=== PATIENT | female | born 1965 | race Hispanic/Latino ===

== ENCOUNTER 2016-03-16 16:55 | Emergency (ER) | payer OTHER ==
[~2016-03-16 16:55] MED LIST: ADV500INH INH; ASPI81TA60 PO; CETI10TA PO; FLUT22IN INH; GABA600T PO; IBUP80TA PO; METF500T PO; NEXI20CA PO; PROA1AER INH; PULM1SUS INH; SING10TA32 PO; SPIR1CAP INH; TYLE500T78 PO; VALS1TAB47 PO; VENL37TA PO; ZITH500T PO
== END 2016-03-16 18:36 | disposition left against medical advice (07) ==
LOC: M ED 16:55
DX: R11.2 Nausea with vomiting, unspecified (principal); Z53.20 Procedure and treatment not carried out because of patient's decision for unspecified reasons

== ENCOUNTER 2016-08-20 00:22 | Emergency (ER) | payer OTHER ==
[~2016-08-20] VITALS: Ht 162.6 cm; Wt 88.9 kg
[2016-08-20 00:37] VITALS: BP 103/80
[2016-08-20] MEDS ORDERED: SERO400T PO (00:51)
[2016-08-20] MEDS ORDERED: CAPS0.1C EX (00:51)
[2016-08-20] MEDS ORDERED: PROZ20CA11 PO (00:51)
[2016-08-20] MEDS ORDERED: ASPI325T28 PO (00:51)
[2016-08-20] MEDS ORDERED: LUNE1TAB9 PO (00:51)
[2016-08-20] MEDS ORDERED: GEMF600T PO (00:51)
[2016-08-20] MEDS ORDERED: PROV100T4 PO (00:51)
[2016-08-20] MEDS ORDERED: LYRI75CA PO (00:51)
[2016-08-20] MEDS ORDERED: DONETAB5 PO (00:51)
[2016-08-20] MEDS ORDERED: XOLA150S SC (00:51)
[2016-08-20] MEDS ORDERED: plaquenil PO (00:51)
[2016-08-20] MEDS ORDERED: LIDOCAINE W/EPINEPHRINE 1% 20ML VIAL As Ordered ONE (02:41)
[2016-08-20] MEDS ORDERED: BUPIVACAINE HCL 0.5% 10 ML VIAL As Ordered ONE (02:41)
[2016-08-20] MEDS ORDERED: BUPIVACAINE HCL 0.5% 30 ML VIAL SC ONE (02:45)
[2016-08-20] MEDS ORDERED: LIDOCAINE W/EPINEPHRINE 1% 20ML VIAL SC ONE (02:45)
[2016-08-20] MEDS ORDERED: CETACAINE SPRAY 20GM (FLOOR STOCK) TOP ONE (02:45)
[2016-08-20] MEDS ORDERED: CETACAINE SPRAY 20GM (FLOOR STOCK) As Ordered ONE (02:46)
[2016-08-20] MEDS ORDERED: CLINDAMYCIN 150 MG CAP PO ONE (03:15)
[2016-08-20] MEDS ORDERED: CLIN1CAP5 PO (03:16)
== END 2016-08-20 03:40 | disposition home or self-care (01) ==
LOC: M ED 02:52
DX: K02.9 Dental caries, unspecified (principal); K08.89 Other specified disorders of teeth and supporting structures; I10 Essential (primary) hypertension; M79.7 Fibromyalgia; K21.9 Gastro-esophageal reflux disease without esophagitis; F32.9 Major depressive disorder, single episode, unspecified; Z79.82 Long term (current) use of aspirin; Z79.899 Other long term (current) drug therapy; Z79.84 Long term (current) use of oral hypoglycemic drugs; Z88.5 Allergy status to narcotic agent

== ENCOUNTER 2016-09-29 15:39 | Emergency (ER) | payer OTHER ==
[~2016-09-29] VITALS: Ht 162.6 cm; Wt 88.0 kg
[2016-09-29 15:39] VITALS: BP 118/63
[~2016-09-29 15:39] MED LIST changes: +ASPI325T28 PO; +CAPS0.1C EX; +CLIN150C14 PO; +DONETAB5 PO; +GEMF600T PO; +LUNE2TAB23 PO; +LYRI75CA PO; -METF500T PO; +METF500T13 PO; -PROA1AER INH; +PROAAER10 INH; +PROV100T25 PO; +PROZ20CA11 PO; +SERO400T PO; +XOLA150S SC; +plaquenil PO
[2016-09-29] MEDS ORDERED: NAPR500T3 PO (16:11)
[2016-09-29] MEDS ORDERED: CYCLOBENZAPRINE 10 MG TAB PO ONE (16:30)
[2016-09-29] MEDS ORDERED: KETOROLAC 60 MG/2 ML VIAL (J1885) IM ONE (16:30)
--- NOTE | 2016-09-29 17:24 | REP ---
CT LUMBAR SPINE WITHOUT CONTRAST: HISTORY: Back pain. There is no disc bulge or herniation at the L1-2 through L3-4 and L5-S1 levels. There is hypertrophy of the posterior articulating facets at the L5-S1 level. The nerves exit the neural foramina without compression. A diffuse disc bulge is present at the L4-5 level. There is minimal compression of the thecal sac. There is hypertrophy of the posterior articulating facets. There are 3 mm of grade 1 spondylolisthesis of L 4 on 5. The L4 nerves exit the neural foramina without compression. The intervertebral discs are normal in height. There is no fracture. IMPRESSION:Diffuse disc bulge at the L4-5 level with minimal thecal sac compression. There is grade 1 spondylolisthesis of L4 on 5. Signed by Pan Aquino MD 09/29/2016 05:30 P
== END 2016-09-29 17:32 | disposition home or self-care (01) ==
LOC: M ED 15:39
DX: G89.29 Other chronic pain (principal); M54.5 Low back pain; E78.00 Pure hypercholesterolemia, unspecified; I10 Essential (primary) hypertension; J45.909 Unspecified asthma, uncomplicated; E11.9 Type 2 diabetes mellitus without complications; K92.9 Disease of digestive system, unspecified; N73.9 Female pelvic inflammatory disease, unspecified; K76.0 Fatty (change of) liver, not elsewhere classified; M41.9 Scoliosis, unspecified; F41.9 Anxiety disorder, unspecified; F32.9 Major depressive disorder, single episode, unspecified; F43.10 Post-traumatic stress disorder, unspecified; F90.9 Attention-deficit hyperactivity disorder, unspecified type; M32.9 Systemic lupus erythematosus, unspecified; Z79.82 Long term (current) use of aspirin; Z79.899 Other long term (current) drug therapy; Z79.84 Long term (current) use of oral hypoglycemic drugs; Z88.5 Allergy status to narcotic agent
CPT/HCPCS: 72131; 96372; 99282; J1885

== ENCOUNTER 2016-10-26 14:14 | Inpatient (IN) | payer OTHER ==
[~2016-10-26] VITALS: Ht 162.6 cm; Wt 88.2 kg
[2016-10-26] MEDS: FLUTICASONE HFA 220 MCG 12 GM INHALER (FLOVENT) INH SCH (01:25)
[~2016-10-26 14:14] MED LIST changes: +NAPR500T3 PO
[2016-10-26] MEDS ORDERED: TRAZ-136 PO (14:40)
--- NOTE | 2016-10-26 15:07 | REP ---
Head CT without contrast: History: Facial droop. Comparison study: No comparison brain imaging. CT findings: Bone window settings demonstrate an intact bony calvarium. There is no evidence of skull fracture or incidental bony calvarial lesion. The visualized paranasal sinuses appear clear. No intraorbital abnormality is seen. On soft tissue window setting images; the lateral, third, and fourth ventricles are normal in size and position. Ricardo-white differentiation pattern is normal above and below the tentorium. There are is no evidence of intracranial hemorrhage. No mass, edema, infarction, or midline shift is seen. No extra-axial fluid collection is appreciated. Impression: Negative noncontrast head CT. Signed by Rob Mendoza MD 10/26/2016 02:58 P
[2016-10-26 15:14] LABS: BASO % 0.3 % (0.0-1.0); EOS # 0.3 K/mm3 (0.0-0.50); EOS % 4.3 % (0.0-3.0); LARGE UNSTAINED CELL # 0.1 K/mm3 (0.0-0.4); LARGE UNSTAINED CELL % 2.1 % (0.0-4.0); LYMPH # 2.1 K/mm3 (1.5-4.5); LYMPH % 33.4 % (24.0-44.0); MEAN CORPUSCULAR HEMOGLOBIN 28.4 pg (27.0-33.0); MEAN CORPUSCULAR HGB CONC 33.9 g/dl (32.0-36.5); MEAN CORPUSCULAR VOLUME 83.9 fl (80.0-96.0); MONO # 0.3 K/mm3 (0.0-0.8); MONO % 4.9 % (0.0-5.0); NEUTROPHILS # 3.5 K/mm3 (1.8-7.7); PLATELET COUNT, AUTOMATED 203 k/mm3 (150-450); RED CELL DISTRIBUTION WIDTH 13.7 % (11.5-14.5); WHITE BLOOD COUNT 6.3 K/mm3 (4.0-10.0)
[2016-10-26 15:20] LABS: INR 1.01
[2016-10-26 15:30] LABS: ANION GAP 4 MEQ/L (8-16); BLOOD UREA NITROGEN 16 MG/DL (7-18); CALCIUM LEVEL 9.6 MG/DL (8.5-10.1); CARBON DIOXIDE LEVEL 30 MEQ/L (21-32); CHLORIDE LEVEL 107 MEQ/L (98-107); CREATININE FOR GFR 0.91 MG/DL (0.55-1.02); GLOMERULAR FILTRATION RATE > 60.0 (>51); GLUCOSE, FASTING 98 MG/DL (70-105); POTASSIUM SERUM 3.8 MEQ/L (3.5-5.1); SODIUM LEVEL 141 MEQ/L (136-145)
--- NOTE | 2016-10-26 15:42 | REP ---
Portable chest x-ray: Sitting AP view. History: CVA. Comparison chest x-ray April 28, 2015. Findings: EKG monitoring electrodes overlie the chest. The heart is not enlarged. There is a zone of linear fibrosis versus plate-like atelectasis in the left base. Lung bingham are otherwise clear. Pulmonary vasculature is not increased. No significant bony abnormality. Impression: Linear plate-like atelectasis versus fibrosis left base. Otherwise no active disease. Signed by Rob Mendoza MD 10/26/2016 03:59 P
[2016-10-26] MEDS ORDERED: BUDESONIDE 0.5 MG/2 ML INHALATION SUSPENSION INH SCH (20:00)
[2016-10-26] MEDS ORDERED: SERO200T PO (20:57)
[2016-10-26] MEDS ORDERED: BUDE0.5S6 INH (20:57)
[2016-10-26] MEDS ORDERED: DONE5TAB17 PO (20:57)
[2016-10-26] MEDS ORDERED: CINN500C9 PO (20:57)
[2016-10-26] MEDS ORDERED: RITA20CA PO (20:57)
[2016-10-26] MEDS ORDERED: ALBU83IN INH (20:57)
[2016-10-26] MEDS ORDERED: ASPI325T24 PO (20:57)
[2016-10-26] MEDS ORDERED: EPIP0.3I2 INJ (20:57)
[2016-10-26] MEDS ORDERED: OMEP20CA3 PO (20:57)
[2016-10-26] MEDS: ATORVASTATIN 20 MG TAB PO SCH (21:00)
[2016-10-26] MEDS ORDERED: ASPIRIN 300 MG SUPP PR ONE (22:00)
[2016-10-26] MEDS ORDERED: ALBUTEROL SULFATE 2.5 MG/0.5 ML INH NEB SOLN INH PRN (23:15)
[2016-10-26] MEDS: MORPHINE 2 MG/ML 1ML SYRINGE IV PRN (23:46)
[2016-10-26 23:55] VITALS: BP 136/73
[2016-10-27] MEDS: ADVAIR HFA 230/21MCG INHALER INH SCH ×3 (01:25→20:38)
[2016-10-27 03:10] VITALS: BP 118/65
[2016-10-27 04:05] VITALS: BP 128/64
[2016-10-27 05:14] LABS: BASO % 0.8 % (0.0-1.0); EOS # 0.4 K/mm3 (0.0-0.50); EOS % 7.8 % (0.0-3.0); LARGE UNSTAINED CELL # 0.1 K/mm3 (0.0-0.4); LARGE UNSTAINED CELL % 2.1 % (0.0-4.0); LYMPH # 2.4 K/mm3 (1.5-4.5); LYMPH % 42.9 % (24.0-44.0); MEAN CORPUSCULAR HEMOGLOBIN 27.5 pg (27.0-33.0); MEAN CORPUSCULAR HGB CONC 32.8 g/dl (32.0-36.5); MEAN CORPUSCULAR VOLUME 83.9 fl (80.0-96.0); MONO # 0.3 K/mm3 (0.0-0.8); MONO % 6.4 % (0.0-5.0); NEUTROPHILS # 2.1 K/mm3 (1.8-7.7); PLATELET COUNT, AUTOMATED 191 k/mm3 (150-450); WHITE BLOOD COUNT 5.3 K/mm3 (4.0-10.0)
[2016-10-27 05:43] LABS: INR 1.06
[2016-10-27 05:49] LABS: ALBUMIN 3.4 GM/DL (3.2-5.2); ALBUMIN/GLOBULIN RATIO 0.83 (1.00-1.93); ALKALINE PHOSPHATASE 91 U/L (45-117); ALT/SGPT 19 U/L (12-78); ANION GAP 9 MEQ/L (8-16); AST/SGOT 15 U/L (15-37); BILIRUBIN,TOTAL 0.3 MG/DL (0.2-1.0); BLOOD UREA NITROGEN 15 MG/DL (7-18); CALCIUM LEVEL 8.5 MG/DL (8.5-10.1); CARBON DIOXIDE LEVEL 28 MEQ/L (21-32); CHLORIDE LEVEL 108 MEQ/L (98-107); CREATININE FOR GFR 0.84 MG/DL (0.55-1.02); GLOMERULAR FILTRATION RATE > 60.0 (>51); GLUCOSE, FASTING 104 MG/DL (70-105); POTASSIUM SERUM 3.7 MEQ/L (3.5-5.1); SODIUM LEVEL 145 MEQ/L (136-145); TOTAL PROTEIN 7.5 GM/DL (6.4-8.2)
[2016-10-27 08:00] VITALS: BP 100/57
[2016-10-27] MEDS: TIOTROPIUM INHALER/CAPSULE (SPIRIVA) INH SCH (08:22)
[2016-10-27] MEDS: ASPIRIN 325 MG TAB PO SCH (08:56)
[2016-10-27] MEDS ORDERED: SLF 3 ML SYR IV PRN (09:30)
[2016-10-27] MEDS: FLUTICASONE HFA 220 MCG 12 GM INHALER (FLOVENT) INH SCH ×2 (11:21→20:38)
[2016-10-27 12:00] VITALS: BP 117/64
[2016-10-27] MEDS: SLF 3 ML SYR IV SCH ×2 (12:46→20:32)
--- NOTE | 2016-10-27 13:16 | REP ---
MRI BRAIN WITHOUT CONTRAST: 10/26/2016. Clinical history: Facial droop, left-sided. Left-sided weakness. Paresthesias. Comparison: CT brain without contrast today. Technique: Sagittal T1 with axial T1, T2, FLAIR, gradient echo, diffusion-weighted images and ADC mapping sequences. Findings: Lateral ventricles generally symmetric without displacement from the midline or abnormal dilatation. There is no cerebral atrophy. Third and fourth ventricles are grossly unremarkable. Basal ganglia are symmetric and without hyperintense T2 or FLAIR signal abnormalities. Cortical stripe is preserved. The jones-white junction differentiation is well maintained. There is a punctate focus of T2 and FLAIR hyperintense signal along the subcortical posterior frontal white matter on the right and subcortical posterior parietal white matter bilaterally. I see no definite vascular territory infarct, intracranial hemorrhage, mass, mass effect or edema. Brainstem was unremarkable. Cerebellum shows no atrophy, hemorrhage or mass. Basal cisterns are intact. Seventh/eighth cranial nerve complexes and mastoids are normal. Slight deviation of nasal septum to the right and minor mucosal thickening in some of the ethmoid air cells. The other visualized sinuses were clear, although the right maxillary sinus is diminutive, on a developmental basis. The diffusion weighted images and the ADC mapping sequence shows no evidence of acute infarct or restricted water diffusion. The corpus callosum, optic chiasm and pituitary were intact. I do not see cerebellar tonsillar ectopia. Impression: 1. No evidence of an acute infarct, hemorrhage, mass, significant white matter changes or other acute findings. There are a few punctate subcortical frontal and parietal white matter hyperintense T2 and FLAIR foci, which are nonspecific. 2. No restricted water diffusion or evidence of acute ischemia on the diffusion weighted images and ADC mapping sequences. 3. Brainstem, cerebellum, cortical stripe and the remainder of the visualized brain grossly intact. Signed by Ivan Rich MD 10/27/2016 08:59 A
--- NOTE | 2016-10-27 13:16 | REP ---
MRA BRAIN WITHOUT CONTRAST: 10/26/2016. Clinical history: Facial droop left eye, lower extremity weakness on the left. Comparison: MRI brain and CT brain 10/26/2016 Technique: 3D [id number] gradient echo images with MIP reformatting and rotational display of the volume reconstructions about the longitudinal and horizontal axis of the brain. All source images are reviewed. Findings: The vertebral arteries show generally symmetric supply to the basilar artery formation. No basilar stenosis or basilar tip aneurysm identified. There are posterior communicating arteries from the basilar tip, larger caliber right than left and bilateral origins of the posterior cerebral arteries are present from the posterior margin of the internal carotids. This is an anatomic variant and provides generally symmetric flow to the posterior fossa. The right internal carotid from the skull base to the carotid siphon shows no significant stenosis. In the carotid siphon there is mild plaque without aneurysm or significant stenosis. Supraclinoid carotid, A1, M1 segment and the trifurcation vessels were unremarkable. The A2 segment shows no significant stenosis at its origin. The left internal carotid likewise shows no stenosis or aneurysm from the skull base to the carotid siphon. In the carotid siphon there is only minimal atherosclerotic narrowing of the supraclinoid, A1 and M1 segments as well as the A2 and trifurcation vessels on that left side, all unremarkable. Impression: 1. There is no evidence of cerebral vascular stenosis, aneurysm, vessel cutoff or other acute finding. origins of the posterior cerebral artery are noted on both sides as an anatomic variation. Signed by Ivan Rich MD 10/27/2016 08:59 A
--- NOTE | 2016-10-27 15:13 | HPE ---
DATE OF ADMISSION: 10/26/2016 Most of the history is obtained from the patient who is a good historian. CHIEF COMPLAINT: Severe weakness on the left side, as well as facial droop. HISTORY OF PRESENT ILLNESS: This is a 51-year-old female with a past medical history of lupus, hypertension, and some psychiatric issues who comes in complaining that since 5 p.m. today she has had a sudden droop about the left side of her mouth and has had difficulty with speech. This is new. The patient states as well though that approximately one week ago she had the sudden onset of weakness in the left arm while she was driving and this has not resolved though she did not seek any further medical treatment for it. The weakness is still present in the left arm. She also states that approximately two days ago she began to have sensation changes in the left lower extremity coming all the way up to the chest. This was numbness throughout the entire left side of the body which she also still has. She also complains of minor weakness in the left side which is also new. These symptoms have never occurred to the patient before, she denies any fever or chills. The patient has not had previous palpitations, she has never been diagnosed with any type of arrhythmia in the past. The patient denies any recent tick bite. She is a smoker and has a history of high cholesterol in the past. The patient was diagnosed previously with lupus but is not able to tell me whether she has had any type of hematological abnormalities associated with this diagnosis or how the diagnosis was reached. The patient denies any previous rashes or joint pains of any kind. The patient has never had previous transient ischemic attacks (TIAs) in the past and has never had any previous heart disease. PAST MEDICAL HISTORY: 1. Hypertension. 2. Lupus. 3. Fibromyalgia. 4. Hyperlipidemia. 5. Depression. 6. Insomnia. 7. Attention deficit hyperactivity disorder (ADHD). 8. Chronic pulmonary obstructive disease (COPD) or asthma. CURRENT MEDICATIONS: - albuterol four times daily as needed - aspirin 325 mg daily - budesonide 0.5 mg inhalation twice daily - cetirizine 10 mg daily - donepezil 5 mg daily - fluoxetine 20 mg daily - fluticasone 125 puffs inhalation twice daily - gemfibrozil 600mg twice daily - Provigil 100 mg daily - Singulair 10 mg nightly - omalizumab 150 mg every month - omeprazole 20 mg daily - Lyrica 75 mg twice daily - Seroquel 200 mg daily - Advair 500/50 mcg inhaled, one puff twice daily - Spiriva 18 mcg inhalation once daily - trazodone 100 mg daily - Valsartan 160 mg daily ALLERGIES: The patient has an allergy to CODEINE which causes severe itching and a rash. SOCIAL HISTORY: The patient is a smoker for 34 years. No history of alcoholism or drug use, currently disabled. PAST SURGICAL HISTORY: 1. Tubal ligation. 2. Gallbladder resection. 3. Heart surgery for a hole in the heart associated with rheumatic fever. FAMILY HISTORY: Significant for breast cancer in the aunt and pancreatic cancer in her dad. REVIEW OF SYSTEMS: Other than the above mentioned, denies any constitutional symptoms or any cardiac, pulmonary, digestive, endocrine, hematological, psychiatric, neurologic, musculoskeletal or dermatological disease. PHYSICAL EXAMINATION: VITAL SIGNS: On arrival to the emergency room pulse is 68 with a blood pressure of 131/81, breathing at 16 and afebrile. GENERAL APPEARANCE: The patient is a 51-year-old female laying in bed. She certainly has a left sided facial droop and is lethargic. EYES: Pupils equal, round, and reactive to light without icterus. OROPHARYNGEAL EXAM: Dentition in very poor condition. NECK EXAM: No thyromegaly. Trachea midline. Neck supple. LYMPHATIC EXAM: No cervical or axial lymphadenopathy. CARDIAC EXAM: Regular rate and rhythm. No rubs, murmurs or gallops. No jugular venous distention (JVD). No edema. RESPIRATORY EXAM: Clear to auscultation bilaterally with good effort. ABDOMINAL EXAM: Nontender, slightly distended, no masses palpated. PERIPHERAL EXAM: No clubbing, cyanosis or edema noted. NEUROLOGICAL EXAM: The patient has weakness on the left eye exam compared to the right. She is able to furrow her forehead bilaterally. She has a left sided droop of her mouth compared to the right. There is more weakness in the left upper extremity compared to the right. There is more weakness in the left lower extremity compared to the right as well, more distal weakness, the proximal muscles are intact. The patient has numbness across the entire left side of the body beginning specifically around the midclavicular line on the left side. LAB DATA: The patient's white cell count is 6,000 with a hematocrit of 35, platelet count 203 with a MCV of 84, RDW 14. ESR 48. Chemistries show a sodium 141, potassium 3.8, bicarbonate 30, BUN and creatinine of 16 and 0.91 with a calcium of 9.6. Troponin is negative. CRP 0.37. Coagulation profile shows a PT of 13, INR 1 and PTT 32. Lyme disease is currently pending. CT of the brain was done and shows no acute infarct. Chest x-ray shows linear plate-like atelectasis versus fibrosis at the left base, no active disease. EKG is personally reviewed as well. It shows normal sinus, normal axis at 74 with flat T waves in V2. ASSESSMENT: This is a 51-year-old female now presenting with signs consistent with probably acute cerebral vascular accident (CVA). The patient may have had multiple events over the last one week and possibly has a embolic phenomenon although the CT scan at this time appears to be negative. The patient needs to be admitted to the inpatient medrano for further monitoring and evaluation. Of note, the patient may have a hypercoagulable disorder secondary to previous lupus although the patient's coagulation profile at this time goes against this diagnosis. PROBLEM LIST: 1. Acute CVA: Will admit the patient to the inpatient unit on progressive care unit (PCU) at this time, in the a.m. will check a lipid panel and a hemoglobin A1c, as well as Lyme serology. Will get a swallowing evaluation in the morning, at this time will hold the patient's by mouth medications. Carotid ultrasound will be checked, as well as echocardiogram for further evaluation. Will hold the patient's blood pressure medications to allow for permissive hypertension at this time for the next 48 hours, physical and occupational therapy will be requested and hypercoagulable work up will also be sent. Aspirin and Lipitor will be started at this time and aspirin will be given as a suppository. 2. Hypertension: Hold the patient's blood pressure medications at this time to allow for permissive hypertension. 3. Hyperlipidemia: Will start Lipitor at this time and check a lipid panel in the morning. 4. Depression: Continue the patient's usual medications and monitor psychiatric status. Deep venous thrombosis (DVT) prophylaxis: The patient will be on Lovenox once daily. DIET: Diet will be a diet as set by swallow evaluation. For now she will remain nothing by mouth until swallowing evaluation.
[2016-10-27] MEDS: HEPARIN SOD (PORCINE) 5000 UNITS/ML VIAL SQ SCH ×2 (15:47→20:32)
[2016-10-27 16:00] VITALS: BP 128/69
--- NOTE | 2016-10-27 16:17 | IPN ---
DATE: 10/27/2016 SUBJECTIVE: The patient is seen and examined in the room today. The patient had physical therapy in the morning. When I saw the patient, the patient still complained about the left-sided weakness. The patient also noticed continuous blinking of the left eye causing lightheadedness and dizziness. The patient also noticed sensation of the left side is also decreased compared to the right side. OBJECTIVE: VITAL SIGNS: Temperature is 96.5, pulse is 69, respiratory rate 18, blood pressure is 100/57, pulse oximetry is 94% in room air. GENERAL: No sign of acute distress, alert and oriented times three. HEENT: Normocephalic, atraumatic. Extraocular motor grossly intact. CARDIOVASCULAR: Positive S1, S2, regular rate. LUNGS: Clear to auscultation bilaterally. ABDOMEN: Soft, nontender, nondistended. Bowel sounds present. EXTREMITIES: No edema. No cyanosis. NEUROLOGICAL: Sensation to fine touch is decreased of the left upper extremity compared to the right side. There is also noted to have decreased muscle strength of the left-sided extremities. LABORATORY DATA: WBC 5.3, hemoglobin 11.3, hematocrit 34.3, platelet count is 191. Sodium is 145, potassium 3.7, chloride is 108, carbon dioxide 28, BUN 15, creatinine 0.84, GFR greater than 60, fasting glucose 104, calcium is 8.5, total bilirubin is 0.3, AST is 15, ALT is 19, alkaline phosphatase 91, total protein is 7.5, albumin is 3.4. ASSESSMENT AND PLAN: 1. Left-sided extremity weakness and numbness. Initial symptoms occurred approximately a week ago while the patient was driving. Now, there is recurrence of the symptoms and it came back in a more severe fashion. The patient has persistent symptoms since admission. Noncontrast CT is negative. MRI was performed which showed no evidence of acute infarct, hemorrhage or mass. We have consulted neurology to give us further insight. The patient is on aspirin. The patient is monitored on telemetry. The patient does have a history of a stroke and lupus. 2. Chronic obstructive pulmonary disease (COPD), currently does not have any exacerbation. 3. History of lupus. 4. Fibromyalgia. 5. Restless leg syndrome. 6. Anxiety. 7. Deep vein thrombosis (DVT) prophylaxis, on heparin.
[2016-10-27] MEDS: ACETAMINOPHEN TAB 650MG DOSE (2X325MG) PO PRN ×2 (17:13→23:14)
--- NOTE | 2016-10-27 19:40 | ECHO ---
DATE OF PROCEDURE: 10/27/2016 REFERRING PHYSICIAN: Dr. Santoyo INDICATIONS: Stroke. HEIGHT: 163 cm WEIGHT: 86 kg DIMENSIONS: IVS: 1.1 LV: 4.1 LVPW: 1.0 LA: 3.5 Aorta: 3.1 FINDINGS: The study is of acceptable technical quality. Left ventricle is of normal size and systolic function. Estimated left ventricle ejection fraction (LVEF) 60-65%. Right ventricle is also normal size and systolic function. Both atria appear normal. Aortic mitral and tricuspid valves appear normal. Pulmonic valve was not well seen. No pericardial effusion is noted. Inferior vena cava is normal size. Aortic root, aortic arch and visualized segment of abdominal aorta appear normal. Doppler interrogation reveals no aortic stenosis or insufficiency. There is trace mitral and trace tricuspid insufficiency. Calculated pulmonary artery pressure is within normal limits. Mitral inflow pattern and tissue Doppler imaging of mitral annulus reveal normal diastolic functional left ventricle (E prime septal and lateral velocities are 9.2 and 11.6 cm/sec respectively). CONCLUSIONS: 1. Study is of acceptable technical quality. 2. Normal left ventricle (LV) size, systolic and diastolic function. 3. No significant valvular disease. 4. Normal central venous pressure and probably normal pulmonary artery pressure. COMMENT: Subacute bacterial endocarditis (SBE) prophylaxis is not recommended. Essentially normal echocardiogram.
[2016-10-27 20:00] VITALS: BP 124/65
--- NOTE | 2016-10-27 20:11 | REP ---
Bilateral carotid artery duplex ultrasound: Peak flow velocity analysis: RIGHT LEFT ICA. Peak flow velocity cm/sec 63 40 ICA Diastolic flow velocity cm/sec 21 16 ICA/CCA Ratio 0.91 0.59 There is shallow atheromatous plaque in the common carotid artery extending into the bulbs bilaterally. This extends into the proximal internal carotid artery on the right. It does not extend into the external carotid on the right. There is not extending into the internal carotid artery or external carotid artery on the left. Peak flow velocities are normal bilaterally. There is no stenosis on the right on the left. The vertebral arteries could not be visualized. Signed by Gary Johansen MD 10/27/2016 08:03 P
[2016-10-27] MEDS: predniSONE 20 MG TAB PO SCH (20:31)
[2016-10-27] MEDS: ATORVASTATIN 20 MG TAB PO SCH (20:31)
[2016-10-27] MEDS: POLYVINYL ALCOHOL OPHTH SOLN 15 ML(LIQUITEARS) OD SCH ×3 (20:32→23:00)
[2016-10-27] MEDS ORDERED: LACRILUBE (AKWA TEARS) OPHTH OINT 3.5 GM OD SCH (21:00)
[2016-10-28] VITALS: BP 119/56
[2016-10-28] MEDS: MORPHINE 2 MG/ML 1ML SYRINGE IV PRN ×2 (00:07→05:06)
[2016-10-28] MEDS: POLYVINYL ALCOHOL OPHTH SOLN 15 ML(LIQUITEARS) OD SCH ×15 (01:00→14:00)
[2016-10-28 04:00] VITALS: BP 130/80
[2016-10-28] MEDS: HEPARIN SOD (PORCINE) 5000 UNITS/ML VIAL SQ SCH ×2 (05:09→14:00)
[2016-10-28] MEDS: SLF 3 ML SYR IV SCH ×2 (05:17→14:00)
--- NOTE | 2016-10-28 06:00 | REPUSA ---
CLINICAL HISTORY: Suspected sarcoidosis. TECHNIQUE: Multiple axial CT images were obtained through chest with IV contrast material. MPR scott l and sagittal sequences were obtained. COMMENTS: Atelectatic changes in the lingula. Atelectatic changes in the lower lobes. There is no evidence of pleural or parenchymal mass. There are no pleural effusions. There is no evid ence of hilar or mediastinal lymphadenopathy. The heart and great vessels are within normal limits. The visualized portions of the liver are of uniform attenuation without mass or defect. There is no i ntra or extrahepatic biliary ductal dilatation. The spleen is unremarkable. The visualized pancreas i s of normal contour and attenuation characteristics. There is no evidence of adrenal mass. The visual ized portions of the kidneys present no abnormalities. The bony structures are free of lytic or blastic lesions. IMPRESSION: Atelectatic changes in the lingula. Atelectatic changes in the lower lobes. Thank you for your kind referral of this patient.
[2016-10-28 08:00] VITALS: BP 123/71
[2016-10-28] MEDS: ADVAIR HFA 230/21MCG INHALER INH SCH (08:14)
[2016-10-28] MEDS: TIOTROPIUM INHALER/CAPSULE (SPIRIVA) INH SCH (08:14)
[2016-10-28] MEDS: FLUTICASONE HFA 220 MCG 12 GM INHALER (FLOVENT) INH SCH (08:14)
--- NOTE | 2016-10-28 08:38 | ECGEPIP ---
Stationary ECG Study [facility] - ED Test Date: 2016-10-26 Pat Name: ZAHIDA RICHMOND Department: Room: - Gender: F Cafeteria Operator: PAULIE : 1965 Requested By: Gerri Ruggiero Order Number: [id number] Reading MD: Gerri Ruggiero Measurements Intervals [place] Rate: 79 P: 47 W[place]: 159 QRS: 70 QRSD: 99 T: 66 QT: 403 QTc: 462 Interpretive Statements SINUS RHYTHM DECREASED RATE 04/28/15 Electronically Signed On 10-28-2016 8:38:01 EDT by Gerri Ruggiero
--- NOTE | 2016-10-28 08:40 | ECGEPIP ---
Stationary ECG Study [facility] - ED Test Date: 2016-10-26 Pat Name: ZAHIDA RICHMOND Department: Room: - Gender: F Hand Collator: : 1965 Requested By: Gerri Ruggiero Order Number: [id number] Reading MD: Gerri Ruggiero Measurements Intervals [place] Rate: 74 P: 54 W[place]: 144 QRS: 80 QRSD: 98 T: 77 QT: 404 QTc: 450 Interpretive Statements SINUS RHYTHM DECREASED RATE 10/26/16 14:50 Electronically Signed On 10-28-2016 8:40:31 EDT by Gerri Ruggiero
[2016-10-28] MEDS: ASPIRIN 325 MG TAB PO SCH (09:23)
[2016-10-28] MEDS: predniSONE 20 MG TAB PO SCH (09:24)
--- NOTE | 2016-10-28 11:05 | CR ---
DATE: 10/28/2016 REQUESTING PROVIDER: Dr. Cervantes REASON FOR CONSULTATION: Concern for possible sarcoidosis. SUBJECTIVE: Yasmeen is a 51-year-old female known to me for asthma, severe and persistent in nature. She also has a history of lupus. She has had some neurologic symptoms and based on the distribution of these symptoms there was concern for possible sarcoid. Currently, her neurologic evaluation is not yet complete; however, chest CT was performed in order to ensure there was no evidence of sarcoid of the lung. She has had no new skin nodules. No symptoms of uvitis. She denies any chest pain. No lower extremity edema. She has had left arm and leg weakness and a facial droop. She is currently wearing an eye patch over her right eye. She states she has no shortness of breath. No cough, fever, chills. No recent exacerbation of her asthma. She feels that her breathing is "good." PHYSICAL EXAMINATION Temperature is 96.4, pulse is 75, respiratory rate is 18, blood pressure is 123/71 with an oxygen saturation of 92% on room air. GENERAL: The patient is sitting in bed with some facial asymmetry, right eye patch without any respiratory distress. HEENT: The left eye pupil is equal, react to light. Mucous membranes are moist without lesions. Tongue is midline. Oropharynx without erythema or exudate. NECK: Supple. No tracheal deviation or mass. No elevated jugular venous pressure. No thyromegaly. LYMPHATICS: No cervical, supraclavicular, axillary adenopathy. CARDIAC: Regular S1, S2 without audible murmur, rub or gallop. PMI is nondisplaced. There is no peripheral edema. PULMONARY: Clear to auscultation without rales, rhonchi or wheezes. No accessory muscle use. No dullness to percussion. ABDOMEN: Soft, nontender, nondistended. No hepatosplenomegaly. No masses. EXTREMITIES: No cyanosis, clubbing or edema. Skin is tanned, cool and dry. No rash, jaundice or bruising. NEUROLOGIC: We will defer to the neurology exam as performed by the admitting physician and neurologist. LABORATORY EVALUATION: Shows no evidence of hypercalcemia. White blood cell count is 5.3, hemoglobin is 11.2. ESR is elevated at 48. Sodium is 145, potassium 3.7, chloride 108, bicarbonate 28, anion gap is 9, BUN is 15, creatinine 0.84, calcium is 8.5, AST and ALT are normal at 15 and 19, respectively. Albumin is 3.4. Angiotensin converting enzyme is pending. INR is 1.06, TUSHAR anticardiolipin are pending. Chest CT was reviewed from 10/28/2016. I agree with formal radiologic interpretation that there is no significant findings other than mild atelectasis. I do not see any interstitial lung disease consistent with sarcoid. There are no pulmonary nodules consistent with sarcoid. I do not find any significant adenopathy either hilar or mediastinal. There are no other significant lesions. No pleural effusions or pericardial effusions. IMPRESSION: 1. Abnormal chest CT, most consistent with atelectasis. No evidence of sarcoid by history or by chest CT. It is quite possible that someone could have sarcoid without any pulmonary manifestations despite pulmonary manifestations being the predominant presenting symptom. She does not appear to have skin manifestations of sarcoid or uvulitis. 2. Asthma. Currently under good control. Continue inhaled therapy. 3. Weathers's palsy. Workup and management per primary team and neurology. 4. Elevated ESR likely from her underlying lupus. If there are questions regarding her rheumatologic status, would speak with her client evaluator, Dr. Hernandez, in [place].
[2016-10-28] MEDS ORDERED: VALA1TAB2 PO (11:54)
[2016-10-28] MEDS ORDERED: AKWASOL OD (11:54)
[2016-10-28] MEDS ORDERED: PRED10TA2 PO (11:54)
[2016-10-28] MEDS ORDERED: Artificial Tears Op Oint OD (11:56)
[2016-10-28 12:00] VITALS: BP 136/81
--- NOTE | 2016-10-28 23:02 | DSES ---
DATE OF ADMISSION: 10/26/2016 DATE OF DISCHARGE: 10/28/2016 PRIMARY CARE PROVIDER: [facility] CONSULTANTS: Neurologist, Dr. Cervantes RELIGIOUS ASSISTANT: Dr. Jairon Olvera PROCEDURES: None. COMPLICATIONS: None. DISCHARGE DIAGNOSES: 1. Weathers's palsy. 2. Chronic obstructive pulmonary disease. 3. Lupus. 4. Fibromyalgia. 5. Restless leg syndrome. 6. Anxiety. HOSPITALIZATION COURSE: Patient is a 51-year-old female who presented to [facility] on 10/26/2016 with right-sided facial droop and also left-sided extremity weakness. Patient was admitted to telemetry and neurologist consulted. Speech therapist also consulted for swallow evaluation. Patient was started on aspirin and statin therapy. MRA/MRI of the brain was also obtained and neurologist consulted. Later, MRI/MRA results both came back negative for acute infarction or stroke. After evaluation patient was most likely to have Weathers's palsy, and patient started on steroids. Due to concern for possible sarcoidosis, crowning hammer operator, Dr. Jairon Olvera also consulted. Later on 10/28/2016, patient was determined medically stable for discharge with recommendation to finish a course of tapering steroid for her Weathers's palsy, and patient recommended to followup with primary care provider and neurology at the scheduled time. OBJECTIVE: VITAL SIGNS: Temperature 97.9, pulse is 75, respirations 20, blood pressure is 136/81, pulse oximetry 95% on room air. LABORATORY DATA: WBC 5.3, hemoglobin 11.2, hematocrit 34.3, platelet count is 191. Sodium is 145, potassium 3.7, chloride is 108, carbon dioxide 28, BUN 15, creatinine 0.84, GFR greater than 60, fasting glucose 104, calcium 8.5. Direct bilirubin 0.3, AST 15, ALT 19, alkaline phosphatase 91, total protein 7.5, albumin 3.4. Angiotensin-converting enzyme (HIEN) level is pending. INR is 1.01. Anticoagulation workup is pending. Lyme disease screening is pending. IMAGING STUDIES: CT of the head without contrast on 10/26/[address] Chest x-ray on 10/26/2016 showed linear plate-like atelectasis versus fibrosis of left base. Otherwise no active disease. MRA of the brain without contrast on 10/26/2016 showed no evidence of cerebrovascular stenosis, aneurysm, vessel cutoff, or other acute findings. MRI of the brain without contrast on 10/26/2016 showed no evidence of acute infarction, hemorrhage, mass, or significant white matter changes or other acute findings. There are a few punctate subcortical frontal and parietal white matter, hyperintense foci, which are nonspecific. Carotid Doppler 10/27/2016 showed no stenosis on the right or the left. CT of the chest without contrast on 10/28/2016 showed atelectatic changes in the lingula. Atelectatic changes in the lower lobes. DISCHARGE MEDICATIONS: - artificial tears two drops right eye every 1 hours as needed - prednisone 60 mg by mouth daily for 1 week, then 40 mg by mouth daily for 3 days, then 30 mg by mouth daily for 3 days, then 20 mg by mouth daily for 3 days - valacyclovir 1 gram by mouth three times a day for 7 days - ProAir two 16 mcg inhalation every 4 hours as needed - aspirin 325 mg by mouth daily - budesonide 0.5 mg inhalation twice a day - cetirizine 10 mg by mouth daily - donepezil 5 mg by mouth daily - Prozac 20 mg by mouth daily - Flovent two puff inhalation twice a day - gemfibrozil 600 mg by mouth twice a day - Ritalin 20 mg by mouth daily - modafinil 100 mg by mouth daily - Singulair 10 mg by mouth at bedtime - Xolair 500 mg subcutaneous monthly - omeprazole 20 mg by mouth daily - Lyrica 75 mg by mouth twice a day - Seroquel 200 mg by mouth at bedtime - Advair Diskus one puff inhalation twice a day - Spiriva inhalation daily - trazodone 200 mg by mouth at bedtime - valsartan 160 mg by mouth daily DISCHARGE INSTRUCTIONS: Discontinue line. Discharge home. Activity as tolerated. Diet: Low-salt diet as tolerated. Patient is recommended to avoid driving or machinery until re-evaluated by the medical provider and wait until patient has resolution of her neurologic symptoms. Patient is recommended to finish a course of tapering steroids and valacyclovir treatment. Patient should followup in her primary care provider in 1-2 weeks. Patient recommended to followup with the neurologist in 2-3 weeks. DISCHARGE CONDITION: Stable. DISCHARGE TIME: Greater than 30 minutes.
--- NOTE | 2016-10-30 12:27 | CR ---
DATE OF CONSULTATION: 10/27/2016 REASON FOR CONSULTATION: Weakness of the left side of her face with upper extremity paresthesias and weakness. HISTORY OF PRESENT ILLNESS: The patient is a 51-year-old female with past medical history significant for extremely severe asthma as well as systemic lupus who presents to [facility] with the subjective complaint that the left side of her face feels that it was drooping. The patient was also experiencing a week's worth of paresthesias and weakness in her left hand and arm. The patient has been diagnosed with carpal tunnel syndrome involving the left arm. Upon examination, the patient actually has complete paralysis of the right side of the face, though she subjectively felt it was affecting her left. The patient has difficulty closing her right eyelid. She cannot raise her eyebrows and she cannot move the side of her mouth. Her speech is minimally dysarthric due to the facial weakness. The patient denies any new paresthesias of her hands and states actually this has been ongoing for several months to years. The patient denies any weakness on her legs at the present time. The patient already had an MRI of the brain which was negative for any acute ischemic event as well as an MR angiogram of the head which was negative as well as a head CT which was negative. Her erythrocyte sedimentation rate (ESR) and C-reactive protein (CRP) were elevated. The patient is on aspirin 325 mg as well as Lipitor 40 mg. The patient does complain of paresthesias of the right face when compared to the left due to cranial nerve VII and possibly V involvement, I would recommend checking a Lyme antibody as well as ruling out sarcoidosis. The patient has not had any noted hilar lymphadenopathy. While in the hospital, the patient was evaluated by speech and swallow therapy who did notice the weakness of the right eye and recommended to wear an eye patch. She has not formally been diagnosed with Weathers's palsy up till now. PAST MEDICAL HISTORY: 1. Hypertension. 2. Lupus. 3. Fibromyalgia. 4. Hyperlipidemia. 5. Depression. 6. Insomnia. 7. Severe asthma. 8. Attention deficit hyperactivity disorder. 9. Chronic obstructive pulmonary disease (COPD). CURRENT MEDICATIONS: - albuterol four times a day - aspirin 325 mg by mouth daily - budesonide 0.5 mg inhaled twice a day - cetirizine 10 mg by mouth daily - donepezil 5 mg by mouth daily - fluoxetine 20 mg by mouth daily - fluticasone 125 mcg puff inhalation twice a day - gemfibrozil 600 mg by mouth twice a day - Provigil 100 mg by mouth daily - Singulair 10 mg by mouth at bedtime - omalizumab 150 mg every month - omeprazole 20 mg by mouth daily - Lyrica 75 mg by mouth daily - Seroquel 200 mg by mouth daily - Advair 500/50 mcg inhaled one puff twice a day - Spiriva 18 mcg inhalation once daily - trazodone 100 mg by mouth daily - valsartan 160 mg by mouth daily - Dulera ALLERGIES: CODEINE, severe itching and rash. SOCIAL HISTORY: The patient continues to use tobacco. Denies use of alcohol or illicit drugs. FAMILY HISTORY: Noncontributory. PAST SURGICAL HISTORY: 1. Tubal ligation. 2. Cholecystectomy. 3. Heart surgery for hole in the heart associated with rheumatic fever. REVIEW OF SYSTEMS: 14-point review of systems was obtained and is negative except as per history of present illness (HPI). PHYSICAL EXAMINATION: Blood pressure 128/69, pulse rate 67, respiratory rate is 18, temperature is 97.6 degrees Fahrenheit, and oxygenation is 93% on room air. The patient is alert and oriented to person, place and time. Speech, language and comprehension are intact. Very minimal dysarthria is noted at times due to the patient's facial weakness. The patient has normal extraocular movements without nystagmus. Palate elevates symmetrically. Tongue is midline. However, the patient does have significant lower motor neuron weakness of the right face. She can minimally close or eyelid. She cannot raise her eyebrow. She can minimally move the corner of her right mouth. Hearing is subjectively equal to finger rub. The patient denies any change in taste or hearing. She denies hyperacusis. There is no pronator drift. Strength is 5/5 including deltoids, biceps, triceps, handgrip, iliopsoas, quadriceps, anterior tibialis. The patient has positive Tinel's sign at both wrists, left worse than right. Deep tendon reflexes are 2 throughout. Babinski signs are absent. Sensory is intact to light touch in all four extremities with subjectively decreased light touch crossing the midline on the right V1-V2 distribution. Gait deferred. ASSESSMENT: 1. Weathers's palsy of the right face. It is quite common for patients who have Weathers's palsy to subjectively feel that the contralateral face is affected, though in actuality the other side of the face is the weaker side. This was why the patient initially stated that she had left facial weakness when in actuality she has near-complete right facial weakness. 2. Paresthesias of the upper extremities with history of bilateral carpal tunnel syndrome, likely worsening symptoms. PLAN: 1. Start prednisone 60 mg daily for seven days followed by taper of prednisone 40 mg for three days, 20 mg for three days, 10 mg for three days, and then stop. 2. Can consider valacyclovir treatment. 3. Start wearing the eye patch without any tape or gauze in between the eye patch and eye in the affected right eye every night until eyelid closure is normal. 4. Start using Lacri-Lube in the right eye nocturnally. 5. Use saline eye drops generously throughout the day, several drops every hour as needed for dry eye. 6. Recommend complete outpatient ophthalmologic evaluation for routine eye health maintenance due to Weathers's palsy and inability to close the right eye. 7. Recommend outpatient EMG nerve conduction study for ongoing paresthesias and worsening carpal tunnel symptoms. 8. The patient can follow in the [facility] upon discharge.
[2016-11-01 14:14] LABS: PROTEIN C ANTIGEN 76 % (60-150); PROTEIN S ANTIGEN FREE 87 % (57-157); PROTEIN S ANTIGEN TOTAL 145 % (60-150); SJOGREN'S ANTI SS-A <0.2 AI (0.0-0.9); SJOGREN'S ANTI SS-B <0.2 AI (0.0-0.9)
[2016-11-03 00:06] LABS: Lyme Disease IgG/IgM Antibodie <0.91 ISR (0.00-0.90); Lyme Disease IgM Ab Quantitati <0.80 index (0.00-0.79)
== END 2016-10-28 15:27 | disposition home or self-care (01) | DRG 74 ==
LOC: M ED 14:14 → M ED INP 20:46 → M ICU 10-27 03:18
PROVIDERS: ADMIT Internal Medicine; ATTEND Internal Medicine
DX: G51.0 Bell's palsy (principal); J44.9 Chronic obstructive pulmonary disease, unspecified; M79.7 Fibromyalgia; F41.9 Anxiety disorder, unspecified; G25.81 Restless legs syndrome; Z79.899 Other long term (current) drug therapy; Z79.82 Long term (current) use of aspirin; I10 Essential (primary) hypertension; E78.5 Hyperlipidemia, unspecified; F32.9 Major depressive disorder, single episode, unspecified; G47.00 Insomnia, unspecified; F90.9 Attention-deficit hyperactivity disorder, unspecified type; M32.10 Systemic lupus erythematosus, organ or system involvement unspecified; F17.200 Nicotine dependence, unspecified, uncomplicated; Z88.5 Allergy status to narcotic agent

== ENCOUNTER → 2017-03-01 | Outpatient (REF) | payer OTHER ==
[~2017-03-01] MED LIST changes: +AKWASOL OD; +ALBU83IN INH; +ASPI325T24 PO; +Artificial Tears Op Oint OD; +BUDE0.5S6 INH; +CINN500C9 PO; +DONE5TAB17 PO; +EPIP0.3I2 INJ; +OMEP20CA3 PO; +PRED10TA2 PO; +RITA20CA PO; +SERO200T PO; +TRAZ-136 PO; +VALA1TAB2 PO
== END ==
LOC: M LAB REF 13:32
PROVIDERS: ATTEND Internal Medicine Pulmonary Disease
DX: J45.50 Severe persistent asthma, uncomplicated (principal)

== ENCOUNTER 2017-05-04 13:06 | Emergency (ER) | payer OTHER, MEDICAID ==
[2017-05-04 15:24] LABS: KETONE, URINE AUTO RFX NEGATIVE (NEGATIVE); MUCUS, URINE RFX SMALL (NEGATIVE); NITRITE, URINE AUTO RFX NEGATIVE (NEGATIVE); RBC, URINE AUTO RFX 1 /HPF (0-3); SPECIFIC GRAVITY UR AUTO RFX 1.027 (1.002-1.035); SQUAM EPITHELIAL CELL UR AURFX 5 /HPF (0-6)
[2017-05-04 15:25] LABS: LEUKOCYTE ESTERASE UR AUTO RFX 2+ (NEGATIVE); WBC, URINE AUTO RFX 11 /HPF (0-3)
== END 2017-05-04 16:10 | disposition home or self-care (01) ==
LOC: M ED 13:06
DX: N95.2 Postmenopausal atrophic vaginitis (principal); L28.0 Lichen simplex chronicus; E11.9 Type 2 diabetes mellitus without complications; I10 Essential (primary) hypertension; R51 Headache; K21.9 Gastro-esophageal reflux disease without esophagitis; F43.10 Post-traumatic stress disorder, unspecified; F90.9 Attention-deficit hyperactivity disorder, unspecified type; Z79.82 Long term (current) use of aspirin; Z79.899 Other long term (current) drug therapy; Z88.5 Allergy status to narcotic agent
CPT/HCPCS: 81001

== ENCOUNTER → 2017-05-31 | Outpatient (REF) | payer OTHER, MEDICAID | LOC: M LAB REF 13:13 | DX: R30.0 Dysuria (principal) ==

== ENCOUNTER 2017-06-21 19:03 | Emergency (ER) | payer OTHER, MEDICAID ==
[2017-06-21 23:24] LABS: BASO % 0.4 % (0.0-1.0); EOS # 0.6 10^3/uL (0.0-0.50); EOS % 7.4 % (0.0-3.0); HEMATOCRIT 33.6 % (36.0-47.0); HEMOGLOBIN 12.1 g/dl (12.0-15.5); IMMATURE GRANULOCYTE % 0.2 % (0-3.0); LYMPH # 3.3 10^3/uL (1.5-4.5); LYMPH % 39.5 % (24.0-44.0); MEAN CORPUSCULAR HEMOGLOBIN 29.7 pg (27.0-33.0); MEAN CORPUSCULAR VOLUME 82.4 fl (80.0-96.0); MONO # 0.6 10^3/uL (0.0-0.8); MONO % 6.7 % (0.0-5.0); NEUTROPHILS # 3.8 10^3/uL (1.8-7.7); NEUTROPHILS % 45.8 % (36.0-66.0); PLATELET COUNT, AUTOMATED 197 10^3/uL (150-450); RED BLOOD COUNT 4.08 10^6/uL (4.00-5.40); RED CELL DISTRIBUTION WIDTH 12.8 % (11.5-14.5); WHITE BLOOD COUNT 8.3 10^3/uL (4.0-10.0)
[2017-06-21 23:50] LABS: ANION GAP 5 MEQ/L (8-16); BLOOD UREA NITROGEN 12 MG/DL (7-18); CALCIUM LEVEL 7.8 MG/DL (8.5-10.1); CARBON DIOXIDE LEVEL 30 MEQ/L (21-32); CHLORIDE LEVEL 106 MEQ/L (98-107); CREATININE FOR GFR 0.85 MG/DL (0.55-1.30); GLOMERULAR FILTRATION RATE > 60.0 (>51); GLUCOSE, FASTING 138 MG/DL (70-100); POTASSIUM SERUM 3.6 MEQ/L (3.5-5.1); SODIUM LEVEL 141 MEQ/L (136-145)
== END 2017-06-22 00:34 | disposition home or self-care (01) ==
LOC: M ED 06-22 00:34
DX: M79.604 Pain in right leg (principal); E11.9 Type 2 diabetes mellitus without complications; I10 Essential (primary) hypertension; E78.00 Pure hypercholesterolemia, unspecified; J44.9 Chronic obstructive pulmonary disease, unspecified; K21.9 Gastro-esophageal reflux disease without esophagitis; M41.9 Scoliosis, unspecified; F03.90 Unspecified dementia, unspecified severity, without behavioral disturbance, psychotic disturbance, mood disturbance, and anxiety; F41.9 Anxiety disorder, unspecified; F33.9 Major depressive disorder, recurrent, unspecified; F43.10 Post-traumatic stress disorder, unspecified
CPT/HCPCS: 93971

== ENCOUNTER → 2017-08-02 | Outpatient (CLI) | payer OTHER, MEDICAID ==
[2017-08-02 14:28] LABS: BASO % 0.3 % (0.0-1.0); EOS # 0.2 10^3/uL (0.0-0.50); EOS % 1.7 % (0.0-3.0); HEMATOCRIT 37.6 % (36.0-47.0); HEMOGLOBIN 12.4 g/dl (12.0-15.5); IMMATURE GRANULOCYTE % 0.4 % (0-3.0); LYMPH # 3.7 10^3/uL (1.5-4.5); MEAN CORPUSCULAR HEMOGLOBIN 28.6 pg (27.0-33.0); MEAN CORPUSCULAR VOLUME 86.6 fl (80.0-96.0); MONO # 0.7 10^3/uL (0.0-0.8); MONO % 6.9 % (0.0-5.0); NEUTROPHILS # 5.3 10^3/uL (1.8-7.7); NEUTROPHILS % 53.7 % (36.0-66.0); PLATELET COUNT, AUTOMATED 201 10^3/uL (150-450); RED BLOOD COUNT 4.34 10^6/uL (4.00-5.40); RED CELL DISTRIBUTION WIDTH 12.8 % (11.5-14.5); WHITE BLOOD COUNT 9.9 10^3/uL (4.0-10.0)
[2017-08-02 14:44] LABS: ALBUMIN 3.8 GM/DL (3.2-5.2); ALKALINE PHOSPHATASE 133 U/L (45-117); ALT/SGPT 19 U/L (12-78); ANION GAP 5 MEQ/L (8-16); AST/SGOT 12 U/L (7-37); BILIRUBIN,TOTAL 0.1 MG/DL (0.2-1.0); BLOOD UREA NITROGEN 13 MG/DL (7-18); CALCIUM LEVEL 8.6 MG/DL (8.5-10.1); CARBON DIOXIDE LEVEL 30 MEQ/L (21-32); CHLORIDE LEVEL 106 MEQ/L (98-107); CHOLESTEROL LEVEL 181 MG/DL (<200); CHOLESTEROL RISK RATIO 4.113 (<5); CREATININE FOR GFR 0.82 MG/DL (0.55-1.30); FREE T4 0.73 NG/DL (0.76-1.46); GLOMERULAR FILTRATION RATE > 60.0 (>51); GLUCOSE, FASTING 90 MG/DL (70-100); HDL CHOLESTEROL 44 MG/DL (>40); LDL CHOLESTEROL 89.8 MG/DL (<100); NON-HDL-C 137 MG/DL; POTASSIUM SERUM 3.8 MEQ/L (3.5-5.1); SODIUM LEVEL 141 MEQ/L (136-145); THYROID STIMULATING HORMONE 0.813 uIU/ML (0.358-3.740); TRIGLYCERIDES LEVEL 236 MG/DL (<150)
== END ==
LOC: M SMT 10:24
DX: E78.5 Hyperlipidemia, unspecified (principal); J44.9 Chronic obstructive pulmonary disease, unspecified

== ENCOUNTER → 2017-10-11 | Outpatient (CLI) | payer MEDICAID | LOC: M SMT 13:32 | DX: J45.51 Severe persistent asthma with (acute) exacerbation (principal) | CPT/HCPCS: 71046 ==

== ENCOUNTER 2017-10-17 08:40 | Outpatient (CLI) | payer MEDICAID ==
[2017-10-17] MEDS: OMALIZUMAB 150 MG (XOLAIR) VIAL (J2357) SC (10:37)
== END 2017-10-17 11:00 | disposition home or self-care (01) ==
LOC: M INFU 08:40
DX: J45.50 Severe persistent asthma, uncomplicated (principal); Z88.5 Allergy status to narcotic agent; Z79.82 Long term (current) use of aspirin; Z79.899 Other long term (current) drug therapy
CPT/HCPCS: J2357

== ENCOUNTER 2017-11-14 13:17 | Outpatient (CLI) | payer MEDICAID ==
[2017-11-14] MEDS: OMALIZUMAB 150 MG (XOLAIR) VIAL (J2357) SC (14:30)
== END 2017-11-14 15:10 | disposition home or self-care (01) ==
LOC: M INFU 13:17
DX: J45.50 Severe persistent asthma, uncomplicated (principal); Z88.5 Allergy status to narcotic agent; Z79.899 Other long term (current) drug therapy
CPT/HCPCS: J2357

== ENCOUNTER 2017-12-25 14:26 | Outpatient (CLI) | payer MEDICAID ==
[2017-12-25] MEDS: OMALIZUMAB 150 MG (XOLAIR) VIAL (J2357) SC (15:00)
== END 2017-12-25 15:45 | disposition home or self-care (01) ==
LOC: M INFU 14:26
DX: J45.50 Severe persistent asthma, uncomplicated (principal); Z88.5 Allergy status to narcotic agent; Z79.82 Long term (current) use of aspirin; Z79.899 Other long term (current) drug therapy
CPT/HCPCS: J2357

== ENCOUNTER → 2018-01-09 | Outpatient (CLI) | payer MEDICAID ==
[2018-01-09 18:22] LABS: ESTIMATED AVERAGE GLUCOSE 134 MG/DL (60-110); HEMOGLOBIN A1c 6.3 %
[2018-01-09 18:27] LABS: ALBUMIN 3.6 GM/DL (3.2-5.2); ALKALINE PHOSPHATASE 127 U/L (45-117); ALT/SGPT 28 U/L (12-78); ANION GAP 7 MEQ/L (8-16); AST/SGOT 18 U/L (7-37); BILIRUBIN,TOTAL 0.3 MG/DL (0.2-1.0); BLOOD UREA NITROGEN 16 MG/DL (7-18); CALCIUM LEVEL 8.8 MG/DL (8.5-10.1); CARBON DIOXIDE LEVEL 30 MEQ/L (21-32); CHLORIDE LEVEL 104 MEQ/L (98-107); CHOLESTEROL LEVEL 243 MG/DL (<200); CREATININE FOR GFR 0.82 MG/DL (0.55-1.30); GLOMERULAR FILTRATION RATE > 60.0 (>51); GLUCOSE, FASTING 133 MG/DL (70-100); HDL CHOLESTEROL 27 MG/DL (>40); MAGNESIUM LEVEL 2.1 MG/DL (1.8-2.4); NON-HDL-C 216 MG/DL; POTASSIUM SERUM 4.2 MEQ/L (3.5-5.1); PTH INTACT 46.6 PG/ML (18.5-88.0); SODIUM LEVEL 141 MEQ/L (136-145); TOTAL 25(OH) VITAMIN D 13.7 NG/ML (30.0-100.0); TOTAL PROTEIN 7.6 GM/DL (6.4-8.2); TRIGLYCERIDES LEVEL 1198 MG/DL (<150)
[2018-01-09 18:52] LABS: BASO % 0.5 % (0.0-1.0); EOS # 0.4 10^3/uL (0.0-0.50); EOS % 4.7 % (0.0-3.0); HEMATOCRIT 38.2 % (36.0-47.0); HEMOGLOBIN 12.3 g/dl (12.0-15.5); IMMATURE GRANULOCYTE % 0.3 % (0-3.0); LYMPH # 2.9 10^3/uL (1.5-4.5); LYMPH % 38.2 % (24.0-44.0); MEAN CORPUSCULAR HEMOGLOBIN 28.3 pg (27.0-33.0); MEAN CORPUSCULAR HGB CONC 32.2 g/dl (32.0-36.5); MEAN CORPUSCULAR VOLUME 87.8 fl (80.0-96.0); MONO # 0.6 10^3/uL (0.0-0.8); MONO % 7.4 % (0.0-5.0); NEUTROPHILS # 3.8 10^3/uL (1.8-7.7); NEUTROPHILS % 48.9 % (36.0-66.0); PLATELET COUNT, AUTOMATED 186 10^3/uL (150-450); RED BLOOD COUNT 4.35 10^6/uL (4.00-5.40); RED CELL DISTRIBUTION WIDTH 12.6 % (11.5-14.5); WHITE BLOOD COUNT 7.7 10^3/uL (4.0-10.0)
== END ==
LOC: M SMT 10:19
DX: I10 Essential (primary) hypertension (principal); E11.9 Type 2 diabetes mellitus without complications; E78.5 Hyperlipidemia, unspecified; E55.9 Vitamin D deficiency, unspecified
CPT/HCPCS: 83735

== ENCOUNTER → 2018-01-29 | Outpatient (CLI) | payer MEDICAID | LOC: M SMT 13:00 | DX: J45.51 Severe persistent asthma with (acute) exacerbation (principal) | CPT/HCPCS: 71046 ==

== ENCOUNTER → 2018-02-14 | Outpatient (CLI) | payer MEDICAID ==
[2018-02-14 18:19] LABS: ALBUMIN 3.9 GM/DL (3.2-5.2); ALBUMIN/GLOBULIN RATIO 0.98 (1.00-1.93); ALKALINE PHOSPHATASE 102 U/L (45-117); ALT/SGPT 28 U/L (12-78); ANION GAP 5 MEQ/L (8-16); AST/SGOT 21 U/L (7-37); BASO % 0.5 % (0.0-1.0); BILIRUBIN,TOTAL 0.3 MG/DL (0.2-1.0); BLOOD UREA NITROGEN 16 MG/DL (7-18); C REACTIVE PROTEIN QUANTITATIV < 0.30 MG/DL (0.00-0.30); CALCIUM LEVEL 8.7 MG/DL (8.5-10.1); CARBON DIOXIDE LEVEL 29 MEQ/L (21-32); CHLORIDE LEVEL 105 MEQ/L (98-107); CREATININE FOR GFR 0.89 MG/DL (0.55-1.30); EOS # 0.3 10^3/uL (0.0-0.50); EOS % 5.5 % (0.0-3.0); GLOMERULAR FILTRATION RATE > 60.0 (>51); GLUCOSE, FASTING 147 MG/DL (70-100); HEMATOCRIT 37.5 % (36.0-47.0); HEMOGLOBIN 12.3 g/dl (12.0-15.5); IMMATURE GRANULOCYTE % 0.2 % (0-3.0); LYMPH # 2.7 10^3/uL (1.5-4.5); LYMPH % 45.4 % (24.0-44.0); MEAN CORPUSCULAR HEMOGLOBIN 28.3 pg (27.0-33.0); MEAN CORPUSCULAR HGB CONC 32.8 g/dl (32.0-36.5); MEAN CORPUSCULAR VOLUME 86.4 fl (80.0-96.0); MONO # 0.4 10^3/uL (0.0-0.8); MONO % 6.6 % (0.0-5.0); NEUTROPHILS # 2.5 10^3/uL (1.8-7.7); NEUTROPHILS % 41.8 % (36.0-66.0); PLATELET COUNT, AUTOMATED 194 10^3/uL (150-450); RED BLOOD COUNT 4.34 10^6/uL (4.00-5.40); RED CELL DISTRIBUTION WIDTH 12.7 % (11.5-14.5); SODIUM LEVEL 139 MEQ/L (136-145); TOTAL PROTEIN 7.9 GM/DL (6.4-8.2)
[2018-02-14 19:52] LABS: ERYTHROCYTE SEDIMENTATION RATE 41 mm/hr (0-30)
[2018-02-17 00:11] LABS: ANTI DOUBLE STRAND-DNA AB 4 IU/mL (0-9); ANTINUCLEAR ANTIBODIES DIRECT Positive (Negative); RNP ANTIBODIES 4.5 AI (0.0-0.9); SJOGREN'S ANTI SS-A <0.2 AI (0.0-0.9); SJOGREN'S ANTI SS-B <0.2 AI (0.0-0.9)
== END ==
LOC: M SMT 13:25
DX: M32.9 Systemic lupus erythematosus, unspecified (principal)
CPT/HCPCS: 80053

== ENCOUNTER 2018-02-19 14:56 | Outpatient (CLI) | payer MEDICAID ==
[2018-02-19] MEDS: OMALIZUMAB 150 MG (XOLAIR) VIAL (J2357) SC (16:41)
== END 2018-02-19 17:15 | disposition home or self-care (01) ==
LOC: M INFU 14:56
DX: J45.909 Unspecified asthma, uncomplicated (principal); Z79.899 Other long term (current) drug therapy; Z79.82 Long term (current) use of aspirin; Z88.5 Allergy status to narcotic agent
CPT/HCPCS: J2357

== ENCOUNTER 2018-03-05 03:20 | Emergency (ER) | payer MEDICAID ==
[~2018-03-05] VITALS: Ht 162.6 cm; Wt 90.9 kg
[~2018-03-05 03:20] MED LIST changes: +AMBI10TA PO; +ASPI-222 PO; -ASPI325T24 PO; +ASPI325T25 PO; -ASPI325T28 PO; -DONE5TAB17 PO; +DONE5TAB64 PO; +FLUC100T; -GEMF600T PO; +GEMF600T5 PO; +NAPR-885 PO; -NAPR500T3 PO; -TRAZ-136 PO; +TRAZ-163 PO
[2018-03-05] MEDS ORDERED: NAPROXEN 250 MG TAB PO ONE (04:45)
[2018-03-05] MEDS ORDERED: PERCOCET 5MG/325MG TAB PO ONE (04:45)
[2018-03-05] MEDS ORDERED: METHOCARBAMOL 750 MG TAB PO ONE (04:45)
[2018-03-05] MEDS ORDERED: ROBA500T PO (05:51)
[2018-03-05] MEDS ORDERED: PERC5TAB12 PO (05:51)
[2018-03-05] MEDS ORDERED: NAPR-885 PO (05:51)
[2018-03-05] MEDS ORDERED: OXYCODONE/APAP 5MG/325MG(BULK FOR ED) 1 TABLET PO ONE (06:00)
[2018-03-05 06:02] VITALS: BP 140/75
--- NOTE | 2018-03-05 08:41 | REP ---
Clinical: Trauma with lower back pain. Technique: Axial noncontrast images from T12 through mid sacrum with coronal and sagittal re-formations. Comparison: 09/29/2016. Findings: The vertebral bodies including posterior elements and spinous processes are intact and there is no evidence for acute fracture / compression injury or subluxation. Very minimal anterolisthesis at the L4-5 level of approximately 2 mm is again identified with associated facet arthropathy consistent with chronic changes and similar to 2017. Facet arthropathy and minimal disc space narrowing along with partially calcified posterior ligamentum also noted at the L5-S1 level. No further significant degenerative changes noted. The bilateral neural foramen appear patent. The spinal canal is patent and normal. Evidence for chronic S1 spina bifida. Impression: 1. Mild degenerative changes involving the L4-5 and L5-S1 levels similar to prior examination. 2. No evidence for acute fracture / compression injury or acute subluxation. Electronically Signed by Bossman Beltran MD 03/05/2018 08:33 A
== END 2018-03-05 06:02 | disposition home or self-care (01) ==
LOC: M ED 03:20
DX: M54.5 Low back pain (principal)

== ENCOUNTER 2018-03-19 12:31 | Outpatient (CLI) | payer OTHER ==
[~2018-03-19] VITALS: Ht 164.5 cm; Wt 90.9 kg
[~2018-03-19 12:31] MED LIST changes: -GABA600T PO; +GABA600T4 PO; +PERC5TAB12 PO; +ROBA500T PO
[2018-03-19 12:55] VITALS: BP 140/81
[2018-03-19] MEDS ORDERED: OMALIZUMAB 150 MG (XOLAIR) VIAL (J2357) SC ONE (15:00)
[2018-03-19 15:15] VITALS: BP 139/88
== END 2018-03-19 15:15 | disposition home or self-care (01) ==
LOC: M INFU 12:31
PROVIDERS: ATTEND Internal Medicine Pulmonary Disease
DX: J45.909 Unspecified asthma, uncomplicated (principal); Z79.899 Other long term (current) drug therapy; Z88.5 Allergy status to narcotic agent
CPT/HCPCS: 96372; J2357

== ENCOUNTER 2018-04-16 15:02 | Outpatient (CLI) | payer OTHER ==
[~2018-04-16] VITALS: Ht 164.5 cm; Wt 90.9 kg
[2018-04-16 15:05] VITALS: BP 125/63
[2018-04-16] MEDS ORDERED: OMALIZUMAB 150 MG (XOLAIR) VIAL (J2357) SC ONE (15:15)
[2018-04-16 16:30] VITALS: BP 133/75
== END 2018-04-16 16:30 | disposition home or self-care (01) ==
LOC: M INFU 15:02
PROVIDERS: ATTEND Internal Medicine Pulmonary Disease
DX: J45.909 Unspecified asthma, uncomplicated (principal); J30.9 Allergic rhinitis, unspecified; Z88.5 Allergy status to narcotic agent; Z79.899 Other long term (current) drug therapy
CPT/HCPCS: 96372; J2357

== ENCOUNTER → 2018-05-02 | Outpatient (CLI) | payer OTHER ==
[2018-05-02 14:08] LABS: BASO % 0.6 % (0.0-1.0); EOS # 0.3 10^3/uL (0.0-0.50); EOS % 5.8 % (0.0-3.0); HEMATOCRIT 35.7 % (36.0-47.0); HEMOGLOBIN 12.1 g/dl (12.0-15.5); LYMPH # 2.1 10^3/uL (1.5-4.5); LYMPH % 41.5 % (24.0-44.0); MEAN CORPUSCULAR HEMOGLOBIN 28.1 pg (27.0-33.0); MEAN CORPUSCULAR HGB CONC 33.9 g/dl (32.0-36.5); MONO # 0.3 10^3/uL (0.0-0.8); MONO % 6.8 % (0.0-5.0); NEUTROPHILS # 2.3 10^3/uL (1.8-7.7); NEUTROPHILS % 45.1 % (36.0-66.0); PLATELET COUNT, AUTOMATED 181 10^3/uL (150-450)
[2018-05-02 14:19] LABS: ALBUMIN 3.6 GM/DL (3.2-5.2); ALT/SGPT 28 U/L (12-78); BILIRUBIN,TOTAL 0.3 MG/DL (0.2-1.0); BLOOD UREA NITROGEN 12 MG/DL (7-18); CALCIUM LEVEL 8.7 MG/DL (8.5-10.1); CARBON DIOXIDE LEVEL 30 MEQ/L (21-32); CHLORIDE LEVEL 105 MEQ/L (98-107); CHOLESTEROL LEVEL 131 MG/DL (<200); CK-MB VALUE MASS < 1.0 NG/ML (<3.6); CPK CREATINE PHOSPHOKINASE 122 U/L (26-192); CREATININE FOR GFR 0.76 MG/DL (0.55-1.30); GLOMERULAR FILTRATION RATE > 60.0 (>51); GLUCOSE, FASTING 119 MG/DL (70-100); HDL CHOLESTEROL 37 MG/DL (>40); LDL CHOLESTEROL 43 MG/DL (<100); MB/CK RELATIVE INDEX 0.82 (< OR =4); NON-HDL-C 94 MG/DL; POTASSIUM SERUM 4.1 MEQ/L (3.5-5.1); SODIUM LEVEL 141 MEQ/L (136-145); THYROID STIMULATING HORMONE 0.361 uIU/ML (0.358-3.740); TOTAL PROTEIN 7.8 GM/DL (6.4-8.2); TRIGLYCERIDES LEVEL 257 MG/DL (<150)
[2018-05-02 14:21] LABS: TOTAL 25(OH) VITAMIN D 61.4 NG/ML (30.0-100.0)
[2018-05-02 14:33] LABS: CREATININE, URINE 99.6 MG/DL; MAU/CREAT RATIO 105.4 MCG/MG (0.0-30.0)
[2018-05-02 14:41] LABS: HEMOGLOBIN A1c 6.3 %
== END ==
LOC: M SMT 10:13
PROVIDERS: ATTEND Nurse Practitioner Family
DX: E11.9 Type 2 diabetes mellitus without complications (principal); E78.5 Hyperlipidemia, unspecified; I10 Essential (primary) hypertension; E55.9 Vitamin D deficiency, unspecified

== ENCOUNTER 2018-05-14 15:08 | Outpatient (CLI) | payer OTHER ==
[~2018-05-14] VITALS: Ht 162.6 cm; Wt 90.9 kg
[~2018-05-14 15:08] MED LIST changes: +OMALIZUMAB 150 MG (XOLAIR) VIAL (J2357) SC ONE
[2018-05-14 15:15] VITALS: BP 127/77
[2018-05-14 16:00] VITALS: BP 138/74
== END 2018-05-14 16:00 | disposition home or self-care (01) ==
LOC: M INFU 15:08
PROVIDERS: ATTEND Internal Medicine Pulmonary Disease
DX: J45.50 Severe persistent asthma, uncomplicated (principal); Z88.5 Allergy status to narcotic agent; Z79.899 Other long term (current) drug therapy
CPT/HCPCS: 96372; J2357

== ENCOUNTER → 2018-06-05 | Outpatient (CLI) | payer OTHER ==
[~2018-06-05] MED LIST changes: -OMALIZUMAB 150 MG (XOLAIR) VIAL (J2357) SC ONE
[2018-06-05 14:33] LABS: CK-MB VALUE MASS < 1.0 NG/ML (<3.6); CPK CREATINE PHOSPHOKINASE 73 U/L (26-192); MB/CK RELATIVE INDEX 1.37 (< OR =4); TROPONIN I < 0.02 NG/ML (< 0.10)
== END ==
LOC: M SMT 13:21
PROVIDERS: ATTEND Nurse Practitioner Family
DX: R07.89 Other chest pain (principal)

== ENCOUNTER → 2018-06-06 | Outpatient (CLI) | payer OTHER ==
--- NOTE | 2018-06-06 12:06 | REP ---
CERVICAL SPINE, EIGHT VIEWS: HISTORY: Cervicalgia. The cervical spine is visualized from the C1-2 to C6-7 level in the lateral radiographs. There is no acute fracture or subluxation. The C4-5 and C5-6 intervertebral discs are decreased in height consistent with disc degeneration. Osteophytes are present on C5 and C6. The neural foramina are patient. Impression: Degenerative change as described above. Electronically Signed by Pan Aquino MD 06/06/2018 12:12 P
== END ==
LOC: M RAD 09:14
PROVIDERS: ATTEND Nurse Practitioner Family
DX: M50.322 Other cervical disc degeneration at C5-C6 level (principal); M50.321 Other cervical disc degeneration at C4-C5 level

== ENCOUNTER 2018-07-13 11:48 | Outpatient (CLI) | payer OTHER ==
[~2018-07-13] VITALS: Ht 162.6 cm; Wt 90.9 kg
[~2018-07-13 11:48] MED LIST changes: +ASPI-255 PO; -ASPI325T25 PO; -VALS1TAB47 PO; +VALS1TAB67 PO
[2018-07-13 12:00] VITALS: BP 111/63
[2018-07-13] MEDS ORDERED: OMALIZUMAB 150 MG (XOLAIR) VIAL (J2357) SC ONE (13:00)
[2018-07-13 13:40] VITALS: BP 160/78
== END 2018-07-13 13:40 | disposition home or self-care (01) ==
LOC: M INFU 11:48
PROVIDERS: ATTEND Internal Medicine Pulmonary Disease
DX: J45.909 Unspecified asthma, uncomplicated (principal); Z88.5 Allergy status to narcotic agent; Z79.899 Other long term (current) drug therapy
CPT/HCPCS: 96372; J2357

== ENCOUNTER → 2018-08-17 | Outpatient (CLI) | payer OTHER ==
[2018-08-17 17:26] LABS: ALBUMIN 3.7 GM/DL (3.2-5.2); ALT/SGPT 30 U/L (12-78); BILIRUBIN,TOTAL 0.3 MG/DL (0.2-1.0); BLOOD UREA NITROGEN 14 MG/DL (7-18); CALCIUM LEVEL 8.8 MG/DL (8.5-10.1); CARBON DIOXIDE LEVEL 31 MEQ/L (21-32); CHLORIDE LEVEL 106 MEQ/L (98-107); CHOLESTEROL LEVEL 125 MG/DL (<200); CHOLESTEROL RISK RATIO 3.676 (<5); CK-MB VALUE MASS < 1.0 NG/ML (<3.6); CPK CREATINE PHOSPHOKINASE 159 U/L (26-192); GLOMERULAR FILTRATION RATE > 60.0 (>51); GLUCOSE, FASTING 108 MG/DL (70-100); HDL CHOLESTEROL 34 MG/DL (>40); LDL CHOLESTEROL 20 MG/DL (<100); MB/CK RELATIVE INDEX 0.63 (< OR =4); NON-HDL-C 91 MG/DL; POTASSIUM SERUM 4.7 MEQ/L (3.5-5.1); SODIUM LEVEL 141 MEQ/L (136-145); TOTAL PROTEIN 7.9 GM/DL (6.4-8.2); TRIGLYCERIDES LEVEL 355 MG/DL (<150)
[2018-08-17 17:28] LABS: BASO # 0.1 10^3/uL (0.0-0.2); BASO % 1.1 % (0.0-1.0); EOS # 0.4 10^3/uL (0.0-0.50); EOS % 6.7 % (0.0-3.0); HEMATOCRIT 36.2 % (36.0-47.0); HEMOGLOBIN 11.9 g/dl (12.0-15.5); LYMPH # 2.3 10^3/uL (1.5-4.5); LYMPH % 41.2 % (24.0-44.0); MEAN CORPUSCULAR HEMOGLOBIN 28.6 pg (27.0-33.0); MEAN CORPUSCULAR HGB CONC 32.9 g/dl (32.0-36.5); MONO # 0.4 10^3/uL (0.0-0.8); MONO % 7.6 % (0.0-5.0); NEUTROPHILS # 2.4 10^3/uL (1.8-7.7); NEUTROPHILS % 43.2 % (36.0-66.0); PLATELET COUNT, AUTOMATED 180 10^3/uL (150-450); RED BLOOD COUNT 4.16 10^6/uL (4.00-5.40); WHITE BLOOD COUNT 5.5 10^3/uL (4.0-10.0)
[2018-08-17 17:56] LABS: HEMOGLOBIN A1c 5.6 %
[2018-08-17 18:11] LABS: MALB URINE SIEMENS 49.8 MG/L; MAU/CREAT RATIO 24.1 MCG/MG (0.0-30.0)
== END ==
LOC: M SMT 13:44
PROVIDERS: ATTEND Nurse Practitioner Family
DX: I10 Essential (primary) hypertension (principal); E11.9 Type 2 diabetes mellitus without complications; E55.9 Vitamin D deficiency, unspecified; E78.5 Hyperlipidemia, unspecified

== ENCOUNTER → 2018-08-27 | Outpatient (REF) | payer OTHER ==
[2018-08-29 14:48] LABS: HPV HYBRID CAPTURE II Negative (Negative)
== END ==
LOC: M SFHCPLAZ 13:29
PROVIDERS: ATTEND Nurse Practitioner Family
DX: Z12.4 Encounter for screening for malignant neoplasm of cervix (principal)
CPT/HCPCS: 87624; G0123

== ENCOUNTER → 2018-08-30 | Outpatient (REF) | payer OTHER ==
[2018-08-30 17:04] LABS: APPEARANCE, URINE HAZY (CLEAR); BACTERIA, URINE AUTO 1+ (NEGATIVE); BILIRUBIN, URINE AUTO NEGATIVE (NEGATIVE); BLOOD, URINE BLOOD NEGATIVE (NEGATIVE); COLOR, URINE YELLOW (YELLOW); GLUCOSE, URINE (UA) AUTO NEGATIVE (NEGATIVE); KETONE, URINE AUTO NEGATIVE (NEGATIVE); LEUKOCYTE ESTERASE, URINE AUTO 1+ (NEGATIVE); MUCUS, URINE SMALL (NEGATIVE); NITRITE, URINE AUTO NEGATIVE (NEGATIVE); PROTEIN, URINE AUTO 1+ mg/dL (NEGATIVE); RBC, URINE AUTO 3 /HPF (0-3); SPECIFIC GRAVITY URINE AUTO 1.026 (1.002-1.035); SQUAMOUS EPITHELIAL CELL UR AU 3 /HPF (0-6); TRANSITIONAL EPITHELIAL AUTO 1 /HPF; UROBILINOGEN, URINE AUTO 0.2 mg/dL (0.0-2.0); WBC, URINE AUTO 9 /HPF (0-3)
[2018-08-30 17:20] LABS: COMPLEMENT C3 122 MG/DL (90-180); COMPLEMENT C4 27 MG/DL (10-40)
[2018-08-30 17:35] LABS: TOTAL PROTEIN,RANDOM URINE 63.3 MG/DL (0.0-12.0)
[2018-09-06 08:06] LABS: ANA (HEP2) Positive (.); ANTI DS-DNA AB <1:10 titer (.); RNP ANTIBODY 5.5 AI (0.0-0.9); SMITHS ANTIBODY 1.4 AI (0.0-0.9); SSA SJOGRENS A <0.2 AI (0.0-0.9); SSB SJOGRENS B <0.2 AI (0.0-0.9)
== END ==
LOC: M SFHCPLAZ 14:37
PROVIDERS: ATTEND Internal Medicine Rheumatology
DX: M32.9 Systemic lupus erythematosus, unspecified (principal)

== ENCOUNTER 2018-09-06 22:16 | Emergency (ER) | payer OTHER ==
[~2018-09-06] VITALS: Ht 162.6 cm; Wt 90.9 kg
[~2018-09-06 22:16] MED LIST changes: -ASPI-222 PO; +ASPI-527 PO; +OMEP1CAP73 PO; -OMEP20CA3 PO; -TRAZ-163 PO; +TRAZ-257 PO; -VALA1TAB2 PO; +VALA1TAB64 PO
[2018-09-06 22:51] LABS: BASO % 0.4 % (0.0-1.0); EOS # 0.3 10^3/uL (0.0-0.50); EOS % 4.2 % (0.0-3.0); HEMOGLOBIN 12.3 g/dl (12.0-15.5); LYMPH % 38.1 % (24.0-44.0); MEAN CORPUSCULAR HEMOGLOBIN 28.1 pg (27.0-33.0); MEAN CORPUSCULAR HGB CONC 33.2 g/dl (32.0-36.5); MEAN CORPUSCULAR VOLUME 84.7 fl (80.0-96.0); MONO # 0.6 10^3/uL (0.0-0.8); MONO % 7.4 % (0.0-5.0); NEUTROPHILS # 3.9 10^3/uL (1.8-7.7); NEUTROPHILS % 49.8 % (36.0-66.0); PLATELET COUNT, AUTOMATED 179 10^3/uL (150-450); RED BLOOD COUNT 4.37 10^6/uL (4.00-5.40); WHITE BLOOD COUNT 7.8 10^3/uL (4.0-10.0)
[2018-09-06 23:01] LABS: INR 1.11
[2018-09-06] MEDS ORDERED: ASPIRIN 325 MG TAB PO ONE (23:15)
[2018-09-06] MEDS ORDERED: GI COCKTAIL 50ML BTL(HYOSCYAMINE/MAALOX/LIDOCAINE VISCOUS)(1:3:1) PO ONE (23:15)
[2018-09-06 23:33] LABS: ALBUMIN 3.9 GM/DL (3.2-5.2); ALT/SGPT 25 U/L (12-78); BILIRUBIN,TOTAL 0.3 MG/DL (0.2-1.0); BLOOD UREA NITROGEN 14 MG/DL (7-18); CALCIUM LEVEL 9.4 MG/DL (8.5-10.1); CARBON DIOXIDE LEVEL 31 MEQ/L (21-32); CHLORIDE LEVEL 106 MEQ/L (98-107); CK-MB VALUE MASS < 1.0 NG/ML (<3.6); CPK CREATINE PHOSPHOKINASE 157 U/L (26-192); CREATININE FOR GFR 0.92 MG/DL (0.55-1.30); GLOMERULAR FILTRATION RATE > 60.0 (>51); GLUCOSE, FASTING 92 MG/DL (70-100); LIPASE 175 U/L (73-393); MB/CK RELATIVE INDEX 0.64 (< OR =4); POTASSIUM SERUM 3.5 MEQ/L (3.5-5.1); SODIUM LEVEL 140 MEQ/L (136-145); TOTAL PROTEIN 8.6 GM/DL (6.4-8.2); TROPONIN I < 0.02 NG/ML (< 0.10)
[2018-09-07 00:15] VITALS: BP 122/70
--- NOTE | 2018-09-07 05:44 | ECGEPIP ---
[facility] - ED Test Date: 2018-09-06 Pat Name: ZAHIDA RICHMOND Department: Room: - Gender: Female Assistant Banquet Manager: : [id number] Requested By: KIERAN Rg Order Number: [id number] Reading MD: Valentin Humphrey Measurements Intervals [place] Rate: 75 P: 53 WY: 165 QRS: 77 QRSD: 106 T: 75 QT: 420 QTc: 471 Interpretive Statements SINUS RHYTHM BENIGN EARLY REPOLARIZATION SIMILAR TO 10/26/16 Electronically Signed on 09-07-2018 5:44:38 EDT by Valentin Humphrey
--- NOTE | 2018-09-07 07:46 | REP ---
PA and lateral chest: Comparisons 01/19/2018. The lung bingham are clear. There is chronic mild effacement of the left costophrenic angle, unchanged The cardiac size is normal. The fany, mediastinum, and skeletal structures are unremarkable. Impression: Chronic mild effacement left costophrenic angle. Otherwise, negative PA and lateral chest. There is no interval change. Electronically Signed by Gary Johansen MD 09/07/2018 07:37 A
[2018-11-23] MEDS ORDERED: SIMV40TA20 PO (14:40)
== END 2018-09-07 00:36 | disposition left against medical advice (07) ==
LOC: M ED 22:16
DX: R07.9 Chest pain, unspecified (principal); R06.02 Shortness of breath; I10 Essential (primary) hypertension; J44.9 Chronic obstructive pulmonary disease, unspecified; K21.9 Gastro-esophageal reflux disease without esophagitis; Z79.899 Other long term (current) drug therapy; Z79.82 Long term (current) use of aspirin; Z88.5 Allergy status to narcotic agent

== ENCOUNTER 2018-09-10 12:41 | Outpatient (CLI) | payer OTHER ==
[~2018-09-10] VITALS: Ht 164.5 cm; Wt 89.1 kg
[~2018-09-10 12:41] MED LIST changes: +ASPI-222 PO; -ASPI-527 PO; -OMEP1CAP73 PO; +OMEP20CA3 PO; +TRAZ-163 PO; -TRAZ-257 PO; +VALA1TAB2 PO; -VALA1TAB64 PO
[2018-09-10 13:00] VITALS: BP 145/83
[2018-09-10] MEDS ORDERED: OMALIZUMAB 150 MG (XOLAIR) VIAL (J2357) SC ONE (14:00)
== END 2018-09-10 14:20 | disposition home or self-care (01) ==
LOC: M INFU 12:41
PROVIDERS: ATTEND Internal Medicine Pulmonary Disease
DX: J45.50 Severe persistent asthma, uncomplicated (principal); Z88.5 Allergy status to narcotic agent; Z79.899 Other long term (current) drug therapy
CPT/HCPCS: 96372; J2357

== ENCOUNTER → 2018-10-30 | Outpatient (CLI) | payer OTHER ==
[~2018-10-30] MED LIST changes: -OMEP20CA3 PO; +OMEP20CA4 PO
[2018-10-30 16:09] LABS: BASO % 0.5 % (0.0-1.0); EOS # 0.4 10^3/uL (0.0-0.50); EOS % 4.9 % (0.0-3.0); HEMATOCRIT 42.7 % (36.0-47.0); HEMOGLOBIN 13.7 g/dl (12.0-15.5); LYMPH # 2.8 10^3/uL (1.5-4.5); LYMPH % 37.2 % (24.0-44.0); MEAN CORPUSCULAR HEMOGLOBIN 28.2 pg (27.0-33.0); MEAN CORPUSCULAR HGB CONC 32.1 g/dl (32.0-36.5); MEAN CORPUSCULAR VOLUME 87.9 fl (80.0-96.0); MONO # 0.5 10^3/uL (0.0-0.8); MONO % 6.5 % (0.0-5.0); NEUTROPHILS # 3.8 10^3/uL (1.8-7.7); NEUTROPHILS % 50.8 % (36.0-66.0); PLATELET COUNT, AUTOMATED 193 10^3/uL (150-450); RED BLOOD COUNT 4.86 10^6/uL (4.00-5.40); WHITE BLOOD COUNT 7.4 10^3/uL (4.0-10.0)
[2018-10-30 16:26] LABS: BILIRUBIN,TOTAL 0.3 MG/DL (0.2-1.0); CALCIUM LEVEL 9.6 MG/DL (8.5-10.1); CREATININE FOR GFR 1.03 MG/DL (0.55-1.30); GLOMERULAR FILTRATION RATE 59.4 (>51); TOTAL PROTEIN 8.9 GM/DL (6.4-8.2)
== END ==
LOC: M LAB 15:36
PROVIDERS: ATTEND Internal Medicine Rheumatology
DX: M32.9 Systemic lupus erythematosus, unspecified (principal)

== ENCOUNTER 2018-11-23 14:19 | Outpatient (CLI) | payer OTHER ==
[~2018-11-23] VITALS: Ht 162.6 cm; Wt 88.6 kg
[~2018-11-23 14:19] MED LIST changes: -ASPI-222 PO; +ASPI-527 PO
[2018-11-23 14:25] VITALS: BP 136/83
[2018-11-23] MEDS ORDERED: SIMV40TA2 PO (14:40)
[2018-11-23] MEDS ORDERED: ASPI81TA85 PO (14:40)
[2018-11-23] MEDS ORDERED: PLAQ200T4 PO (14:40)
[2018-11-23] MEDS ORDERED: OMALIZUMAB 150 MG (XOLAIR) VIAL (J2357 PER 5MG) SC ONE (15:00)
[2018-11-23 15:13] VITALS: BP 142/68
== END 2018-11-23 15:15 | disposition home or self-care (01) ==
LOC: M INFU 14:19
PROVIDERS: ATTEND Internal Medicine Pulmonary Disease
DX: J45.50 Severe persistent asthma, uncomplicated (principal)
CPT/HCPCS: 96372; J2357

== ENCOUNTER 2018-12-06 11:40 | Emergency (ER) | payer OTHER ==
[~2018-12-06] VITALS: Ht 162.6 cm; Wt 90.0 kg
[~2018-12-06 11:40] MED LIST changes: +ASPI81TA85 PO; +PLAQ200T4 PO; +SIMV40TA2 PO
[2018-12-06 11:41] VITALS: BP 132/84
[2018-12-06] MEDS ORDERED: BACITRACIN OINT 30GM TOP PRN (12:45)
== END 2018-12-06 13:19 | disposition home or self-care (01) ==
LOC: M ED 11:40
DX: T20.13XA Burn of first degree of chin, initial encounter (principal); X19.XXXA Contact with other heat and hot substances, initial encounter; Y92.89 Other specified places as the place of occurrence of the external cause; I10 Essential (primary) hypertension; J44.9 Chronic obstructive pulmonary disease, unspecified; J45.909 Unspecified asthma, uncomplicated; K21.9 Gastro-esophageal reflux disease without esophagitis; M32.9 Systemic lupus erythematosus, unspecified; M79.7 Fibromyalgia; E78.5 Hyperlipidemia, unspecified

== ENCOUNTER 2018-12-09 12:24 | Emergency (ER) | payer OTHER ==
[~2018-12-09] VITALS: Ht 154.9 cm; Wt 90.3 kg
[2018-12-09] MEDS ORDERED: methylPREDNISolone INJ 125 MG/2 ML VIAL (J2930) IM ONE (15:00)
[2018-12-09] MEDS ORDERED: ACETAMINOPHEN TAB 650MG DOSE (2X325MG) PO ONE (15:00)
[2018-12-09] MEDS ORDERED: diphenhydrAMINE 25 MG CAP PO ONE (15:00)
[2018-12-09] MEDS ORDERED: MUPIROCIN 2% OINT 22 GM TUBE TOP ONE (15:45)
[2018-12-09] MEDS ORDERED: DOXY-350 PO (15:48)
[2018-12-09 15:56] VITALS: BP 124/74
== END 2018-12-09 16:00 | disposition home or self-care (01) ==
LOC: M ED 12:24
DX: L01.00 Impetigo, unspecified (principal); L53.9 Erythematous condition, unspecified; I10 Essential (primary) hypertension; J44.9 Chronic obstructive pulmonary disease, unspecified; J45.909 Unspecified asthma, uncomplicated; E78.5 Hyperlipidemia, unspecified; M79.7 Fibromyalgia; M32.9 Systemic lupus erythematosus, unspecified; Z79.899 Other long term (current) drug therapy; Z79.82 Long term (current) use of aspirin; Z88.5 Allergy status to narcotic agent
CPT/HCPCS: 96372; 99283; J2930

== ENCOUNTER → 2018-12-18 | Outpatient (CLI) | payer OTHER ==
[~2018-12-18] MED LIST changes: +DOXY-350 PO
[2018-12-18 17:13] LABS: BASO % 0.6 % (0.0-1.0); EOS # 0.4 10^3/uL (0.0-0.5); HEMATOCRIT 38.6 % (36.0-47.0); HEMOGLOBIN 12.5 g/dl (12.0-15.5); LYMPH # 2.4 10^3/uL (1.5-5.0); LYMPH % 33.3 % (24.0-44.0); MEAN CORPUSCULAR HEMOGLOBIN 28.3 pg (27.0-33.0); MEAN CORPUSCULAR HGB CONC 32.4 g/dl (32.0-36.5); MEAN CORPUSCULAR VOLUME 87.5 fl (80.0-96.0); MONO # 0.6 10^3/uL (0.0-0.8); MONO % 8.6 % (0.0-5.0); NEUTROPHILS # 3.7 10^3/uL (1.5-8.5); NEUTROPHILS % 52.2 % (36.0-66.0); PLATELET COUNT, AUTOMATED 193 10^3/uL (150-450); RED BLOOD COUNT 4.41 10^6/uL (4.00-5.40); WHITE BLOOD COUNT 7.2 10^3/uL (4.0-10.0)
[2018-12-18 17:21] LABS: ALBUMIN 3.8 GM/DL (3.2-5.2); ALT/SGPT 26 U/L (12-78); BILIRUBIN,TOTAL 0.3 MG/DL (0.2-1.0); BLOOD UREA NITROGEN 14 MG/DL (7-18); CALCIUM LEVEL 8.8 MG/DL (8.5-10.1); CARBON DIOXIDE LEVEL 31 MEQ/L (21-32); CHLORIDE LEVEL 104 MEQ/L (98-107); CHOLESTEROL LEVEL 196 MG/DL (<200); CHOLESTEROL RISK RATIO 5.297 (<5); CREATININE FOR GFR 0.91 MG/DL (0.55-1.30); FREE T4 0.81 NG/DL (0.76-1.46); GLOMERULAR FILTRATION RATE > 60.0 (>51); GLUCOSE, FASTING 109 MG/DL (70-100); HDL CHOLESTEROL 37 MG/DL (>40); MAGNESIUM LEVEL 2.1 MG/DL (1.8-2.4); NON-HDL-C 159 MG/DL; POTASSIUM SERUM 4.2 MEQ/L (3.5-5.1); SODIUM LEVEL 141 MEQ/L (136-145); THYROID STIMULATING HORMONE 0.483 uIU/ML (0.358-3.740); TOTAL PROTEIN 8.3 GM/DL (6.4-8.2); TRIGLYCERIDES LEVEL 649 MG/DL (<150)
[2018-12-18 17:23] LABS: TOTAL 25(OH) VITAMIN D 26.5 NG/ML (30.0-100.0)
== END ==
LOC: M SMT 14:26
PROVIDERS: ATTEND Nurse Practitioner Family
DX: E78.5 Hyperlipidemia, unspecified (principal); I10 Essential (primary) hypertension; E11.9 Type 2 diabetes mellitus without complications; E55.9 Vitamin D deficiency, unspecified

== ENCOUNTER 2018-12-28 12:01 | Outpatient (CLI) | payer OTHER ==
[~2018-12-28] VITALS: Ht 162.6 cm; Wt 64.7 kg
[2018-12-28 12:05] VITALS: BP 131/75
[2018-12-28] MEDS ORDERED: OMALIZUMAB 150MG 1ML SYRINGE (XOLAIR) (J2357 PER 5MG) SQ ONE (13:00)
[2018-12-28 13:39] VITALS: BP 135/72
[2018-12-28] MEDS ORDERED: OMALIZUMAB 150 MG (XOLAIR) VIAL (J2357 PER 5MG) SC ONE (14:00)
== END 2018-12-28 13:45 | disposition home or self-care (01) ==
LOC: M INFU 12:01
PROVIDERS: ATTEND Internal Medicine Pulmonary Disease
DX: J45.50 Severe persistent asthma, uncomplicated (principal); Z79.899 Other long term (current) drug therapy; Z79.82 Long term (current) use of aspirin
CPT/HCPCS: 96372; J2357

== ENCOUNTER 2019-01-29 12:31 | Outpatient (CLI) | payer OTHER ==
[~2019-01-29] VITALS: Ht 164.5 cm; Wt 88.5 kg
[2019-01-29 12:45] VITALS: BP 128/71
[2019-01-29] MEDS ORDERED: OMALIZUMAB 150MG 1ML SYRINGE (XOLAIR) (J2357 PER 5MG) SQ ONE (13:00)
[2019-01-29 13:50] VITALS: BP 127/70
== END 2019-01-29 13:50 | disposition home or self-care (01) ==
LOC: M INFU 12:31
PROVIDERS: ATTEND Internal Medicine Pulmonary Disease
DX: J45.50 Severe persistent asthma, uncomplicated (principal); Z88.5 Allergy status to narcotic agent; Z79.899 Other long term (current) drug therapy
CPT/HCPCS: 96372; J2357

== ENCOUNTER → 2019-02-13 | Outpatient (CLI) | payer OTHER ==
[~2019-02-13] MED LIST changes: -SIMV40TA2 PO; +SIMV40TA20 PO
[2019-02-13 15:52] LABS: ALBUMIN 3.4 GM/DL (3.2-5.2); ALT/SGPT 30 U/L (12-78); AMYLASE 39 U/L (25-115); BILIRUBIN,TOTAL 0.3 MG/DL (0.2-1.0); BLOOD UREA NITROGEN 15 MG/DL (7-18); CALCIUM LEVEL 8.9 MG/DL (8.5-10.1); CARBON DIOXIDE LEVEL 31 MEQ/L (21-32); CHLORIDE LEVEL 106 MEQ/L (98-107); CREATININE FOR GFR 0.84 MG/DL (0.55-1.30); GLOMERULAR FILTRATION RATE > 60.0 (>51); GLUCOSE, FASTING 113 MG/DL (70-100); LIPASE 149 U/L (73-393); POTASSIUM SERUM 4.2 MEQ/L (3.5-5.1); SODIUM LEVEL 143 MEQ/L (136-145); TOTAL PROTEIN 7.7 GM/DL (6.4-8.2)
[2019-02-13 16:09] LABS: BASO % 0.6 % (0.0-1.0); EOS # 0.3 10^3/uL (0.0-0.5); EOS % 5.1 % (0.0-3.0); HEMATOCRIT 36.8 % (36.0-47.0); HEMOGLOBIN 11.8 g/dl (12.0-15.5); LYMPH # 1.9 10^3/uL (1.5-5.0); LYMPH % 36.1 % (24.0-44.0); MEAN CORPUSCULAR HEMOGLOBIN 28.3 pg (27.0-33.0); MEAN CORPUSCULAR HGB CONC 32.1 g/dl (32.0-36.5); MEAN CORPUSCULAR VOLUME 88.2 fl (80.0-96.0); MONO # 0.4 10^3/uL (0.0-0.8); NEUTROPHILS # 2.6 10^3/uL (1.5-8.5); NEUTROPHILS % 49.8 % (36.0-66.0); PLATELET COUNT, AUTOMATED 189 10^3/uL (150-450); RED BLOOD COUNT 4.17 10^6/uL (4.00-5.40); WHITE BLOOD COUNT 5.1 10^3/uL (4.0-10.0)
== END ==
LOC: M PLALAB 09:44
PROVIDERS: ATTEND Physician Assistant Medical
DX: R10.10 Upper abdominal pain, unspecified (principal)

== ENCOUNTER → 2019-02-14 | Outpatient (REF) | payer OTHER | LOC: M SFHCPLAZ 18:36 | PROVIDERS: ATTEND Physician Assistant Medical | DX: R19.5 Other fecal abnormalities (principal) ==

== ENCOUNTER 2019-02-26 12:09 | Outpatient (CLI) | payer OTHER ==
[~2019-02-26] VITALS: Ht 162.6 cm; Wt 88.6 kg
[~2019-02-26 12:09] MED LIST changes: +OMEP-172 PO; -OMEP20CA4 PO; -VALA1TAB2 PO; +VALA1TAB64 PO
[2019-02-26 12:19] VITALS: BP 131/70
[2019-02-26] MEDS ORDERED: OMALIZUMAB 150MG 1ML SYRINGE (XOLAIR) (J2357 PER 5MG) SQ ONE (12:30)
[2019-02-26 13:40] VITALS: BP 163/75
== END 2019-02-26 13:40 | disposition home or self-care (01) ==
LOC: M INFU 12:09
PROVIDERS: ATTEND Internal Medicine Pulmonary Disease
DX: J45.50 Severe persistent asthma, uncomplicated (principal); Z88.5 Allergy status to narcotic agent
CPT/HCPCS: 96372; J2357

== ENCOUNTER 2019-04-01 13:15 | Outpatient (CLI) | payer OTHER ==
[~2019-04-01] VITALS: Ht 162.6 cm; Wt 88.6 kg
[~2019-04-01 13:15] MED LIST changes: -OMEP-172 PO; +OMEP1CAP73 PO; -TRAZ-163 PO; +TRAZ-257 PO
[2019-04-01 13:20] VITALS: BP 127/67
[2019-04-01] MEDS ORDERED: OMALIZUMAB 150MG 1ML SYRINGE (XOLAIR) (J2357 PER 5MG) SQ ONE (14:00)
[2019-04-01 14:45] VITALS: BP 138/84
[2019-04-04] MEDS ORDERED: BUDE0.5S6 INH (13:22)
[2019-04-04] MEDS ORDERED: FLUT22IN INH (13:22)
[2019-04-04] MEDS ORDERED: ATOR40TA75 PO (13:22)
[2019-04-04] MEDS ORDERED: LOSA50TA88 PO (13:22)
[2019-04-04] MEDS ORDERED: ROPI2TAB24 PO (13:22)
[2019-04-04] MEDS ORDERED: FLUT1BLS6 INH (13:22)
[2019-04-04] MEDS ORDERED: OMEP-221 PO (13:22)
[2019-04-04] MEDS ORDERED: VENL37.598 PO (13:22)
== END 2019-04-01 14:45 | disposition home or self-care (01) ==
LOC: M INFU 13:15
PROVIDERS: ATTEND Internal Medicine Pulmonary Disease
DX: J45.50 Severe persistent asthma, uncomplicated (principal); Z88.5 Allergy status to narcotic agent
CPT/HCPCS: 96372; J2357

== ENCOUNTER → 2019-04-02 | Outpatient (CLI) | payer SELFPAY ==
[~2019-04-02] MED LIST changes: +ATOR40TA75 PO; +FLUT1BLS6 INH; +LOSA50TA88 PO; +OMEP-221 PO; +ROPI2TAB24 PO; +VENL37.598 PO
[2019-04-02 18:28] LABS: BASO % 0.5 % (0.0-1.0); EOS # 0.4 10^3/uL (0.0-0.5); EOS % 6.2 % (0.0-3.0); HEMATOCRIT 37.3 % (36.0-47.0); LYMPH # 2.2 10^3/uL (1.5-5.0); LYMPH % 34.2 % (24.0-44.0); MEAN CORPUSCULAR HGB CONC 32.2 g/dl (32.0-36.5); MEAN CORPUSCULAR VOLUME 87.1 fl (80.0-96.0); MONO # 0.4 10^3/uL (0.0-0.8); NEUTROPHILS # 3.3 10^3/uL (1.5-8.5); NEUTROPHILS % 52.8 % (36.0-66.0); PLATELET COUNT, AUTOMATED 176 10^3/uL (150-450); RED BLOOD COUNT 4.28 10^6/uL (4.00-5.40); WHITE BLOOD COUNT 6.3 10^3/uL (4.0-10.0)
[2019-04-02 18:39] LABS: APPEARANCE, URINE HAZY (CLEAR); BACTERIA, URINE AUTO NEGATIVE (NEGATIVE); BILIRUBIN, URINE AUTO NEGATIVE (NEGATIVE); BLOOD, URINE BLOOD NEGATIVE (NEGATIVE); COLOR, URINE YELLOW (YELLOW); GLUCOSE, URINE (UA) AUTO NEGATIVE (NEGATIVE); KETONE, URINE AUTO NEGATIVE (NEGATIVE); LEUKOCYTE ESTERASE, URINE AUTO 1+ (NEGATIVE); MUCUS, URINE SMALL (NEGATIVE); NITRITE, URINE AUTO NEGATIVE (NEGATIVE); PROTEIN, URINE AUTO 1+ mg/dL (NEGATIVE); RBC, URINE AUTO 5 /HPF (0-3); SPECIFIC GRAVITY URINE AUTO 1.026 (1.002-1.035); SQUAMOUS EPITHELIAL CELL UR AU 7 /HPF (0-6); UROBILINOGEN, URINE AUTO 0.2 mg/dL (0.0-2.0); WBC, URINE AUTO 9 /HPF (0-3)
[2019-04-02 18:40] LABS: INR 1.1; PROTHROMBIN TIME 13.9 SECONDS (11.8-14.0)
[2019-04-02 18:41] LABS: PARTIAL THROMBOPLASTIN TIME 31.6 SECONDS (25.0-38.4)
[2019-04-02 18:49] LABS: TOTAL PROTEIN,RANDOM URINE 39.8 MG/DL (0.0-12.0)
[2019-04-02 18:51] LABS: ALT/SGPT 32 U/L (12-78); BILIRUBIN,TOTAL 0.3 MG/DL (0.2-1.0); BLOOD UREA NITROGEN 16 MG/DL (7-18); C REACTIVE PROTEIN QUANTITATIV < 0.30 MG/DL (0.00-0.30); CALCIUM LEVEL 8.9 MG/DL (8.5-10.1); CARBON DIOXIDE LEVEL 32 MEQ/L (21-32); CHLORIDE LEVEL 108 MEQ/L (98-107); COMPLEMENT C3 132 MG/DL (90-180); COMPLEMENT C4 24 MG/DL (10-40); CREATININE FOR GFR 0.76 MG/DL (0.55-1.30); GLOMERULAR FILTRATION RATE > 60.0 (>51); GLUCOSE, FASTING 97 MG/DL (70-100); POTASSIUM SERUM 3.8 MEQ/L (3.5-5.1); SODIUM LEVEL 143 MEQ/L (136-145); TOTAL PROTEIN 7.9 GM/DL (6.4-8.2)
[2019-04-02 19:57] LABS: ERYTHROCYTE SEDIMENTATION RATE 37 mm/hr (0-30)
== END ==
LOC: M LAB 16:29
PROVIDERS: ATTEND Internal Medicine
DX: R58 Hemorrhage, not elsewhere classified (principal); M32.9 Systemic lupus erythematosus, unspecified

== ENCOUNTER → 2019-04-22 | Outpatient (CLI) | payer OTHER ==
[~2019-04-22] MED LIST changes: +VALA1TAB5 PO; -VALA1TAB64 PO
[2019-04-22 18:14] LABS: ALBUMIN 3.8 GM/DL (3.2-5.2); ALT/SGPT 29 U/L (12-78); BILIRUBIN,TOTAL 0.3 MG/DL (0.2-1.0); BLOOD UREA NITROGEN 15 MG/DL (7-18); CARBON DIOXIDE LEVEL 31 MEQ/L (21-32); CHLORIDE LEVEL 107 MEQ/L (98-107); CHOLESTEROL LEVEL 124 MG/DL (<200); CHOLESTEROL RISK RATIO 3.179 (<5); CREATININE FOR GFR 0.76 MG/DL (0.55-1.30); FREE T4 0.96 NG/DL (0.76-1.46); GLOMERULAR FILTRATION RATE > 60.0 (>51); GLUCOSE, FASTING 110 MG/DL (70-100); HDL CHOLESTEROL 39 MG/DL (>40); LDL CHOLESTEROL 53 MG/DL (<100); NON-HDL-C 85 MG/DL; SODIUM LEVEL 143 MEQ/L (136-145); THYROID STIMULATING HORMONE 0.778 uIU/ML (0.358-3.740); TOTAL 25(OH) VITAMIN D 45.2 NG/ML (30.0-100.0); TOTAL PROTEIN 7.9 GM/DL (6.4-8.2); TRIGLYCERIDES LEVEL 159 MG/DL (<150)
== END ==
LOC: M PLALAB 13:54
PROVIDERS: ATTEND Nurse Practitioner Family
DX: E55.9 Vitamin D deficiency, unspecified (principal); E78.5 Hyperlipidemia, unspecified; E11.9 Type 2 diabetes mellitus without complications

== ENCOUNTER → 2019-04-22 | Outpatient (CLI) | payer OTHER, SELFPAY ==
--- NOTE | 2019-04-22 14:03 | REPVR ---
PROCEDURE INFORMATION: Exam: MR Lumbar Spine Without Contrast. Exam date and time: 04/22/2019 1:09 PM Age: 53 years old Clinical indication: Patient HX: Low back pain and siatica worse on lt side for months, nki, xrays on pacs; Additional info: Lumbar pain TECHNIQUE: Imaging protocol: Multiplanar magnetic resonance images of the lumbar spine without intravenous contrast. COMPARISON: CT Spine, lumbar w/o contrast 03/05/2018 4:47 AM FINDINGS: Vertebrae: Unremarkable. Spinal cord: Normal signal. No cord compression. L1-L2: There is minimal retrolisthesis at L1/2. There is degenerative disc disease including disc space narrowing and dessication. There is mild disc bulging. L2-L3: No significant disc disease. No significant spinal canal stenosis. No neural foraminal stenosis. L3-L4: No significant disc disease. No significant spinal canal stenosis. No neural foraminal stenosis. L4-L5: There is grade 1 anterior spondylolisthesis at L4/5. There is moderate degenerative right-sided neuroforaminal narrowing. There is facet arthropathy and ligamentum flavum hypertrophy. L5-S1: No significant disc disease. No significant spinal canal stenosis. No neural foraminal stenosis. Soft tissues: Unremarkable. IMPRESSION: Degenerative changes at L1/2 and L4/5 as described above. Minimal anterior listhesis L4/5. Asymmetric right-sided neuroforaminal narrowing at L4/5. Electronically signed by: Kolton León On 04/22/2019 14:03:17 PM
== END ==
LOC: M RAD 12:25
PROVIDERS: ATTEND Internal Medicine
DX: M54.5 Low back pain (principal)

== ENCOUNTER 2019-04-29 13:13 | Outpatient (CLI) | payer OTHER, SELFPAY ==
[~2019-04-29] VITALS: Ht 164.5 cm; Wt 88.6 kg
[2019-04-29 13:45] VITALS: BP 142/74
[2019-04-29] MEDS ORDERED: OMALIZUMAB 150MG 1ML SYRINGE (XOLAIR) (J2357 PER 5MG) SQ ONE (14:00)
== END 2019-04-29 13:45 | disposition home or self-care (01) ==
LOC: M INFU 13:13
PROVIDERS: ATTEND Internal Medicine Pulmonary Disease
DX: J45.50 Severe persistent asthma, uncomplicated (principal); Z88.5 Allergy status to narcotic agent
CPT/HCPCS: 96372; J2357

== ENCOUNTER 2019-05-23 21:30 | Emergency (ER) | payer OTHER ==
[~2019-05-23] VITALS: Ht 162.6 cm; Wt 92.0 kg
[2019-05-23 22:59] LABS: INFLUENZA A AMPLIFICATION NEGATIVE (NEGATIVE); INFLUENZA B AMPLIFICATION NEGATIVE (NEGATIVE)
[2019-05-23] MEDS ORDERED: IPRATROPIUM 0.5MG/ALBUTEROL 2.5MG INH SOL UD 3ML (DUONEB)(J7620) NEB ONE (23:15)
[2019-05-24 00:36] VITALS: BP 131/68
--- NOTE | 2019-05-24 02:58 | REP ---
Clinical: Wheezing . Comparison: 09/06/2018 . Technique: PA and lateral. Findings: The mediastinum and cardiac silhouette are normal. The lung bingham are clear and without acute consolidation, effusion, or pneumothorax. The skeletal structures are intact and normal. Impression: 1. No acute cardiopulmonary process. Electronically Signed by Bossman Beltran MD 05/24/2019 02:49 A
== END 2019-05-24 00:42 | disposition home or self-care (01) ==
LOC: M ED 21:30
DX: J45.901 Unspecified asthma with (acute) exacerbation (principal); J06.9 Acute upper respiratory infection, unspecified; B34.9 Viral infection, unspecified; E11.9 Type 2 diabetes mellitus without complications; K21.9 Gastro-esophageal reflux disease without esophagitis; M79.7 Fibromyalgia; F33.9 Major depressive disorder, recurrent, unspecified; Z88.5 Allergy status to narcotic agent; Z79.51 Long term (current) use of inhaled steroids; Z79.82 Long term (current) use of aspirin; Z79.899 Other long term (current) drug therapy

== ENCOUNTER 2019-05-27 13:15 | Outpatient (CLI) | payer OTHER ==
[~2019-05-27] VITALS: Ht 164.5 cm; Wt 207.0 kg
[2019-05-27 13:23] VITALS: BP 137/75
[2019-05-27] MEDS ORDERED: OMALIZUMAB 150MG 1ML SYRINGE (XOLAIR) (J2357 PER 5MG) SQ ONE (14:00)
[2019-05-27 14:20] VITALS: BP 136/75
== END 2019-05-27 14:20 | disposition home or self-care (01) ==
LOC: M INFU 13:15
PROVIDERS: ATTEND Internal Medicine Pulmonary Disease
DX: J45.50 Severe persistent asthma, uncomplicated (principal); Z88.5 Allergy status to narcotic agent
CPT/HCPCS: 96372; J2357

== ENCOUNTER → 2019-08-01 | Outpatient (CLI) | payer OTHER ==
[2019-08-01 13:44] LABS: APPEARANCE, URINE HAZY (CLEAR); BACTERIA, URINE AUTO NEGATIVE (NEGATIVE); BILIRUBIN, URINE AUTO NEGATIVE (NEGATIVE); BLOOD, URINE BLOOD NEGATIVE (NEGATIVE); COLOR, URINE YELLOW (YELLOW); GLUCOSE, URINE (UA) AUTO NEGATIVE (NEGATIVE); KETONE, URINE AUTO NEGATIVE (NEGATIVE); LEUKOCYTE ESTERASE, URINE AUTO 2+ (NEGATIVE); MUCUS, URINE SMALL (NEGATIVE); NITRITE, URINE AUTO NEGATIVE (NEGATIVE); PROTEIN, URINE AUTO NEGATIVE (NEGATIVE); RBC, URINE AUTO 3 /HPF (0-3); SPECIFIC GRAVITY URINE AUTO 1.025 (1.002-1.035); SQUAMOUS EPITHELIAL CELL UR AU 2 /HPF (0-6); UROBILINOGEN, URINE AUTO 0.2 mg/dL (0.0-2.0); WBC, URINE AUTO 7 /HPF (0-3)
[2019-08-01 13:45] LABS: BASO % 0.3 % (0.0-1.0); EOS # 0.4 10^3/uL (0.0-0.5); EOS % 6.6 % (0.0-3.0); HEMATOCRIT 37.5 % (36.0-47.0); HEMOGLOBIN 11.8 g/dl (12.0-15.5); LYMPH # 2.1 10^3/uL (1.5-5.0); LYMPH % 32.8 % (24.0-44.0); MEAN CORPUSCULAR HEMOGLOBIN 27.8 pg (27.0-33.0); MEAN CORPUSCULAR HGB CONC 31.5 g/dl (32.0-36.5); MEAN CORPUSCULAR VOLUME 88.2 fl (80.0-96.0); MONO # 0.5 10^3/uL (0.0-0.8); MONO % 7.1 % (0.0-5.0); NEUTROPHILS # 3.4 10^3/uL (1.5-8.5); PLATELET COUNT, AUTOMATED 156 10^3/uL (150-450); RED BLOOD COUNT 4.25 10^6/uL (4.00-5.40); WHITE BLOOD COUNT 6.4 10^3/uL (4.0-10.0)
[2019-08-01 13:56] LABS: ALBUMIN 3.4 GM/DL (3.2-5.2); ALT/SGPT 31 U/L (12-78); BILIRUBIN,TOTAL 0.2 MG/DL (0.2-1.0); BLOOD UREA NITROGEN 19 MG/DL (7-18); CALCIUM LEVEL 8.6 MG/DL (8.5-10.1); CARBON DIOXIDE LEVEL 34 MEQ/L (21-32); CHLORIDE LEVEL 107 MEQ/L (98-107); CREATININE FOR GFR 0.81 MG/DL (0.55-1.30); GLOMERULAR FILTRATION RATE > 60.0 (>51); GLUCOSE, FASTING 126 MG/DL (70-100); POTASSIUM SERUM 4.9 MEQ/L (3.5-5.1); SODIUM LEVEL 143 MEQ/L (136-145); TOTAL PROTEIN 7.3 GM/DL (6.4-8.2)
[2019-08-01 14:11] LABS: ERYTHROCYTE SEDIMENTATION RATE 34 mm/hr (0-30)
== END ==
LOC: M PLALAB 11:14
PROVIDERS: ATTEND Internal Medicine
DX: M32.9 Systemic lupus erythematosus, unspecified (principal)

== ENCOUNTER 2019-08-16 12:22 | Emergency (ER) | payer MEDICAID, OTHER ==
[~2019-08-16] VITALS: Ht 162.6 cm; Wt 92.6 kg
[2019-08-16] MEDS ORDERED: METOCLOPRAMIDE INJ 10MG/2ML VIAL (J2765 PER 1) IV ONE (13:00)
[2019-08-16] MEDS ORDERED: diphenhydrAMINE 50MG/ML VIAL (J1200) IV ONE (13:00)
[2019-08-16 13:24] LABS: HEMATOCRIT 36.9 % (36.0-47.0); HEMOGLOBIN 11.9 g/dl (12.0-15.5); MEAN CORPUSCULAR HGB CONC 32.2 g/dl (32.0-36.5); MEAN CORPUSCULAR VOLUME 86.8 fl (80.0-96.0); PLATELET COUNT, AUTOMATED 166 10^3/uL (150-450); RED BLOOD COUNT 4.25 10^6/uL (4.00-5.40); WHITE BLOOD COUNT 6.6 10^3/uL (4.0-10.0)
--- NOTE | 2019-08-16 13:52 | REPVR ---
PROCEDURE INFORMATION: Exam: CT Head Without Contrast Exam date and time: 08/16/2019 1:20 PM Age: 54 years old Clinical indication: Pain; Headache; Additional info: JAMES TECHNIQUE: Imaging protocol: Computed tomography of the head without contrast. Radiation optimization: All CT scans at this facility use at least one of these dose optimization techniques: automated exposure control; mA and/or kV adjustment per patient size (includes targeted exams where dose is matched to clinical indication); or iterative reconstruction. COMPARISON: CT Head without contrast 10/26/2016 2:47 PM FINDINGS: Brain: Normal. No hemorrhage. Unremarkable white matter. No mass effect. Ventricles: Normal. No ventriculomegaly. Bones/joints: Unremarkable. No acute fracture. Sinuses: Visualized sinuses are unremarkable. No fluid levels. Mastoid air cells: Visualized mastoid air cells are well aerated. Soft tissues: Unremarkable. IMPRESSION: No acute intracranial abnormality. Electronically signed by: Kolton León On 08/16/2019 13:52:02 PM
[2019-08-16] MEDS ORDERED: REGL10TA6 PO (14:15)
[2019-08-16 14:19] VITALS: BP 129/86
== END 2019-08-16 14:26 | disposition home or self-care (01) ==
LOC: M ED 12:22
DX: R51 Headache (principal); I51.9 Heart disease, unspecified; E11.9 Type 2 diabetes mellitus without complications; Z79.51 Long term (current) use of inhaled steroids; Z79.82 Long term (current) use of aspirin; Z79.899 Other long term (current) drug therapy; Z88.6 Allergy status to analgesic agent
CPT/HCPCS: 70450; 85027; 86140; 96374; 96375; 99284; J1200; J2765

== ENCOUNTER → 2019-08-29 | Outpatient (CLI) | payer MEDICAID, OTHER ==
[~2019-08-29] MED LIST changes: -ASPI81TA85 PO; +ASPI81TA86 PO; -CLIN150C14 PO; +CLIN150C15 PO; +REGL10TA6 PO
--- NOTE | 2019-08-29 13:53 | REPPI ---
CERVICAL SPINE SERIES: Seven views. HISTORY: Neck pain. Comparison radiographs are from June 06, 2018. FINDINGS: Lateral views done in flexion/extension and neutral position show no subluxation or instability. Vertebral body heights are preserved. There is degenerative disc narrowing and spur formation anteriorly at C5-6 unchanged from the comparison study. Mild spurring is seen at C6-7 as well anteriorly. Oblique images demonstrate intact neural foramina bilaterally at each cervical level. There is facet hypertrophy and sclerosis bilaterally visible on the AP view in the mid cervical spine. This is unchanged. Open-mouth odontoid view is unremarkable. IMPRESSION: Degenerative spondylosis changes stable from June 06, 2018 prior radiographs. Electronically Signed by Rob Mendoza MD 08/29/2019 02:59 P
== END ==
LOC: M PLAIMG 09:22
PROVIDERS: ATTEND Internal Medicine Rheumatology
DX: M47.812 Spondylosis without myelopathy or radiculopathy, cervical region (principal); M25.78 Osteophyte, vertebrae; M54.2 Cervicalgia

== ENCOUNTER → 2019-08-29 | Outpatient (REF) | payer OTHER ==
[~2019-08-29] MED LIST changes: +ASPI81TA85 PO; -ASPI81TA86 PO; +CLIN150C14 PO; -CLIN150C15 PO
[2019-08-29 11:38] LABS: BASO % 0.7 % (0.0-1.0); EOS # 0.5 10^3/uL (0.0-0.5); EOS % 8.3 % (0.0-3.0); HEMATOCRIT 36.5 % (36.0-47.0); HEMOGLOBIN 11.7 g/dl (12.0-15.5); LYMPH # 1.7 10^3/uL (1.5-5.0); LYMPH % 31.1 % (24.0-44.0); MEAN CORPUSCULAR HEMOGLOBIN 28.1 pg (27.0-33.0); MEAN CORPUSCULAR HGB CONC 32.1 g/dl (32.0-36.5); MEAN CORPUSCULAR VOLUME 87.7 fl (80.0-96.0); MONO # 0.5 10^3/uL (0.0-0.8); MONO % 9.2 % (0.0-5.0); NEUTROPHILS # 2.8 10^3/uL (1.5-8.5); NEUTROPHILS % 50.3 % (36.0-66.0); PLATELET COUNT, AUTOMATED 154 10^3/uL (150-450); RED BLOOD COUNT 4.16 10^6/uL (4.00-5.40); WHITE BLOOD COUNT 5.5 10^3/uL (4.0-10.0)
[2019-08-29 11:58] LABS: ALBUMIN 3.4 GM/DL (3.2-5.2); ALT/SGPT 38 U/L (12-78); BILIRUBIN,TOTAL 0.3 MG/DL (0.2-1.0); BLOOD UREA NITROGEN 17 MG/DL (7-18); CALCIUM LEVEL 8.6 MG/DL (8.5-10.1); CARBON DIOXIDE LEVEL 31 MEQ/L (21-32); CHLORIDE LEVEL 106 MEQ/L (98-107); CHOLESTEROL LEVEL 120 MG/DL (<200); CHOLESTEROL RISK RATIO 3.243 (<5); CREATININE FOR GFR 0.96 MG/DL (0.55-1.30); FREE T4 0.85 NG/DL (0.76-1.46); GLOMERULAR FILTRATION RATE > 60.0 (>51); GLUCOSE, FASTING 130 MG/DL (70-100); HDL CHOLESTEROL 37 MG/DL (>40); LDL CHOLESTEROL 4 MG/DL (<100); NON-HDL-C 83 MG/DL; POTASSIUM SERUM 4.3 MEQ/L (3.5-5.1); SODIUM LEVEL 142 MEQ/L (136-145); TOTAL PROTEIN 7.3 GM/DL (6.4-8.2); TRIGLYCERIDES LEVEL 393 MG/DL (<150)
[2019-08-29 12:10] LABS: HEMOGLOBIN A1c 6.2 %
== END ==
LOC: M SFHCRHEU 09:26
PROVIDERS: ATTEND Internal Medicine Rheumatology
DX: M54.2 Cervicalgia (principal)

== ENCOUNTER 2019-10-26 20:47 | Emergency (ER) | payer OTHER, MEDICAID ==
[~2019-10-26 20:47] MED LIST changes: -ASPI81TA85 PO; +ASPI81TA86 PO; +KETOROLAC 60MG 2ML VIAL As Ordered ONE; +KETOROLAC 60MG 2ML VIAL ONE
== END 2019-10-26 21:30 | disposition home or self-care (01) ==
LOC: M ED 20:47
DX: S16.1XXA Strain of muscle, fascia and tendon at neck level, initial encounter (principal); V49.40XA Driver injured in collision with unspecified motor vehicles in traffic accident, initial encounter; I10 Essential (primary) hypertension; G89.29 Other chronic pain; M32.9 Systemic lupus erythematosus, unspecified; J45.909 Unspecified asthma, uncomplicated; K21.9 Gastro-esophageal reflux disease without esophagitis; Z88.6 Allergy status to analgesic agent; Z88.5 Allergy status to narcotic agent; Z79.51 Long term (current) use of inhaled steroids; Z79.899 Other long term (current) drug therapy
CPT/HCPCS: 70450; 72125; 72128; 96374; 99284; J1885

== ENCOUNTER → 2020-01-01 | Outpatient (REF) | payer OTHER ==
[~2020-01-01] MED LIST changes: -KETOROLAC 60MG 2ML VIAL As Ordered ONE; -KETOROLAC 60MG 2ML VIAL ONE
[2020-01-01 17:28] LABS: BASO % 0.6 % (0.0-1.0); EOS # 0.9 10^3/uL (0.0-0.5); EOS % 12.1 % (0.0-3.0); HEMATOCRIT 36.9 % (36.0-47.0); HEMOGLOBIN 11.7 g/dl (12.0-15.5); LYMPH # 2.5 10^3/uL (1.5-5.0); LYMPH % 35.2 % (24.0-44.0); MEAN CORPUSCULAR HGB CONC 31.7 g/dl (32.0-36.5); MEAN CORPUSCULAR VOLUME 88.3 fl (80.0-96.0); MONO # 0.4 10^3/uL (0.0-0.8); MONO % 6.1 % (0.0-5.0); NEUTROPHILS # 3.2 10^3/uL (1.5-8.5); NEUTROPHILS % 45.7 % (36.0-66.0); PLATELET COUNT, AUTOMATED 164 10^3/uL (150-450); RED BLOOD COUNT 4.18 10^6/uL (4.00-5.40); WHITE BLOOD COUNT 7.1 10^3/uL (4.0-10.0)
[2020-01-01 17:50] LABS: ALBUMIN 3.8 GM/DL (3.2-5.2); ALT/SGPT 29 U/L (12-78); BILIRUBIN,TOTAL 0.3 MG/DL (0.2-1.0); BLOOD UREA NITROGEN 16 MG/DL (7-18); CALCIUM LEVEL 8.7 MG/DL (8.5-10.1); CARBON DIOXIDE LEVEL 29 MEQ/L (21-32); CHLORIDE LEVEL 104 MEQ/L (98-107); COMPLEMENT C3 130 MG/DL (90-180); COMPLEMENT C4 26 MG/DL (10-40); CREATININE FOR GFR 0.84 MG/DL (0.55-1.30); GLOMERULAR FILTRATION RATE > 60.0 (>51); GLUCOSE, FASTING 80 MG/DL (70-100); SODIUM LEVEL 139 MEQ/L (136-145); TOTAL PROTEIN 7.9 GM/DL (6.4-8.2)
[2020-01-02 12:04] LABS: APPEARANCE, URINE CLEAR (CLEAR); BACTERIA, URINE AUTO NEGATIVE (NEGATIVE); BILIRUBIN, URINE AUTO NEGATIVE (NEGATIVE); BLOOD, URINE BLOOD NEGATIVE (NEGATIVE); COLOR, URINE YELLOW (YELLOW); GLUCOSE, URINE (UA) AUTO NEGATIVE (NEGATIVE); KETONE, URINE AUTO NEGATIVE (NEGATIVE); LEUKOCYTE ESTERASE, URINE AUTO TRACE (NEGATIVE); MUCUS, URINE SMALL (NEGATIVE); NITRITE, URINE AUTO NEGATIVE (NEGATIVE); PROTEIN, URINE AUTO NEGATIVE (NEGATIVE); RBC, URINE AUTO 2 /HPF (0-3); SPECIFIC GRAVITY URINE AUTO 1.021 (1.002-1.035); SQUAMOUS EPITHELIAL CELL UR AU 2 /HPF (0-6); UROBILINOGEN, URINE AUTO 0.2 mg/dL (0.0-2.0); WBC, URINE AUTO 8 /HPF (0-3)
[2020-01-06 13:07] LABS: ANTI DS-DNA AB Negative (Negative)
== END ==
LOC: M SFHCRHEU 14:41
PROVIDERS: ATTEND Internal Medicine
DX: M32.9 Systemic lupus erythematosus, unspecified (principal)

== ENCOUNTER → 2020-01-20 | Outpatient (CLI) | payer OTHER ==
--- NOTE | 2020-01-22 00:44 | ECWPNPC ---
PATIENT NAME: ZAHIDA RICHMOND : 1965 GENDER: FEMALE VISIT DATE: 01/20/2020 DISCHARGE DATE: 01/20/20 1127 VISIT LOCKED DATE TIME: PHYSICIAN: JORGE OBRIEN PHYSICIAN PAGER NO: ACTIVE RESOURCE: JORGE OBRIEN REASON FOR APPOINTMENT 1. SPONDYLOSIS OF CERVICAL HISTORY OF PRESENT ILLNESS GENERAL: 54-YEAR-OLD FEMALE IN FOR INITIAL PAIN CONSULT. PATIENT HAS COMPLAINTS OF NECK PAIN. SHE DENIES HISTORY OF TRAUMA. SHE FURTHER DENIES BEING ON MEDICATIONS AND/OR RECEIVING INJECTIONS THAT HAD HELPED HER NECK PAIN IN THE PAST. SHE RATES HER PAIN CURRENTLY AT AN 8 OUT OF 10 AND DESCRIBES IT CONTINUOUS, BURNING, AND SHARP. FALL RISK SCREENING: SCREENING :TWO OR MORE FALLS WITHOUT INJURY IN THE PAST YEAR SLIPPED AND FELL IN SHOWER IN SEPTEMBER; FEW FALLS SLIPPING ON ICE DOWN STAIRS PAIN SCREENING: PATIENT HAS A COMPLAINT OF ACUTE OR CHRONIC PAIN :YES LOCATION OF PAIN:NECK, LEFT SHOULDER, RIGHT SHOULDER, UPPER BACK, OTHER: ARMS: LEFT > RIGHT INTENSITY OF PAIN (SCALE OF 1 TO 10):8 WHAT DOES YOUR PAIN FEEL LIKE:BURNING, CONTINOUS, SHARP DURATION:CONTINOUS, CONSTANT PAIN IS INCREASED BY:ACTIVITIES, PROLONGED STANDING, OTHERS SITTING UP, WALKING PAIN IS DECREASED BY:USE OF PAIN MEDICATIONS, OTHERS LAYING DOWN, HEAT, ICE, ICY HOT NURSING NOTE: - - -. PAIN CENTER INTAKE QUESTIONS: DO YOU HAVE A HISTORY OF MRSA? :NO DO YOU TAKE A BLOOD THINNERS? :NO DO YOU HAVE ANY BLEEDING DISORDERS? :NO ANY NEW NUMBNESS OR WEAKNESS IN YOUR LEGS OR ARMS? :YES NUMBNESS IN BILATERAL ARMS ANY PACEMAKER,DEFIBRILLATOR, OR DORSAL COLUMN STIMULATOR? :NO DO YOU HAVE ANY RASHES OR OPEN SORES? :NO ARE YOU ALLERGIC TO IV DYE? :NO ARE YOU DIABETIC? :YES PRE-DIABETIC, USES METFORMIN ANY NEW PROBLEMS WITH YOUR MEDICATIONS? :NO HAVE YOU RECEIVED A VACCINE IN THE PAST 30 DAYS? :NO DO YOU PLAN TO RECEIVE A VACCINE IN THE NEXT 21 DAYS? :YES IF SO WHAT VACCINE AND WHEN? FLU VACCINE - UNSURE OF WHEN DO YOU NEED ANY PRESCRIPTION? :NO DO YOU TAKE ANY IMMUNOSUPPRESSIVE MEDICATIONS? :YES HYDROXYCHLOROQUIN CURRENT MEDICATIONS TAKING ATORVASTATIN CALCIUM 40 MG TABLET TAKE 1 TABLET BY MOUTH ONCE DAILY TAKING MUPIROCIN 2 % OINTMENT 1 APPLICATION EXTERNALLY BID NEEDED TAKING HYDROXYCHLOROQUINE 200 MG 1 TAB ORALLY BID TAKING AIRDUO RESPICLICK 232/14 232-14 MCG/ACT AEROSOL POWDER BREATH ACTIVATED 1 PUFF INHALATION TWICE A DAY TAKING LOSARTAN POTASSIUM 50 MG TABLET 1 TABLET ORALLY BID TAKING OMEGA 3 1200 MG CAPSULE 1 CAPSULE ORALLY ONCE A DAY TAKING ZOLPIDEM TARTRATE 10 MG TABLET 1 TABLET AT BEDTIME NEEDED ORALLY ONCE A DAY TAKING HYDROCORTISONE ACETATE 1 % CREAM 1 APPLICATION EXTERNALLY ONCE A DAY TAKING DICLOFENAC SODIUM 1 % GEL 2 GRAMS TO AFFECTED TRANSDERMAL FOUR TIMES DAILY NEEDED TAKING FLUCONAZOLE 150 MG TABLET 1 TABLET ORALLY DAILY TAKING INCRUSE ELLIPTA 62.5 MCG/INH AEROSOL POWDER BREATH ACTIVATED 1 PUFF INHALATION ONCE A DAY TAKING DUPIXENT 300 MG/2ML SOLUTION PREFILLED SYRINGE 2 ML SUBCUTANEOUS 1 SHOT EVERY 2WEEKS TAKING ROPINIROLE HCL ER 2 MG TABLET EXTENDED RELEASE 24 HOUR 1 TABLET ORALLY ONCE A DAY AT BEDTIME TAKING SKELAXIN 800 MG TABLET 1 TABLET ORALLY BID TAKING TIZANIDINE HCL 4 MG TABLET 1 TABLET NEEDED ORALLY TWICE DAILY NEEDED TAKING VENLAFAXINE HCL ER 37.5 MG CAPSULE EXTENDED RELEASE 24 HOUR 1 CAPSULE WITH FOOD ORALLY ONCE A DAY TAKING MELOXICAM 15 MG TABLET 1 TABLET ORALLY ONCE A DAY PRN PAIN TAKING TRAZODONE HCL 100 MG TABLET 1 TABLET AT BEDTIME ORALLY ONCE A DAY TAKING ERGOCALCIFEROL 59547 UNIT CAPSULE 1 CAPSULE ORALLY WEEKLY TAKING OMEPRAZOLE 40 MG CAPSULE DELAYED RELEASE 1 CAPSULE ORALLY ONCE A DAY TAKING ZETIA 10 MG TABLET 1 TABLET ORALLY ONCE A DAY TAKING ASPIRIN ADULT LOW STRENGTH 81 MG TABLET DELAYED RELEASE 1 TABLET ORALLY ONCE A DAY TAKING ALBUTEROL 90 MCG/ACT AEROSOL SOLUTION 2 PUFFS INHALATION BID NEEDED TAKING CETIRIZINE HCL 10 MG TABLET 1 TABLET NEEDED ORALLY ONCE A DAY TAKING SINGULAIR 10 MG TABLET 1 TABLET ORALLY ONCE A DAY TAKING METFORMIN HCL ER 500 MG TABLET EXTENDED RELEASE 24 HOUR 1 TABLET WITH EVENING MEAL ORALLY ONCE A DAY NOT-TAKING SKELAXIN 800 MG TABLET 1 TABLET ORALLY TWO TIMES A DAY AFTER MEALS NOT-TAKING CYCLOBENZAPRINE HCL 5 MG TABLET 1 TABLET AT BEDTIME NEEDED ORALLY ONCE A DAY MEDICATION LIST REVIEWED AND RECONCILED WITH THE PATIENT PAST MEDICAL HISTORY FATTY LIVER RHEUMATIC FEVER AT 7 MITRAL VALVE STENOSIS -ECHO 10/[address] CORDON EF 65%. NORMAL ECHO S ANNUAL VALVE DEFECT CTD ? SLE (LUPUS) HYPERLIPIDEMIA INSOMNIA PTSD ASTHMA, SEVERE PERSISTENT- ON XOLAIR- DR. SIU POSITIONAL SLEEP APNEA AHI 6.2 HYPERTENSION DM TYPE 2 - STATES PRE-DIABETES GERD FIBROMYALGIA DJD L4-S1- CT SPINE - 02/2018 COLONOSCOPY 08/2018- HYPERPLASTIC POLYP REPEAT 08/2017 DR. FERNANDES ALLERGIES VICODIN: ITCHING - ALLERGY CODEINE PHOSPHATE (FOR ALLERGIES USE ONLY): ITCHING - ALLERGY TYLENOL: LACK OF THERAPEUTIC EFFECT PERCOCET: STOMACH PAIN - SIDE EFFECTS SURGICAL HISTORY REPAIR OF "HOLE IN THE HEART" 1970 GALL STONE REMOVAL 2013 COLONOSCOPY 2013 RIGHT CARPAL TUNNEL RELEASE 2014 TUBAL LIGATION 1992 FAMILY HISTORY FATHER: 54 YRS, OF HEART ATTACK MOTHER: 64 YRS, OF DIABETES SIBLINGS: ALIVE PATERNAL GRAND FATHER: , HEART ATTACK PATERNAL GRAND MOTHER: , OF [place]EM[place] MATERNAL GRAND FATHER: , LUPUS MATERNAL GRAND MOTHER: UNKNOWN 2 BROTHER(S) , 3 SISTER(S) - HEALTHY. 2 SON(S) , 1 DAUGHTER(S) . DAUGHTER HAS SYSTEMIC LUPUS- NOT TREATED AT THIS TIME1 AUNT WITH PSORIATIC ARTHRITIS. SOCIAL HISTORY GENERAL: TOBACCO USE ARE YOU A:NEVER SMOKER LATEX QUESTIONNAIRE LATEX ALLERGY : HAVE YOU EVER DEVELOPED ANY TYPE OF REACTION AFTER HANDLING LATEX PRODUCTS SUCH RUBBER GLOVES, CONDOMS, DIAPHRAGMS, BALLOONS, SOCKS, OR UNDERWEAR?NO LATEX ALLERGY : HAVE YOU EVER DEVELOPED ANY TYPE OF REACTION DURING OR AFTER DENTAL APPOINTMENT, VAGINAL/RECTAL EXAMINATION, SURGICAL PROCEDURE, OR ANY OTHER EXPOSURE?NO LATEX RISK : HAVE YOU EVER HAD ANY DIFFICULTY BREATHING OR HIVES AFTER EATING OR HANDLING ANY FRUITS, OR VEGETABLES; SUCH KIWI, BANANAS, STONE FRUITS, OR CHESTNUTSNO LATEX RISK : DO YOU HAVE A PREVIOUS PERSONAL HISTORY OF MORE THAN NINE SURGERIES, SPINA BIFIDA, OR REPEATED CATHERIZATIONS? NO LATEX RISK : ARE YOU FREQUENTLY EXPOSED TO LATEX PRODUCTS IN YOUR OCCUPATION?NO DATE ASKED : 01/01/2020 ALCOHOL SCREENING DID YOU HAVE A DRINK CONTAINING ALCOHOL IN THE PAST YEAR?NO POINTS0 INTERPRETATIONNEGATIVE RECREATIONAL DRUG USE DRUG USE?NO CAFFEINE CAFFEINE USE?NO SEXUAL HX HAD SEX IN THE LAST 12 MONTHS (VAGINAL, ORAL, OR ANAL)?NO HAVE YOU EVER HAD AN STD?NO HIV / HEP-C SCREENING HIV TEST OFFERED TO PATIENT:YES DATE OFFERED:01/08/2018 TEST ACCEPTED:YES HEP-C TEST OFFERED TO PATIENT:YES DATE OFFERED:01/08/2018 TEST ACCEPTED:YES BROCHURE PROVIDED TO PATIENTYES ANABAPTISM [id number] CAODAISM LANGUAGE LANGUAGES SPOKEN:[place] EDUCATION LEVEL OF EDUCATION:FINISHED HIGH SCHOOL LEARNING BARRIERS / SPECIAL NEEDS CHANGE FROM LAST VISIT?NO BARRIERS TO LEARNING?NO HEARING IMPAIRED?NO VISION IMPAIRED?YES :CORRECTIVE LENSES COGNITIVELY IMPAIRED?NO READINESS TO LEARN?YES LEARNING PREFERENCES?NO LEARNING CAPABILITIES PRESENT?YES EMOTIONAL BARRIERS?NO SPECIAL DEVICES?NO COMPUTER GAME DESIGNER NEEDED?NO DOMESTIC VIOLENCE DO YOU FEEL SAFE IN YOUR ENVIRONMENT?YES OCCUPATION: DISABLED. DIET: REGULAR. EXERCISE: NONE. MARITAL STATUS: . OTHERS AT HOME: SPOUSE 4 CHILDREN. PAIN CLINIC PFS, CLERGY, PUBLIC HEALTH REFERRALS HAS THE PATIENT BEEN EDUCATED REGARDING HIS/HER PLAN OF CARE?YES HAS THE PATIENT BEEN EDUCATED REGARDING PAIN, THE RISK FOR PAIN, THE IMPORTANCE OF EFFECTIVE PAIN MANAGEMENT, AND THE PAIN ASSESSMENT PROCESS?YES ADVANCE DIRECTIVE ADVANCE DIRECTIVE DISCUSSED WITH PATIENT:YES PATIENT HAS NO ADVANCED DIRECTIVES. HCP INFORMATION GIVEN, PATIENT DECLINED ASSISTANCE WITH PAPERWORK. HOSPITALIZATION/MAJOR DIAGNOSTIC PROCEDURE FERRO'S PALSY LEFT SIDE 2018 REVIEW OF SYSTEMS CONSTITUTIONAL: ANY RECENT FEVER NO . CHILLS NO . WEIGHT CHANGE OF UNKNOWN REASONS NO . MUSCULOSKELETAL: ANY UNUSUAL JOINT PAIN OR SWELLING NOT MENTIONED NO . SYSTEMIC LUPUS NO . ANY NEUROMUSCULAR DISORDER NOT MENTIONED NO . LYME DISEASE NO . GASTROENTEROLOGY: ANY NEW CHANGE IN BOWEL CONTROL? NO . HISTORY OF LIVER DISORDER NOT MENTIONED NO . HISTORY OF UNUSUAL ABDOMINAL PAIN OR CRAMPING NOT MENTIONED NO . NO CONSTIPATION. GENITOURINARY: ANY NEW CHANGE IN BLADDER CONTROL? NO . ANY RENAL/KIDNEY CONDITON NOT MENTIONED NO . NEUROLOGY: HISTORY OF TBI NOT MENTIONED NO . OTHER NEW NUMBNESS OR PAIN PATTERNS NOT MENTIONED NO . NEW ONSET DIZZINESS OR NEUROLOGICAL CHANGES NOT MENTIONED NO . HISTORY OF SEVERE HEADACHES NOT MENTIONED NO . HISTORY OF STROKE OR NEUROLOGICAL DISORDER NOT MENTIONED NO . CARDIOLOGY: HEART SURGERY NO . CONGESTIVE HEART FAILURE/FLUID OVERLOAD NOT MENTIONED NO . HISTORY OF CHEST PAIN,IRREGULAR HEART BEAT NOT MENTIONED NO . RESPIRATORY: SHORTNESS OF BREATH ON EXERTION, WHEEZES, UNUSUAL COUGH NOT MENTIONED NO . ENDOCRINOLOGY: ADRENAL GLAND OR THYROID DISORDERS NOT MENTIONED NO . UNUSUAL URINATION, DIZZINESS OR LETHARGY NOT MENTIONED NO . VITAL SIGNS WT 198 LBS, HT 64 IN, BMI 33.98 INDEX, BP 138/73 MM HG, HR 83 /MIN, RR 18 /MIN, TEMP 97.0 F, OXYGEN SAT % 95%, SAFE IN ENV? (Y/N) Y, NA INITIALS SC 10:41, REVIEWED BY: JSJ. RIKI RN. EXAMINATION GENERAL EXAMINATION: GENERALNO ACUTE DISTRESS, WELL NOURISHED AND HYDRATED. PSYCHAPPROPRIATE MOOD AND AFFECT . NECK:POINT TENDER ALONG CERVICAL SPINE, SURROUNDING SKIN SHOWS NO ERYTHEMA, ECCHYMOSIS, INCREASED WARMTH, AND/OR SKIN ERUPTIONS NOTED. PATIENT DOES ENDORSE INCREASED PAIN WITH FACET LOADING . LUNGS:CLEAR TO AUSCULTATION BILATERALLY, NO WHEEZES, RHONCHI, RALES. HEART:NO MURMURS, REGULAR RATE AND RHYTHM. ASSESSMENTS CERVICALGIA - M54.2 (PRIMARY) TREATMENT CERVICALGIA START LYRICA CAPSULE, 75 MG, 1 CAPSULE, ORALLY, TWICE A DAY, 30 DAYS, 60 NOTES: 54-YEAR-OLD FEMALE IN FOR INITIAL PAIN CONSULT. GIVEN PRESENTING SYMPTOMS RECOMMEND STARTING LYRICA 75 MG TWICE A DAY WITH FOLLOW-UP IN ONE MONTH TO DETERMINE EFFICACY OF TREATMENT. PATIENT HAS EXPRESSED UNDERSTANDING OF AND WAS IN AGREEMENT WITH TREATMENT PLAN. GIVEN TIME TO ASK QUESTIONS AND EXPRESS CONCERNS. PRINTED AND REVIEWED INFORMATION ON NEW MEDICATION, LYRICA, WITH PATIENT. PATIENT VERBALIZED AN UNDERSTANDING. Rosey LYN RN. PROCEDURE CODES FA211 ESTABILISHED PATIENT [facility] CHARGE DISPOSITION & COMMUNICATION FOLLOW UP 4 WEEKS (REASON: MEDICATION) ELECTRONICALLY SIGNED BY ANIL TURPIN ON 01/21/2020 AT 08:44 AM EST DISCLAIMER : THIS IS A VISIT SUMMARY EXTRACTED FROM THE [employer] CHART. IT IS NOT A COPY OF THE [employer] PROGRESS NOTE. MTDD
== END ==
LOC: M PAIN 10:45
PROVIDERS: ATTEND Family Medicine
DX: M54.2 Cervicalgia (principal); K76.0 Fatty (change of) liver, not elsewhere classified; E78.5 Hyperlipidemia, unspecified; G47.00 Insomnia, unspecified; F43.10 Post-traumatic stress disorder, unspecified; J45.50 Severe persistent asthma, uncomplicated; G47.30 Sleep apnea, unspecified; I10 Essential (primary) hypertension; E11.9 Type 2 diabetes mellitus without complications; K21.9 Gastro-esophageal reflux disease without esophagitis; M79.7 Fibromyalgia; Z79.1 Long term (current) use of non-steroidal anti-inflammatories (NSAID); Z79.84 Long term (current) use of oral hypoglycemic drugs; Z79.899 Other long term (current) drug therapy; Z88.5 Allergy status to narcotic agent; Z88.6 Allergy status to analgesic agent

== ENCOUNTER → 2020-03-04 | Outpatient (CLI) | payer OTHER ==
--- NOTE | 2020-03-09 23:02 | ECWPNPC ---
PATIENT NAME: ZAHIDA RICHMOND : 1965 GENDER: FEMALE VISIT DATE: 03/04/2020 DISCHARGE DATE: 03/04/20 1416 VISIT LOCKED DATE TIME: PHYSICIAN: JORGE OBRIEN PHYSICIAN PAGER NO: ACTIVE RESOURCE: JORGE OBRIEN REASON FOR APPOINTMENT 1. SPONDYLOSIS OF CERVICAL/DISCUSS A NEW MED HISTORY OF PRESENT ILLNESS GENERAL: - 54-YEAR-OLD FEMALE IN FOR CHRONIC PAIN FOLLOW-UP. AT LAST CLINIC VISIT PATIENT WAS STARTED ON LYRICA AND SHE ADMITS TODAY THAT THIS HAS BEEN SOMEWHAT BENEFICIAL. HOWEVER IT IS NOT COMPLETELY COVERING HER PAIN. SHE RATES HER PAIN CURRENTLY AT A 9 OUT OF 10 AND DESCRIBES IT BURNING, SHARP, AND SHOOTING. FALL RISK SCREENING: SCREENING :TWO OR MORE FALLS WITHOUT INJURY IN THE PAST YEAR LAST WEEK FELL OFF HER BED "HALF ASLEEP" PAIN SCREENING: PATIENT HAS A COMPLAINT OF ACUTE OR CHRONIC PAIN :YES LOCATION OF PAIN:NECK, LEFT SHOULDER INTENSITY OF PAIN (SCALE OF 1 TO 10):9 WHAT DOES YOUR PAIN FEEL LIKE:BURNING, SHARP, SHOOTING PAIN IS INCREASED BY:OTHERS WHEN SITTING UP A LONG TIME NURSING NOTE: -. PAIN CENTER INTAKE QUESTIONS: DO YOU HAVE A HISTORY OF MRSA? :NO DO YOU TAKE A BLOOD THINNERS? :NO DO YOU HAVE ANY BLEEDING DISORDERS? :NO ANY NEW NUMBNESS OR WEAKNESS IN YOUR LEGS OR ARMS? :NO ANY PACEMAKER,DEFIBRILLATOR, OR DORSAL COLUMN STIMULATOR? :NO DO YOU HAVE ANY RASHES OR OPEN SORES? :NO ARE YOU ALLERGIC TO IV DYE? :NO ARE YOU DIABETIC? :YES ANY NEW PROBLEMS WITH YOUR MEDICATIONS? :NO HAVE YOU RECEIVED A VACCINE IN THE PAST 30 DAYS? :NO DO YOU PLAN TO RECEIVE A VACCINE IN THE NEXT 21 DAYS? :NO DO YOU NEED ANY PRESCRIPTION? :NO DO YOU TAKE ANY IMMUNOSUPPRESSIVE MEDICATIONS? :NO IS THERE A CHANCE YOU COULD BE ? :NO ARE YOU BREAST FEEDING? :NO CURRENT MEDICATIONS TAKING MUPIROCIN 2 % OINTMENT 1 APPLICATION EXTERNALLY BID NEEDED TAKING HYDROXYCHLOROQUINE 200 MG 1 TAB ORALLY BID TAKING AIRDUO RESPICLICK 232/14 232-14 MCG/ACT AEROSOL POWDER BREATH ACTIVATED 1 PUFF INHALATION TWICE A DAY TAKING LOSARTAN POTASSIUM 50 MG TABLET 1 TABLET ORALLY BID TAKING OMEGA 3 1200 MG CAPSULE 1 CAPSULE ORALLY ONCE A DAY TAKING HYDROCORTISONE ACETATE 1 % CREAM 1 APPLICATION EXTERNALLY ONCE A DAY TAKING DICLOFENAC SODIUM 1 % GEL 2 GRAMS TO AFFECTED TRANSDERMAL FOUR TIMES DAILY NEEDED TAKING FLUCONAZOLE 150 MG TABLET 1 TABLET ORALLY DAILY TAKING INCRUSE ELLIPTA 62.5 MCG/INH AEROSOL POWDER BREATH ACTIVATED 1 PUFF INHALATION ONCE A DAY TAKING DUPIXENT 300 MG/2ML SOLUTION PREFILLED SYRINGE 2 ML SUBCUTANEOUS 1 SHOT EVERY 2WEEKS TAKING ROPINIROLE HCL ER 2 MG TABLET EXTENDED RELEASE 24 HOUR 1 TABLET ORALLY ONCE A DAY AT BEDTIME TAKING TIZANIDINE HCL 4 MG TABLET 1 TABLET NEEDED ORALLY TWICE DAILY NEEDED TAKING MELOXICAM 15 MG TABLET 1 TABLET ORALLY ONCE A DAY PRN PAIN TAKING TRAZODONE HCL 100 MG TABLET 1 TABLET AT BEDTIME ORALLY ONCE A DAY TAKING ERGOCALCIFEROL 13704 UNIT CAPSULE 1 CAPSULE ORALLY WEEKLY TAKING OMEPRAZOLE 40 MG CAPSULE DELAYED RELEASE 1 CAPSULE ORALLY ONCE A DAY TAKING ZETIA 10 MG TABLET 1 TABLET ORALLY ONCE A DAY TAKING ASPIRIN ADULT LOW STRENGTH 81 MG TABLET DELAYED RELEASE 1 TABLET ORALLY ONCE A DAY TAKING ALBUTEROL 90 MCG/ACT AEROSOL SOLUTION 2 PUFFS INHALATION BID NEEDED TAKING CETIRIZINE HCL 10 MG TABLET 1 TABLET NEEDED ORALLY ONCE A DAY TAKING SINGULAIR 10 MG TABLET 1 TABLET ORALLY ONCE A DAY TAKING METFORMIN HCL ER 500 MG TABLET EXTENDED RELEASE 24 HOUR 1 TABLET WITH EVENING MEAL ORALLY ONCE A DAY TAKING ZOLPIDEM TARTRATE 10 MG TABLET 1 TABLET AT BEDTIME NEEDED ORALLY ONCE A DAY TAKING ATORVASTATIN CALCIUM 40 MG TABLET TAKE 1 TABLET BY MOUTH ONCE DAILY ORALLY DAILY TAKING LYRICA 75 MG CAPSULE 1 CAPSULE ORALLY TWICE A DAY TAKING TYLENOL 8 HOUR 650 MG TABLET EXTENDED RELEASE 2 TABLETS NEEDED ORALLY EVERY 8 HRS NOT-TAKING SKELAXIN 800 MG TABLET 1 TABLET ORALLY BID NOT-TAKING VENLAFAXINE HCL ER 37.5 MG CAPSULE EXTENDED RELEASE 24 HOUR 1 CAPSULE WITH FOOD ORALLY ONCE A DAY NOT-TAKING SKELAXIN 800 MG TABLET 1 TABLET ORALLY TWO TIMES A DAY AFTER MEALS NOT-TAKING CYCLOBENZAPRINE HCL 5 MG TABLET 1 TABLET AT BEDTIME NEEDED ORALLY ONCE A DAY MEDICATION LIST REVIEWED AND RECONCILED WITH THE PATIENT PAST MEDICAL HISTORY FATTY LIVER RHEUMATIC FEVER AT 7 MITRAL VALVE STENOSIS -ECHO 10/[address] CORDON EF 65%. NORMAL ECHO S ANNUAL VALVE DEFECT CTD ? SLE (LUPUS) HYPERLIPIDEMIA INSOMNIA PTSD ASTHMA, SEVERE PERSISTENT- ON XOLAIR- DR. SIU POSITIONAL SLEEP APNEA AHI 6.2 HYPERTENSION DM TYPE 2 - STATES PRE-DIABETES GERD FIBROMYALGIA DJD L4-S1- CT SPINE - 02/2018 COLONOSCOPY 08/2018- HYPERPLASTIC POLYP REPEAT 08/2017 DR. FERNANDES ALLERGIES VICODIN: ITCHING - ALLERGY CODEINE PHOSPHATE (FOR ALLERGIES USE ONLY): ITCHING - ALLERGY PERCOCET: STOMACH PAIN - SIDE EFFECTS SURGICAL HISTORY REPAIR OF "HOLE IN THE HEART" 1971 GALL STONE REMOVAL 2013 COLONOSCOPY 2013 RIGHT CARPAL TUNNEL RELEASE 2014 TUBAL LIGATION 1992 FAMILY HISTORY FATHER: 54 YRS, OF HEART ATTACK MOTHER: 64 YRS, OF DIABETES SIBLINGS: ALIVE PATERNAL GRAND FATHER: , HEART ATTACK PATERNAL GRAND MOTHER: , OF [place] MATERNAL GRAND FATHER: , LUPUS MATERNAL GRAND MOTHER: UNKNOWN 2 BROTHER(S) , 3 SISTER(S) - HEALTHY. 2 SON(S) , 1 DAUGHTER(S) . DAUGHTER HAS SYSTEMIC LUPUS- NOT TREATED AT THIS TIME1 AUNT WITH PSORIATIC ARTHRITIS. SOCIAL HISTORY GENERAL: TOBACCO USE ARE YOU A:NEVER SMOKER LATEX QUESTIONNAIRE LATEX ALLERGY : HAVE YOU EVER DEVELOPED ANY TYPE OF REACTION AFTER HANDLING LATEX PRODUCTS SUCH RUBBER GLOVES, CONDOMS, DIAPHRAGMS, BALLOONS, SOCKS, OR UNDERWEAR?NO LATEX ALLERGY : HAVE YOU EVER DEVELOPED ANY TYPE OF REACTION DURING OR AFTER DENTAL APPOINTMENT, VAGINAL/RECTAL EXAMINATION, SURGICAL PROCEDURE, OR ANY OTHER EXPOSURE?NO DATE ASKED : 01/01/2020 LATEX RISK : HAVE YOU EVER HAD ANY DIFFICULTY BREATHING OR HIVES AFTER EATING OR HANDLING ANY FRUITS, OR VEGETABLES; SUCH KIWI, BANANAS, STONE FRUITS, OR CHESTNUTSNO LATEX RISK : DO YOU HAVE A PREVIOUS PERSONAL HISTORY OF MORE THAN NINE SURGERIES, SPINA BIFIDA, OR REPEATED CATHERIZATIONS? NO LATEX RISK : ARE YOU FREQUENTLY EXPOSED TO LATEX PRODUCTS IN YOUR OCCUPATION?NO ALCOHOL SCREENING DID YOU HAVE A DRINK CONTAINING ALCOHOL IN THE PAST YEAR?NO POINTS0 INTERPRETATIONNEGATIVE RECREATIONAL DRUG USE DRUG USE?NO CAFFEINE CAFFEINE USE?NO SEXUAL HX HAD SEX IN THE LAST 12 MONTHS (VAGINAL, ORAL, OR ANAL)?NO HAVE YOU EVER HAD AN STD?NO HIV / HEP-C SCREENING HIV TEST OFFERED TO PATIENT:YES DATE OFFERED:01/08/2018 TEST ACCEPTED:YES HEP-C TEST OFFERED TO PATIENT:YES DATE OFFERED:01/08/2018 TEST ACCEPTED:YES BROCHURE PROVIDED TO PATIENTYES [employer]IAN [id number] SCIENTOLOGY LANGUAGE LANGUAGES SPOKEN:TANZANIAN EDUCATION LEVEL OF EDUCATION:FINISHED HIGH SCHOOL LEARNING BARRIERS / SPECIAL NEEDS CHANGE FROM LAST VISIT?NO BARRIERS TO LEARNING?NO HEARING IMPAIRED?NO VISION IMPAIRED?YES COGNITIVELY IMPAIRED?NO :CORRECTIVE LENSES READINESS TO LEARN?YES LEARNING PREFERENCES?NO LEARNING CAPABILITIES PRESENT?YES EMOTIONAL BARRIERS?NO SPECIAL DEVICES?NO SUPERVISOR INSTRUMENT MAINTENANCE NEEDED?NO DOMESTIC VIOLENCE DO YOU FEEL SAFE IN YOUR ENVIRONMENT?YES OCCUPATION: DISABLED. DIET: REGULAR. EXERCISE: NONE. MARITAL STATUS: . OTHERS AT HOME: SPOUSE 4 CHILDREN. PAIN CLINIC PFS, CLERGY, PUBLIC HEALTH REFERRALS HAS THE PATIENT BEEN EDUCATED REGARDING HIS/HER PLAN OF CARE?YES HAS THE PATIENT BEEN EDUCATED REGARDING PAIN, THE RISK FOR PAIN, THE IMPORTANCE OF EFFECTIVE PAIN MANAGEMENT, AND THE PAIN ASSESSMENT PROCESS?YES ADVANCE DIRECTIVE ADVANCE DIRECTIVE DISCUSSED WITH PATIENT:YES PATIENT HAS NO ADVANCED DIRECTIVES. HCP INFORMATION GIVEN, PATIENT DECLINED ASSISTANCE WITH PAPERWORK. HOSPITALIZATION/MAJOR DIAGNOSTIC PROCEDURE FERRO'S PALSY LEFT SIDE 2018 REVIEW OF SYSTEMS CONSTITUTIONAL: ANY RECENT FEVER NO . CHILLS NO . WEIGHT CHANGE OF UNKNOWN REASONS NO . GASTROENTEROLOGY: NEW UNEXPLAINABLE CHANGES IN BOWEL CONTROL NO . CONSTIPATION NO . GENITOURINARY: ANY NEW CHANGE IN BLADDER CONTROL? NO . NEUROLOGY: NEW ONSET DIZZINESS OR NEUROLOGICAL CHANGES NOT MENTIONED NO . NEW NUMBNESS OR PAIN PATTERNS NOT MENTIONED AND PERTINENT TO TODAY'S VISIT NO . CARDIOLOGY: NEW CHEST PRESSURE NO . NEW CHEST PAIN NO . RESPIRATORY: UNEXPLAINABLE COUGH NO . NEW SHORTNESS OF BREATH NO . VITAL SIGNS WT 203.0 LBS, HT 64 IN, BMI 34.84 INDEX, BP 182/74 MM HG, HR 76 /MIN, RR 18 /MIN, TEMP 98.5 F, OXYGEN SAT % 97%, NA INITIALS AW 1353. EXAMINATION GENERAL EXAMINATION: GENERALNO ACUTE DISTRESS, WELL NOURISHED AND HYDRATED. PSYCHAPPROPRIATE MOOD AND AFFECT . LUNGS:CLEAR TO AUSCULTATION BILATERALLY, NO WHEEZES, RHONCHI, RALES. HEART:NO MURMURS, REGULAR RATE AND RHYTHM. ASSESSMENTS CERVICALGIA - M54.2 (PRIMARY) TREATMENT CERVICALGIA INCREASE LYRICA CAPSULE, 100 MG, 1 CAPSULE, ORALLY, TWICE A DAY, 30 DAYS, 60 NOTES: 54-YEAR-OLD FEMALE IN FOR CHRONIC PAIN FOLLOW-UP. GIVEN PRESENTING SYMPTOMS RECOMMENDED INCREASING LYRICA TO 100MG TWICE A DAY WITH FOLLOW-UP IN ONE MONTH TO DETERMINE EFFICACY OF TREATMENT. PATIENT EXPRESSED UNDERSTANDING OF AND WAS IN AGREEMENT WITH TREATMENT PLAN. GIVEN TIME TO ASK QUESTIONS AND EXPRESS CONCERNS. , ISTOP REGISTRY REVIEWED AND DEMONSTRATES COMPLLIANCE. (REF # [id number] ) BRINGS IN MEDICATIONS WHICH IS APPROPRIATE FOR WHAT WAS DISPENSED. RECENT URINE TOXICOLOGY REVIEWED. NO UNAUTHORIZED MEDICATIONS. NO ILLICIT SUBSTANCES AND PRESCRIBED MEDICATIONS WERE PRESENT. PROCEDURE CODES FA211 ESTABILISHED PATIENT [facility] CHARGE DISPOSITION & COMMUNICATION FOLLOW UP 4 WEEKS (REASON: CERVICALGIA) ELECTRONICALLY SIGNED BY ANIL TURPIN ON 03/09/2020 AT 10:14 AM EST DISCLAIMER : THIS IS A VISIT SUMMARY EXTRACTED FROM THE [employer] CHART. IT IS NOT A COPY OF THE [employer] PROGRESS NOTE. CARRLILOD
== END ==
LOC: M PAIN 13:45
PROVIDERS: ATTEND Family Medicine
DX: M54.2 Cervicalgia (principal); G89.29 Other chronic pain; E11.9 Type 2 diabetes mellitus without complications; G47.00 Insomnia, unspecified; J45.50 Severe persistent asthma, uncomplicated; G47.39 Other sleep apnea; M79.7 Fibromyalgia; Z86.59 Personal history of other mental and behavioral disorders; Z88.5 Allergy status to narcotic agent; Z79.51 Long term (current) use of inhaled steroids; Z79.82 Long term (current) use of aspirin; Z79.84 Long term (current) use of oral hypoglycemic drugs; Z79.899 Other long term (current) drug therapy

== ENCOUNTER → 2020-05-20 | Outpatient (REF) | payer OTHER ==
[~2020-05-20] MED LIST changes: -CLIN150C14 PO; +CLIN150C15 PO
[2020-05-20 12:56] LABS: APPEARANCE, URINE CLEAR (CLEAR); BACTERIA, URINE AUTO NEGATIVE (NEGATIVE); BILIRUBIN, URINE AUTO NEGATIVE (NEGATIVE); BLOOD, URINE BLOOD NEGATIVE (NEGATIVE); COLOR, URINE YELLOW (YELLOW); GLUCOSE, URINE (UA) AUTO NEGATIVE (NEGATIVE); KETONE, URINE AUTO NEGATIVE (NEGATIVE); LEUKOCYTE ESTERASE, URINE AUTO TRACE (NEGATIVE); MUCUS, URINE SMALL (NEGATIVE); NITRITE, URINE AUTO NEGATIVE (NEGATIVE); PROTEIN, URINE AUTO NEGATIVE (NEGATIVE); RBC, URINE AUTO 0 /HPF (0-3); SPECIFIC GRAVITY URINE AUTO 1.019 (1.002-1.035); SQUAMOUS EPITHELIAL CELL UR AU 0 /HPF (0-6); UROBILINOGEN, URINE AUTO 0.2 mg/dL (0.0-2.0); WBC, URINE AUTO 2 /HPF (0-3)
[2020-05-20 14:03] LABS: BASO # 0.1 10^3/uL (0.0-0.2); BASO % 0.8 % (0.0-1.0); EOS # 0.5 10^3/uL (0.0-0.5); EOS % 8.7 % (0.0-3.0); HEMATOCRIT 37.6 % (36.0-47.0); HEMOGLOBIN 11.9 g/dl (12.0-15.5); LYMPH # 2.1 10^3/uL (1.5-5.0); LYMPH % 34.8 % (24.0-44.0); MEAN CORPUSCULAR HEMOGLOBIN 27.7 pg (27.0-33.0); MEAN CORPUSCULAR HGB CONC 31.6 g/dl (32.0-36.5); MEAN CORPUSCULAR VOLUME 87.4 fl (80.0-96.0); MONO # 0.4 10^3/uL (0.0-0.8); MONO % 6.2 % (2.0-8.0); NEUTROPHILS % 49.3 % (36.0-66.0); PLATELET COUNT, AUTOMATED 168 10^3/uL (150-450); WHITE BLOOD COUNT 6.1 10^3/uL (4.0-10.0)
[2020-05-20 14:09] LABS: TOTAL PROTEIN,RANDOM URINE 27.3 MG/DL (0.0-12.0)
[2020-05-20 14:24] LABS: ERYTHROCYTE SEDIMENTATION RATE 45 mm/hr (0-30)
[2020-05-20 14:27] LABS: ALBUMIN 3.9 GM/DL (3.2-5.2); ALT/SGPT 32 U/L (12-78); BILIRUBIN,TOTAL 0.3 MG/DL (0.2-1.0); BLOOD UREA NITROGEN 15 MG/DL (7-18); CALCIUM LEVEL 8.9 MG/DL (8.5-10.1); CARBON DIOXIDE LEVEL 29 MEQ/L (21-32); CHLORIDE LEVEL 107 MEQ/L (98-107); CHOLESTEROL LEVEL 109 MG/DL (<200); CHOLESTEROL RISK RATIO 2.725 (<5); COMPLEMENT C3 119 MG/DL (90-180); COMPLEMENT C4 28 MG/DL (10-40); CREATININE FOR GFR 0.86 MG/DL (0.55-1.30); FREE T4 0.82 NG/DL (0.76-1.46); GLOMERULAR FILTRATION RATE > 60.0 (>51); GLUCOSE, FASTING 98 MG/DL (70-100); HDL CHOLESTEROL 40 MG/DL (>40); LDL CHOLESTEROL 32 MG/DL (<100); NON-HDL-C 69 MG/DL; POTASSIUM SERUM 4.1 MEQ/L (3.5-5.1); SODIUM LEVEL 140 MEQ/L (136-145); THYROID STIMULATING HORMONE 0.777 uIU/ML (0.358-3.740); TOTAL 25(OH) VITAMIN D 59.4 NG/ML (30.0-100.0); TRIGLYCERIDES LEVEL 186 MG/DL (<150)
[2020-05-20 15:18] LABS: HEMOGLOBIN A1c 5.8 %
== END ==
LOC: M SFHCRHEU 09:20
PROVIDERS: ATTEND Internal Medicine
DX: M32.9 Systemic lupus erythematosus, unspecified (principal); E78.5 Hyperlipidemia, unspecified; E55.9 Vitamin D deficiency, unspecified; E11.9 Type 2 diabetes mellitus without complications

== ENCOUNTER → 2020-06-04 | Outpatient (CLI) | payer OTHER ==
--- NOTE | 2020-06-06 00:45 | ECWPNPC ---
PATIENT NAME: ZAHIDA RICHMOND : 1965 GENDER: FEMALE VISIT DATE: 06/04/2020 DISCHARGE DATE: 06/04/20 0936 VISIT LOCKED DATE TIME: PHYSICIAN: JORGE OBRIEN PHYSICIAN PAGER NO: ACTIVE RESOURCE: JORGE OBRIEN REASON FOR APPOINTMENT 1. CERVICALGIA HISTORY OF PRESENT ILLNESS DEPRESSION SCREENING: PHQ-2 (2015 EDITION) LITTLE INTEREST OR PLEASURE IN DOING THINGS?NOT AT ALL FEELING DOWN, DEPRESSED, OR HOPELESS?NOT AT ALL TOTAL SCORE0 54-YEAR-OLD FEMALE IN FOR CHRONIC PAIN FOLLOW-UP. AT LAST CLINIC VISIT PATIENT'S LYRICA WAS INCREASED AND SHE ADMITS TODAY THAT THIS HAS BEEN BENEFICIAL BUT SHE STILL EXPRESSES INCREASED PAIN AT TIMES. PATIENT DOES ADMIT THAT SHE HAS USED A TENS UNIT IN THE PAST AND FOUND GOOD RELIEF WITH THIS. SHE RATES HER PAIN CURRENTLY AT A 6 OUT OF 10 AND DESCRIBES IT ACHING AND CONTINUOUS. GENERAL: -. FALL RISK SCREENING: SCREENING : NO FALLS REPORTED IN THE LAST YEAR. PAIN SCREENING: PATIENT HAS A COMPLAINT OF ACUTE OR CHRONIC PAIN :YES LOCATION OF PAIN:NECK, LEFT SHOULDER, RIGHT SHOULDER INTENSITY OF PAIN (SCALE OF 1 TO 10):6 WHAT DOES YOUR PAIN FEEL LIKE:ACHING, CONTINOUS DURATION:CONTINOUS PAIN IS INCREASED BY:OTHERS BENDING, LIFTING PAIN IS DECREASED BY:OTHERS REST, STATES SHE HAS USED A TENS UNIT IN THE PAST WITH RELIEF NURSING NOTE: -. PAIN CENTER INTAKE QUESTIONS: DO YOU HAVE A HISTORY OF MRSA? :NO DO YOU TAKE A BLOOD THINNERS? :NO DO YOU HAVE ANY BLEEDING DISORDERS? :NO ANY NEW NUMBNESS OR WEAKNESS IN YOUR LEGS OR ARMS? :NO ANY PACEMAKER,DEFIBRILLATOR, OR DORSAL COLUMN STIMULATOR? :NO DO YOU HAVE ANY RASHES OR OPEN SORES? :NO ARE YOU ALLERGIC TO IV DYE? :NO ARE YOU DIABETIC? :NO ANY NEW PROBLEMS WITH YOUR MEDICATIONS? :NO HAVE YOU RECEIVED A VACCINE IN THE PAST 30 DAYS? :NO DO YOU PLAN TO RECEIVE A VACCINE IN THE NEXT 21 DAYS? :NO DO YOU NEED ANY PRESCRIPTION? :YES LYRICA DO YOU TAKE ANY IMMUNOSUPPRESSIVE MEDICATIONS? :NO DO YOU HAVE ANY KIDNEY OR LIVER DISEASE? :NO IS THERE A CHANCE YOU COULD BE ? :NO ARE YOU BREAST FEEDING? :NO CURRENT MEDICATIONS TAKING HYDROCORTISONE ACETATE 1 % CREAM 1 APPLICATION EXTERNALLY ONCE A DAY TAKING TIZANIDINE HCL 4 MG TABLET 1 TABLET NEEDED ORALLY TWICE DAILY NEEDED TAKING MELOXICAM 15 MG TABLET 1 TABLET ORALLY ONCE A DAY PRN PAIN TAKING HYDROXYCHLOROQUINE 200 MG 1 TAB ORALLY BID TAKING CETIRIZINE HCL 10 MG TABLET 1 TABLET NEEDED ORALLY ONCE A DAY TAKING SINGULAIR 10 MG TABLET 1 TABLET ORALLY ONCE A DAY TAKING AIRDUO RESPICLICK 232/14 232-14 MCG/ACT AEROSOL POWDER BREATH ACTIVATED 1 PUFF INHALATION TWICE A DAY TAKING VENLAFAXINE HCL ER 37.5 MG CAPSULE EXTENDED RELEASE 24 HOUR 1 CAPSULE WITH FOOD ORALLY ONCE A DAY TAKING OMEPRAZOLE 40 MG CAPSULE DELAYED RELEASE 1 CAPSULE ORALLY ONCE A DAY TAKING ZOLPIDEM TARTRATE 10 MG TABLET 1 TABLET AT BEDTIME NEEDED ORALLY ONCE A DAY TAKING TRAZODONE HCL 100 MG TABLET 1 TABLET AT BEDTIME ORALLY ONCE A DAY TAKING ASPIRIN ADULT LOW STRENGTH 81 MG TABLET DELAYED RELEASE 1 TABLET ORALLY ONCE A DAY TAKING LOSARTAN POTASSIUM 50 MG TABLET 1 TABLET ORALLY BID TAKING ERGOCALCIFEROL 89441 UNIT CAPSULE 1 CAPSULE ORALLY EVERY OTHER WEEK TAKING ATORVASTATIN CALCIUM 40 MG TABLET 1 TABLET ORALLY ONCE A DAY TAKING OMEGA 3 1000 MG CAPSULE 2 CAPSULE ORALLY ONCE A DAY TAKING ZETIA 10 MG TABLET 1 TABLET ORALLY ONCE A DAY TAKING ROPINIROLE HCL ER 2 MG TABLET EXTENDED RELEASE 24 HOUR 1 TABLET ORALLY ONCE A DAY AT BEDTIME TAKING METFORMIN HCL ER 500 MG TABLET EXTENDED RELEASE 24 HOUR 1 TABLET WITH EVENING MEAL ORALLY ONCE A DAY TAKING FLUCONAZOLE 150 MG TABLET 1 TABLET ORALLY DAILY TAKING INCRUSE ELLIPTA 62.5 MCG/INH AEROSOL POWDER BREATH ACTIVATED 1 PUFF INHALATION ONCE A DAY TAKING DUPIXENT 300 MG/2ML SOLUTION PREFILLED SYRINGE 2 ML SUBCUTANEOUS 1 SHOT EVERY 2WEEKS, NOTES: ASTHMA TAKING TYLENOL 8 HOUR 650 MG TABLET EXTENDED RELEASE 2 TABLETS NEEDED ORALLY EVERY 8 HRS TAKING GLUCOMETER (VERIO IQ) 1 GLUCOMETER DIRECTED E11.9 DAILY TAKING ADVOCATE LANCETS 1 MISCELLANEOUS DIRECTED E11.9 DAILY TAKING GLUCOSE STRIP (VERIO IQ) 1 DIRECTED E11.9 DAILY TAKING ALBUTEROL 90 MCG/ACT AEROSOL SOLUTION 2 PUFFS INHALATION BID NEEDED NOT-TAKING MUPIROCIN 2 % OINTMENT 1 APPLICATION EXTERNALLY BID NEEDED NOT-TAKING DICLOFENAC SODIUM 1 % GEL 2 GRAMS TO AFFECTED TRANSDERMAL FOUR TIMES DAILY NEEDED NOT-TAKING LYRICA 100 MG CAPSULE 1 CAPSULE ORALLY TWICE A DAY, NOTES: NOT TAKING AT THIS TIME NOT-TAKING SKELAXIN 800 MG TABLET 1 TABLET ORALLY BID NOT-TAKING SKELAXIN 800 MG TABLET 1 TABLET ORALLY TWO TIMES A DAY AFTER MEALS NOT-TAKING CYCLOBENZAPRINE HCL 5 MG TABLET 1 TABLET AT BEDTIME NEEDED ORALLY ONCE A DAY DISCONTINUED ATORVASTATIN CALCIUM 40 MG TABLET TAKE 1 TABLET BY MOUTH ONCE DAILY ORALLY DAILY DISCONTINUED TIZANIDINE HCL MEDICATION LIST REVIEWED AND RECONCILED WITH THE PATIENT PAST MEDICAL HISTORY FATTY LIVER RHEUMATIC FEVER AT 7 MITRAL VALVE STENOSIS -ECHO 10/[address] CORDON EF 65%. NORMAL ECHO S ANNUAL VALVE DEFECT CTD ? SLE (LUPUS) HYPERLIPIDEMIA INSOMNIA PTSD ASTHMA, SEVERE PERSISTENT- ON XOLAIR- DR. SIU POSITIONAL SLEEP APNEA AHI 6.2 HYPERTENSION DM TYPE 2 - STATES PRE-DIABETES GERD FIBROMYALGIA DJD L4-S1- CT SPINE - 02/2018 COLONOSCOPY 08/2018- HYPERPLASTIC POLYP REPEAT 08/2017 DR. FERNANDES ALLERGIES VICODIN: ITCHING - ALLERGY CODEINE PHOSPHATE (FOR ALLERGIES USE ONLY): ITCHING - ALLERGY PERCOCET: STOMACH PAIN - SIDE EFFECTS SOCIAL HISTORY GENERAL: TOBACCO USE ARE YOU A:NEVER SMOKER LATEX QUESTIONNAIRE LATEX ALLERGY : HAVE YOU EVER DEVELOPED ANY TYPE OF REACTION AFTER HANDLING LATEX PRODUCTS SUCH RUBBER GLOVES, CONDOMS, DIAPHRAGMS, BALLOONS, SOCKS, OR UNDERWEAR?NO LATEX ALLERGY : HAVE YOU EVER DEVELOPED ANY TYPE OF REACTION DURING OR AFTER DENTAL APPOINTMENT, VAGINAL/RECTAL EXAMINATION, SURGICAL PROCEDURE, OR ANY OTHER EXPOSURE?NO LATEX RISK : HAVE YOU EVER HAD ANY DIFFICULTY BREATHING OR HIVES AFTER EATING OR HANDLING ANY FRUITS, OR VEGETABLES; SUCH KIWI, BANANAS, STONE FRUITS, OR CHESTNUTSNO LATEX RISK : DO YOU HAVE A PREVIOUS PERSONAL HISTORY OF MORE THAN NINE SURGERIES, SPINA BIFIDA, OR REPEATED CATHERIZATIONS? NO LATEX RISK : ARE YOU FREQUENTLY EXPOSED TO LATEX PRODUCTS IN YOUR OCCUPATION?NO DATE ASKED : 06/04/2020 ALCOHOL USE: NO. ALCOHOL SCREENING DID YOU HAVE A DRINK CONTAINING ALCOHOL IN THE PAST YEAR?NO POINTS0 INTERPRETATIONNEGATIVE RECREATIONAL DRUG USE DRUG USE?NO * PATIENT USES CBD DROPS NEEDED FOR PAIN CAFFEINE CAFFEINE USE?NO SEXUAL HX HAD SEX IN THE LAST 12 MONTHS (VAGINAL, ORAL, OR ANAL)?NO HAVE YOU EVER HAD AN STD?NO HIV / HEP-C SCREENING HIV TEST OFFERED TO PATIENT:YES DATE OFFERED:01/08/2018 TEST ACCEPTED:YES HEP-C TEST OFFERED TO PATIENT:YES DATE OFFERED:01/08/2018 TEST ACCEPTED:YES BROCHURE PROVIDED TO PATIENTYES [id number] LANGUAGE LANGUAGES SPOKEN:[place] EDUCATION LEVEL OF EDUCATION:FINISHED HIGH SCHOOL LEARNING BARRIERS / SPECIAL NEEDS CHANGE FROM LAST VISIT?NO BARRIERS TO LEARNING?NO HEARING IMPAIRED?NO VISION IMPAIRED?YES COGNITIVELY IMPAIRED?NO :CORRECTIVE LENSES READINESS TO LEARN?YES LEARNING PREFERENCES?NO LEARNING CAPABILITIES PRESENT?YES EMOTIONAL BARRIERS?NO SPECIAL DEVICES?NO INTERNATIONAL SPECIALIST NEEDED?NO DOMESTIC VIOLENCE DO YOU FEEL SAFE IN YOUR ENVIRONMENT?YES OCCUPATION: DISABLED. DIET: REGULAR. EXERCISE: NONE. MARITAL STATUS: . OTHERS AT HOME: SPOUSE 4 CHILDREN. - HAS THE PATIENT BEEN EDUCATED REGARDING HIS/HER PLAN OF CARE?YES HAS THE PATIENT BEEN EDUCATED REGARDING PAIN, THE RISK FOR PAIN, THE IMPORTANCE OF EFFECTIVE PAIN MANAGEMENT, AND THE PAIN ASSESSMENT PROCESS?YES ADVANCE DIRECTIVE ADVANCE DIRECTIVE DISCUSSED WITH PATIENT:YES PATIENT HAS NO ADVANCED DIRECTIVES. HCP INFORMATION GIVEN, PATIENT DECLINED ASSISTANCE WITH PAPERWORK. REVIEW OF SYSTEMS CONSTITUTIONAL: ANY RECENT FEVER NO . CHILLS NO . WEIGHT CHANGE OF UNKNOWN REASONS NO . GASTROENTEROLOGY: NEW UNEXPLAINABLE CHANGES IN BOWEL CONTROL NO . CONSTIPATION NO . GENITOURINARY: ANY NEW CHANGE IN BLADDER CONTROL? NO . NEUROLOGY: NEW ONSET DIZZINESS OR NEUROLOGICAL CHANGES NOT MENTIONED NO . NEW NUMBNESS OR PAIN PATTERNS NOT MENTIONED AND PERTINENT TO TODAY'S VISIT NO . CARDIOLOGY: NEW CHEST PRESSURE NO . PATIENT DENIES NO . RESPIRATORY: UNEXPLAINABLE COUGH NO . NEW SHORTNESS OF BREATH NO . VITAL SIGNS WT 198.4 LBS, HT 64 IN, BMI 34.05 INDEX, BP 118/69 MM HG, HR 75 /MIN, RR 18 /MIN, TEMP 97.3 F, OXYGEN SAT % 96%, SAFE IN ENV? (Y/N) YES, NA INITIALS MS 09:01, REVIEWED BY: Jac FORBES RN. EXAMINATION GENERAL EXAMINATION: GENERALNO ACUTE DISTRESS, WELL NOURISHED AND HYDRATED. PSYCHAPPROPRIATE MOOD AND AFFECT . LUNGS:CLEAR TO AUSCULTATION BILATERALLY, NO WHEEZES, RHONCHI, RALES. HEART:NO MURMURS, REGULAR RATE AND RHYTHM. ASSESSMENTS CERVICALGIA - M54.2 (PRIMARY) TREATMENT CERVICALGIA NOTES: 54-YEAR-OLD FEMALE IN FOR CHRONIC PAIN FOLLOW-UP. GIVEN PRESENTING SYMPTOMS RECOMMEND CONTINUED USE OF LYRICA AND USE OF A TENS UNIT WITH FOLLOW-UP IN 2 MONTHS. PATIENT HAS EXPRESSED UNDERSTANDING OF WAS IN AGREEMENT WITH TREATMENT PLAN. GIVEN TIME TO ASK QUESTIONS AND EXPRESS CONCERNS. , ISTOP REGISTRY REVIEWED AND DEMONSTRATES COMPLLIANCE. (REF # [id number] ) BRINGS IN MEDICATIONS WHICH IS APPROPRIATE FOR WHAT WAS DISPENSED. PROCEDURE CODES FA211 ESTABILISHED PATIENT [facility] CHARGE DISPOSITION & COMMUNICATION FOLLOW UP 2 MONTHS (REASON: NECK PAIN ) ELECTRONICALLY SIGNED BY ANIL TURPIN ON 06/05/2020 AT 09:00 AM EDT DISCLAIMER : THIS IS A VISIT SUMMARY EXTRACTED FROM THE [employer] CHART. IT IS NOT A COPY OF THE [employer] PROGRESS NOTE. MTDD
== END ==
LOC: M PAIN 09:00
PROVIDERS: ATTEND Family Medicine
DX: M54.2 Cervicalgia (principal); G89.29 Other chronic pain; G47.00 Insomnia, unspecified; J45.50 Severe persistent asthma, uncomplicated; K21.9 Gastro-esophageal reflux disease without esophagitis; M79.7 Fibromyalgia; Z86.59 Personal history of other mental and behavioral disorders; Z88.5 Allergy status to narcotic agent; Z79.82 Long term (current) use of aspirin; Z79.51 Long term (current) use of inhaled steroids; Z79.84 Long term (current) use of oral hypoglycemic drugs; Z79.899 Other long term (current) drug therapy

== ENCOUNTER → 2020-07-01 | Outpatient (CLI) | payer OTHER ==
--- NOTE | 2020-07-03 02:06 | ECWPNPC ---
PATIENT NAME: ZAHIDA RICHMOND : 1965 GENDER: FEMALE VISIT DATE: 07/01/2020 DISCHARGE DATE: 07/01/201422 VISIT LOCKED DATE TIME: PHYSICIAN: JORGE OBRIEN PHYSICIAN PAGER NO: ACTIVE RESOURCE: JORGE OBRIEN REASON FOR APPOINTMENT 1. NECK PAIN HISTORY OF PRESENT ILLNESS GENERAL: 54 YEAR OLD FEMALE IN FOR CHRONIC PAIN FOLLOW-UP. PATIENT RATES HER PAIN CURRENTLY AT A 10 OUT OF 10 AND DESCRIBES IT SHARP AND LASTS ALL DAY. PATIENT DOES NOT FEEL HER LYRICA IS CURRENTLY COVERING HER PAIN AND WOULD LIKE TO DISCUSS OTHER OPTIONS. FALL RISK SCREENING: SCREENING : NO FALLS REPORTED IN THE LAST YEAR. PAIN SCREENING: PATIENT HAS A COMPLAINT OF ACUTE OR CHRONIC PAIN :YES LOCATION OF PAIN:NECK INTENSITY OF PAIN (SCALE OF 1 TO 10):10 WHAT DOES YOUR PAIN FEEL LIKE:SHARP DURATION:CONTINOUS, CONSTANT, ALL DAY PAIN IS INCREASED BY:ACTIVITIES PAIN IS DECREASED BY:OTHERS " NOTHING WORKS " NURSING NOTE: -. PAIN CENTER INTAKE QUESTIONS: DO YOU HAVE A HISTORY OF MRSA? :NO DO YOU TAKE A BLOOD THINNERS? :YES HYDROXYCHLOROQUINE DO YOU HAVE ANY BLEEDING DISORDERS? :NO ANY NEW NUMBNESS OR WEAKNESS IN YOUR LEGS OR ARMS? :YES PAIN GOES DOWN INTO RIGHT ARMS ANY PACEMAKER,DEFIBRILLATOR, OR DORSAL COLUMN STIMULATOR? :NO DO YOU HAVE ANY RASHES OR OPEN SORES? :NO ARE YOU ALLERGIC TO IV DYE? :NO ARE YOU DIABETIC? :YES PRE DIABETIC ANY NEW PROBLEMS WITH YOUR MEDICATIONS? :NO HAVE YOU RECEIVED A VACCINE IN THE PAST 30 DAYS? :NO DO YOU PLAN TO RECEIVE A VACCINE IN THE NEXT 21 DAYS? :NO DO YOU NEED ANY PRESCRIPTION? :NO DO YOU TAKE ANY IMMUNOSUPPRESSIVE MEDICATIONS? :NO DO YOU HAVE ANY KIDNEY OR LIVER DISEASE? :NO IS THERE A CHANCE YOU COULD BE ? :NO ARE YOU BREAST FEEDING? :NO CURRENT MEDICATIONS TAKING HYDROCORTISONE ACETATE 1 % CREAM 1 APPLICATION EXTERNALLY ONCE A DAY TAKING TIZANIDINE HCL 4 MG TABLET 1 TABLET NEEDED ORALLY TWICE DAILY NEEDED TAKING CETIRIZINE HCL 10 MG TABLET 1 TABLET NEEDED ORALLY ONCE A DAY TAKING SINGULAIR 10 MG TABLET 1 TABLET ORALLY ONCE A DAY TAKING AIRDUO RESPICLICK 232/14 232-14 MCG/ACT AEROSOL POWDER BREATH ACTIVATED 1 PUFF INHALATION TWICE A DAY TAKING VENLAFAXINE HCL ER 37.5 MG CAPSULE EXTENDED RELEASE 24 HOUR 1 CAPSULE WITH FOOD ORALLY ONCE A DAY TAKING ASPIRIN ADULT LOW STRENGTH 81 MG TABLET DELAYED RELEASE 1 TABLET ORALLY ONCE A DAY TAKING LOSARTAN POTASSIUM 50 MG TABLET 1 TABLET ORALLY BID TAKING ERGOCALCIFEROL 41924 UNIT CAPSULE 1 CAPSULE ORALLY EVERY OTHER WEEK TAKING ATORVASTATIN CALCIUM 40 MG TABLET 1 TABLET ORALLY ONCE A DAY TAKING OMEGA 3 1000 MG CAPSULE 2 CAPSULE ORALLY ONCE A DAY TAKING ZETIA 10 MG TABLET 1 TABLET ORALLY ONCE A DAY TAKING ROPINIROLE HCL ER 2 MG TABLET EXTENDED RELEASE 24 HOUR 1 TABLET ORALLY NEEDED ONCE A DAY AT BEDTIME TAKING FLUCONAZOLE 150 MG TABLET 1 TABLET ORALLY DAILY TAKING INCRUSE ELLIPTA 62.5 MCG/INH AEROSOL POWDER BREATH ACTIVATED 1 PUFF INHALATION ONCE A DAY TAKING DUPIXENT 300 MG/2ML SOLUTION PREFILLED SYRINGE 2 ML SUBCUTANEOUS 1 SHOT EVERY 2WEEKS, NOTES: ASTHMA TAKING TYLENOL 8 HOUR 650 MG TABLET EXTENDED RELEASE 2 TABLETS NEEDED ORALLY EVERY 8 HRS TAKING GLUCOMETER (VERIO IQ) 1 GLUCOMETER DIRECTED E11.9 DAILY TAKING ADVOCATE LANCETS 1 MISCELLANEOUS DIRECTED E11.9 DAILY TAKING GLUCOSE STRIP (VERIO IQ) 1 DIRECTED E11.9 DAILY TAKING ALBUTEROL 90 MCG/ACT AEROSOL SOLUTION 2 PUFFS INHALATION BID NEEDED TAKING PIMECROLIMUS 1 % CREAM 1 APPLICATION EXTERNALLY TWICE A DAY FOR FACE AND EYELIDS TAKING LYRICA 100 MG CAPSULE 1 CAPSULE ORALLY TWICE A DAY, NOTES: NOT TAKING AT THIS TIME TAKING METFORMIN HCL ER 500 MG TABLET EXTENDED RELEASE 24 HOUR 1 TABLET WITH EVENING MEAL ORALLY ONCE A DAY TAKING ELIDEL 1 % CREAM 1 APPLICATION EXTERNALLY TWICE A DAY FOR FACIAL AND EYELID RASH TAKING TRAZODONE HCL 100 MG TABLET 1 TABLET AT BEDTIME ORALLY ONCE A DAY TAKING ZOLPIDEM TARTRATE 10 MG TABLET 1 TABLET AT BEDTIME NEEDED ORALLY ONCE A DAY TAKING ALCLOMETASONE DIPROPIONATE 0.05 % CREAM 1 APPLICATION EXTERNALLY TWICE A DAY FOR UP TO FIVE DAYS ONLY WITH [employer]ARE [employer] FOR RASH ON FACE TAKING FLUTICASONE PROPIONATE 0.05 % CREAM 1 APPLICATION EXTERNALLY ONCE A DAY TAKING HYDROXYCHLOROQUINE 200 MG 1 TAB ORALLY BID, NOTES: HAS NOT TAKEN SINCE MAY 2020 TAKING OMEPRAZOLE 40 MG CAPSULE DELAYED RELEASE 1 CAPSULE ORALLY ONCE A DAY NOT-TAKING MELOXICAM 15 MG TABLET 1 TABLET ORALLY ONCE A DAY PRN PAIN NOT-TAKING MUPIROCIN 2 % OINTMENT 1 APPLICATION EXTERNALLY BID NEEDED NOT-TAKING DICLOFENAC SODIUM 1 % GEL 2 GRAMS TO AFFECTED TRANSDERMAL FOUR TIMES DAILY NEEDED NOT-TAKING SKELAXIN 800 MG TABLET 1 TABLET ORALLY BID NOT-TAKING SKELAXIN 800 MG TABLET 1 TABLET ORALLY TWO TIMES A DAY AFTER MEALS NOT-TAKING CYCLOBENZAPRINE HCL 5 MG TABLET 1 TABLET AT BEDTIME NEEDED ORALLY ONCE A DAY MEDICATION LIST REVIEWED AND RECONCILED WITH THE PATIENT PAST MEDICAL HISTORY FATTY LIVER RHEUMATIC FEVER AT 7 MITRAL VALVE STENOSIS -ECHO 10/[address] CORDON EF 65%. NORMAL ECHO S ANNUAL VALVE DEFECT CTD ? SLE (LUPUS) HYPERLIPIDEMIA INSOMNIA PTSD ASTHMA, SEVERE PERSISTENT- ON XOLAIR- DR. SIU POSITIONAL SLEEP APNEA AHI 6.2 HYPERTENSION DM TYPE 2 - STATES PRE-DIABETES GERD FIBROMYALGIA DJD L4-S1- CT SPINE - 02/2018 COLONOSCOPY 08/2018- HYPERPLASTIC POLYP REPEAT 08/2017 DR. FERNANDES ALLERGIES VICODIN: ITCHING - ALLERGY CODEINE PHOSPHATE (FOR ALLERGIES USE ONLY): ITCHING - ALLERGY PERCOCET: STOMACH PAIN - SIDE EFFECTS SOCIAL HISTORY GENERAL: TOBACCO USE ARE YOU A:NEVER SMOKER LATEX QUESTIONNAIRE LATEX ALLERGY : HAVE YOU EVER DEVELOPED ANY TYPE OF REACTION AFTER HANDLING LATEX PRODUCTS SUCH RUBBER GLOVES, CONDOMS, DIAPHRAGMS, BALLOONS, SOCKS, OR UNDERWEAR?NO LATEX ALLERGY : HAVE YOU EVER DEVELOPED ANY TYPE OF REACTION DURING OR AFTER DENTAL APPOINTMENT, VAGINAL/RECTAL EXAMINATION, SURGICAL PROCEDURE, OR ANY OTHER EXPOSURE?NO LATEX RISK : HAVE YOU EVER HAD ANY DIFFICULTY BREATHING OR HIVES AFTER EATING OR HANDLING ANY FRUITS, OR VEGETABLES; SUCH KIWI, BANANAS, STONE FRUITS, OR CHESTNUTSNO LATEX RISK : DO YOU HAVE A PREVIOUS PERSONAL HISTORY OF MORE THAN NINE SURGERIES, SPINA BIFIDA, OR REPEATED CATHERIZATIONS? NO LATEX RISK : ARE YOU FREQUENTLY EXPOSED TO LATEX PRODUCTS IN YOUR OCCUPATION?NO DATE ASKED : 07/01/2020 ALCOHOL USE: NO. ALCOHOL SCREENING DID YOU HAVE A DRINK CONTAINING ALCOHOL IN THE PAST YEAR?NO POINTS0 INTERPRETATIONNEGATIVE RECREATIONAL DRUG USE DRUG USE?NO * PATIENT USES CBD DROPS NEEDED FOR PAIN CAFFEINE CAFFEINE USE?NO SEXUAL HX HAD SEX IN THE LAST 12 MONTHS (VAGINAL, ORAL, OR ANAL)?NO HAVE YOU EVER HAD AN STD?NO HIV / HEP-C SCREENING HIV TEST OFFERED TO PATIENT:YES DATE OFFERED:01/08/2018 TEST ACCEPTED:YES HEP-C TEST OFFERED TO PATIENT:YES DATE OFFERED:01/08/2018 TEST ACCEPTED:YES BROCHURE PROVIDED TO PATIENTYES JEWISH [id number] LANGUAGES SPOKEN:INDONESIAN EDUCATION LEVEL OF EDUCATION:FINISHED HIGH SCHOOL LEARNING BARRIERS / SPECIAL NEEDS CHANGE FROM LAST VISIT?NO BARRIERS TO LEARNING?NO HEARING IMPAIRED?NO VISION IMPAIRED?YES :CORRECTIVE LENSES COGNITIVELY IMPAIRED?NO READINESS TO LEARN?YES LEARNING PREFERENCES?NO LEARNING CAPABILITIES PRESENT?YES EMOTIONAL BARRIERS?NO SPECIAL DEVICES?NO HAND GLUER AND SLICER NEEDED?NO DOMESTIC VIOLENCE DO YOU FEEL SAFE IN YOUR ENVIRONMENT?YES OCCUPATION: DISABLED. DIET: REGULAR. EXERCISE: NONE. MARITAL STATUS: . OTHERS AT HOME: SPOUSE 4 CHILDREN. - HAS THE PATIENT BEEN EDUCATED REGARDING HIS/HER PLAN OF CARE?YES HAS THE PATIENT BEEN EDUCATED REGARDING PAIN, THE RISK FOR PAIN, THE IMPORTANCE OF EFFECTIVE PAIN MANAGEMENT, AND THE PAIN ASSESSMENT PROCESS?YES ADVANCE DIRECTIVE ADVANCE DIRECTIVE DISCUSSED WITH PATIENT:YES PATIENT HAS NO ADVANCED DIRECTIVES. HCP INFORMATION GIVEN, PATIENT DECLINED ASSISTANCE WITH PAPERWORK. REVIEW OF SYSTEMS CONSTITUTIONAL: ANY RECENT FEVER NO . CHILLS NO . WEIGHT CHANGE OF UNKNOWN REASONS NO . GASTROENTEROLOGY: NEW UNEXPLAINABLE CHANGES IN BOWEL CONTROL NO . CONSTIPATION NO . GENITOURINARY: ANY NEW CHANGE IN BLADDER CONTROL? NO . NEUROLOGY: NEW ONSET DIZZINESS OR NEUROLOGICAL CHANGES NOT MENTIONED NO . NEW NUMBNESS OR PAIN PATTERNS NOT MENTIONED AND PERTINENT TO TODAY'S VISIT NO . CARDIOLOGY: NEW CHEST PRESSURE NO . PATIENT DENIES NO . RESPIRATORY: UNEXPLAINABLE COUGH NO . NEW SHORTNESS OF BREATH NO . VITAL SIGNS WT 201.2 LBS, HT 64 IN, BMI 34.53 INDEX, BP 137/82 MM HG, HR 77 /MIN, RR 18 /MIN, TEMP 96.3 F, OXYGEN SAT % 96%, NA INITIALS SC 13:50. EXAMINATION GENERAL EXAMINATION: GENERALNO ACUTE DISTRESS, WELL NOURISHED AND HYDRATED. PSYCHAPPROPRIATE MOOD AND AFFECT . LUNGS:CLEAR TO AUSCULTATION BILATERALLY, NO WHEEZES, RHONCHI, RALES. HEART:NO MURMURS, REGULAR RATE AND RHYTHM. 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 GIVEN PRESENTING SYMPTOMS RECOMMEND STARTING TRAMADOL 50 MG DAILY NEEDED FOR PAIN WITH FOLLOW-UP IN ONE MONTH TO DETERMINE EFFICACY OF TREATMENT. PATIENT WILL HAVE A U TOX PERFORMED TODAY AND SIGN NARCOTIC AGREEMENT. PATIENT HAS EXPRESSED UNDERSTANDING OF AND WAS IN AGREEMENT WITH TREATMENT PLAN. GIVEN TIME TO ASK QUESTIONS AND EXPRESS CONCERNS. ISTOP REGISTRY REVIEWED AND DEMONSTRATES COMPLLIANCE. (REF #[id number] ) PRINTED INFORMATION ON TRAMADOL FOR PATIENT ColbyTHANH MORENO. DISPOSITION & COMMUNICATION FOLLOW UP 4 WEEKS (REASON: NEW MED) ELECTRONICALLY SIGNED BY ANIL TURPIN ON 07/02/2020 AT 08:53 AM EDT DISCLAIMER : THIS IS A VISIT SUMMARY EXTRACTED FROM THE [email or web address] CHART. IT IS NOT A COPY OF THE [email or web address] PROGRESS NOTE. MTDD
== END ==
LOC: M PAIN 13:45
PROVIDERS: ATTEND Family Medicine
DX: M47.22 Other spondylosis with radiculopathy, cervical region (principal); G89.29 Other chronic pain; R73.03 Prediabetes; G47.00 Insomnia, unspecified; J45.50 Severe persistent asthma, uncomplicated; K21.9 Gastro-esophageal reflux disease without esophagitis; M79.7 Fibromyalgia; Z88.5 Allergy status to narcotic agent; Z79.51 Long term (current) use of inhaled steroids; Z79.82 Long term (current) use of aspirin; Z79.84 Long term (current) use of oral hypoglycemic drugs; Z79.899 Other long term (current) drug therapy

== ENCOUNTER → 2020-07-22 | Outpatient (CLI) | payer OTHER ==
[2020-07-22 13:44] LABS: BASO % 0.5 % (0.0-1.0); EOS # 0.3 10^3/uL (0.0-0.5); EOS % 5.2 % (0.0-3.0); HEMATOCRIT 39.2 % (36.0-47.0); HEMOGLOBIN 12.3 g/dl (12.0-15.5); LYMPH # 2.4 10^3/uL (1.5-5.0); LYMPH % 40.3 % (24.0-44.0); MEAN CORPUSCULAR HEMOGLOBIN 27.8 pg (27.0-33.0); MEAN CORPUSCULAR HGB CONC 31.4 g/dl (32.0-36.5); MEAN CORPUSCULAR VOLUME 88.5 fl (80.0-96.0); MONO # 0.5 10^3/uL (0.0-0.8); MONO % 7.7 % (2.0-8.0); NEUTROPHILS # 2.7 10^3/uL (1.5-8.5); NEUTROPHILS % 46.1 % (36.0-66.0); PLATELET COUNT, AUTOMATED 182 10^3/uL (150-450); RED BLOOD COUNT 4.43 10^6/uL (4.00-5.40)
[2020-07-22 14:16] LABS: ALBUMIN 3.8 GM/DL (3.2-5.2); ALT/SGPT 33 U/L (12-78); BILIRUBIN,TOTAL 0.3 MG/DL (0.2-1.0); BLOOD UREA NITROGEN 17 MG/DL (7-18); CALCIUM LEVEL 8.9 MG/DL (8.5-10.1); CARBON DIOXIDE LEVEL 30 MEQ/L (21-32); CHLORIDE LEVEL 108 MEQ/L (98-107); COMPLEMENT C3 108 MG/DL (90-180); COMPLEMENT C4 27 MG/DL (10-40); CREATININE FOR GFR 0.85 MG/DL (0.55-1.30); GLOMERULAR FILTRATION RATE > 60.0 (>51); GLUCOSE, FASTING 100 MG/DL (70-100); POTASSIUM SERUM 4.2 MEQ/L (3.5-5.1); SODIUM LEVEL 141 MEQ/L (136-145)
[2020-07-22 14:18] LABS: ERYTHROCYTE SEDIMENTATION RATE 35 mm/hr (0-30)
== END ==
LOC: M PLALAB 10:02
PROVIDERS: ATTEND Internal Medicine Rheumatology
DX: M32.9 Systemic lupus erythematosus, unspecified (principal)

== ENCOUNTER → 2020-08-05 | Outpatient (CLI) | payer OTHER ==
--- NOTE | 2020-08-05 17:05 | REPVR ---
PROCEDURE INFORMATION: Exam: MR Cervical Spine Without Contrast Exam date and time: 08/05/2020 3:46 PM Age: 55 years old Clinical indication: Neck pain; Additional info: Spondylosis w/ radiculopathy TECHNIQUE: Imaging protocol: Multiplanar magnetic resonance images of the cervical spine without contrast. COMPARISON: CT Spine,cervical w/o contrast 10/26/2019 8:44 PM FINDINGS: Vertebrae: No compression deformity. No destructive osseous disease identified. Spinal cord: See below, C5-C6 and C6-C7. No abnormal cord signal identified. C2-C3: No significant disc disease. No significant spinal stenosis. C3-C4: No significant disc disease. No significant spinal stenosis. C4-C5: No significant disc disease. No significant spinal stenosis. C5-C6: Left paracentral disc extrusion flattens the left ventral cord contour, causing moderate central stenosis, with mild left neural foraminal stenosis. Slight mass effect upon the exiting left C6 nerve root. C6-C7: Right lateral disc extrusion moderately narrowing the central canal, causing moderate to severe right neural foraminal stenosis. There is slight flattening of the right ventral cord contour at this level. C7-T1: No significant disc disease. No significant spinal stenosis. Vertebral arteries: Expected flow voids in the vertebral arteries. IMPRESSION: Disc extrusions at C5-C6 and C6-C7, as above, causing moderate central stenosis and slight flattening of the ventral cord contour at these levels. Neural foraminal stenosis on the left at C5-C6, on the right at C6-C7, as above. Electronically signed by: Rose Marie Vines On 08/05/2020 17:05:15 PM
== END ==
LOC: M PLARAD 14:37
PROVIDERS: ATTEND Nurse Practitioner Family
DX: M50.221 Other cervical disc displacement at C4-C5 level (principal); M50.223 Other cervical disc displacement at C6-C7 level; M48.02 Spinal stenosis, cervical region; M47.22 Other spondylosis with radiculopathy, cervical region

== ENCOUNTER → 2020-09-16 | Outpatient (CLI) | payer OTHER ==
[2020-09-16 13:49] LABS: BASO # 0.1 10^3/uL (0.0-0.2); BASO % 0.7 % (0.0-1.0); EOS # 0.8 10^3/uL (0.0-0.5); EOS % 11.1 % (0.0-3.0); HEMATOCRIT 38.6 % (36.0-47.0); HEMOGLOBIN 12.1 g/dl (12.0-15.5); LYMPH # 2.7 10^3/uL (1.5-5.0); LYMPH % 38.6 % (24.0-44.0); MEAN CORPUSCULAR HGB CONC 31.3 g/dl (32.0-36.5); MEAN CORPUSCULAR VOLUME 89.4 fl (80.0-96.0); MONO # 0.5 10^3/uL (0.0-0.8); MONO % 6.7 % (2.0-8.0); NEUTROPHILS % 42.8 % (36.0-66.0); PLATELET COUNT, AUTOMATED 171 10^3/uL (150-450); RED BLOOD COUNT 4.32 10^6/uL (4.00-5.40)
[2020-09-16 14:14] LABS: HEMOGLOBIN A1c 5.6 %
[2020-09-16 14:30] LABS: ALBUMIN 3.7 GM/DL (3.2-5.2); ALT/SGPT 29 U/L (12-78); BILIRUBIN,TOTAL 0.3 MG/DL (0.2-1.0); BLOOD UREA NITROGEN 18 MG/DL (7-18); CARBON DIOXIDE LEVEL 32 MEQ/L (21-32); CHLORIDE LEVEL 108 MEQ/L (98-107); CHOLESTEROL LEVEL 97 MG/DL (<200); CHOLESTEROL RISK RATIO 3.031 (<5); FREE T4 0.75 NG/DL (0.76-1.46); GLOMERULAR FILTRATION RATE > 60.0 (>51); GLUCOSE, FASTING 87 MG/DL (70-100); HDL CHOLESTEROL 32 MG/DL (>40); LDL CHOLESTEROL 22 MG/DL (<100); NON-HDL-C 65 MG/DL; POTASSIUM SERUM 5.2 MEQ/L (3.5-5.1); SODIUM LEVEL 144 MEQ/L (136-145); THYROID STIMULATING HORMONE 0.935 uIU/ML (0.358-3.740); TOTAL PROTEIN 7.7 GM/DL (6.4-8.2); TRIGLYCERIDES LEVEL 217 MG/DL (<150)
[2020-09-16 14:31] LABS: VITAMIN B12 LEVEL 1087 PG/ML (247-911)
[2020-09-16 14:32] LABS: FOLATE 19.8 NG/ML (>5.4)
== END ==
LOC: M PLALAB 10:58
PROVIDERS: ATTEND Nurse Practitioner Family
DX: I10 Essential (primary) hypertension (principal); E53.8 Deficiency of other specified B group vitamins; E11.9 Type 2 diabetes mellitus without complications

== ENCOUNTER → 2020-10-16 | Outpatient (CLI) | payer OTHER ==
--- NOTE | 2020-10-16 13:28 | REPVR ---
PROCEDURE INFORMATION: Exam: CT Head Without Contrast Exam date and time: 10/16/2020 1:07 PM Age: 55 years old Clinical indication: Altered mental status/memory loss TECHNIQUE: Imaging protocol: Computed tomography of the head without contrast. Radiation optimization: All CT scans at this facility use at least one of these dose optimization techniques: automated exposure control; mA and/or kV adjustment per patient size (includes targeted exams where dose is matched to clinical indication); or iterative reconstruction. COMPARISON: CT Head without contrast 10/26/2019 8:44 PM FINDINGS: Brain: There is no acute intracranial hemorrhage. No extra-axial fluid collection. No evidence of acute infarct. Ricardo white differentiation is intact. There is no evidence of mass. There is no mass effect or midline shift. Cerebral ventricles: No ventriculomegaly. Paranasal sinuses: There is a small retention cyst or polyp in left sphenoid sinus. Mastoid air cells: No significant mastoid effusion. Bones/joints: No acute fracture. Soft tissues: Unremarkable as visualized. IMPRESSION: No evidence of acute intracranial abnormality. No acute hemorrhage. No evidence of acute infarct or mass. Electronically signed by: Rebeca Peter On 10/16/2020 13:28:02 PM
== END ==
LOC: M RAD 13:00
PROVIDERS: ATTEND Nurse Practitioner Family
DX: R41.3 Other amnesia (principal)

== ENCOUNTER → 2020-10-19 | Outpatient (CLI) | payer OTHER ==
[~2020-10-19] MED LIST changes: -CLIN150C15 PO; +CLIN150C17 PO; +DONE5TAB86 PO; -DONETAB5 PO; -FLUC100T; +FLUC100T3; +LOSA50TA28 PO; -LOSA50TA88 PO; -OMEP-221 PO; +OMEP40CA5 PO
[2020-10-19 15:42] LABS: APPEARANCE, URINE HAZY (CLEAR); BACTERIA, URINE AUTO NEGATIVE (NEGATIVE); BILIRUBIN, URINE AUTO NEGATIVE (NEGATIVE); BLOOD, URINE BLOOD NEGATIVE (NEGATIVE); COLOR, URINE YELLOW (YELLOW); GLUCOSE, URINE (UA) AUTO NEGATIVE (NEGATIVE); KETONE, URINE AUTO NEGATIVE (NEGATIVE); LEUKOCYTE ESTERASE, URINE AUTO TRACE (NEGATIVE); MUCUS, URINE SMALL (NEGATIVE); NITRITE, URINE AUTO NEGATIVE (NEGATIVE); PROTEIN, URINE AUTO 1+ mg/dL (NEGATIVE); RBC, URINE AUTO 2 /HPF (0-3); SPECIFIC GRAVITY URINE AUTO 1.031 (1.002-1.035); SQUAMOUS EPITHELIAL CELL UR AU 1 /HPF (0-6); UROBILINOGEN, URINE AUTO 0.2 mg/dL (0.0-2.0); WBC, URINE AUTO 7 /HPF (0-3)
[2020-10-19 15:44] LABS: BASO % 0.6 % (0.0-1.0); EOS # 0.5 10^3/uL (0.0-0.5); EOS % 7.7 % (0.0-3.0); HEMATOCRIT 37.9 % (36.0-47.0); HEMOGLOBIN 12.3 g/dl (12.0-15.5); LYMPH # 2.6 10^3/uL (1.5-5.0); MEAN CORPUSCULAR HEMOGLOBIN 28.3 pg (27.0-33.0); MEAN CORPUSCULAR HGB CONC 32.5 g/dl (32.0-36.5); MEAN CORPUSCULAR VOLUME 87.3 fl (80.0-96.0); MONO # 0.4 10^3/uL (0.0-0.8); MONO % 6.2 % (2.0-8.0); NEUTROPHILS # 2.7 10^3/uL (1.5-8.5); NEUTROPHILS % 43.3 % (36.0-66.0); PLATELET COUNT, AUTOMATED 154 10^3/uL (150-450); RED BLOOD COUNT 4.34 10^6/uL (4.00-5.40); WHITE BLOOD COUNT 6.3 10^3/uL (4.0-10.0)
[2020-10-19 15:49] LABS: ALT/SGPT 44 U/L (12-78); BILIRUBIN,TOTAL 0.4 MG/DL (0.2-1.0); BLOOD UREA NITROGEN 17 MG/DL (7-18); CALCIUM LEVEL 9.3 MG/DL (8.5-10.1); CARBON DIOXIDE LEVEL 27 MEQ/L (21-32); CHLORIDE LEVEL 107 MEQ/L (98-107); COMPLEMENT C3 126 MG/DL (90-180); COMPLEMENT C4 27 MG/DL (10-40); CREATININE FOR GFR 0.82 MG/DL (0.55-1.30); GLOMERULAR FILTRATION RATE > 60.0 (>51); GLUCOSE, FASTING 90 MG/DL (70-100); POTASSIUM SERUM 4.6 MEQ/L (3.5-5.1); SODIUM LEVEL 140 MEQ/L (136-145); TOTAL PROTEIN 8.2 GM/DL (6.4-8.2)
[2020-10-19 16:08] LABS: ERYTHROCYTE SEDIMENTATION RATE 33 mm/hr (0-30)
[2020-10-19 16:22] LABS: TOTAL PROTEIN,RANDOM URINE 41.1 MG/DL (0.0-12.0)
[2020-10-25 19:11] LABS: ANTI DS-DNA AB Negative (Negative); ANTI SCLERODERMA ANTIBODIES <0.2 AI (0.0-0.9)
== END ==
LOC: M PLALAB 12:47
PROVIDERS: ATTEND Internal Medicine Rheumatology
DX: M32.9 Systemic lupus erythematosus, unspecified (principal); I73.00 Raynaud's syndrome without gangrene

== ENCOUNTER → 2021-04-29 | Outpatient (CLI) | payer OTHER ==
[2021-04-29 14:13] LABS: BASO % 0.7 % (0.0-1.0); EOS # 0.6 10^3/uL (0.0-0.5); EOS % 10.1 % (0.0-3.0); HEMATOCRIT 36.3 % (36.0-47.0); HEMOGLOBIN 11.7 g/dl (12.0-15.5); LYMPH % 37.1 % (24.0-44.0); MEAN CORPUSCULAR HEMOGLOBIN 28.3 pg (27.0-33.0); MEAN CORPUSCULAR HGB CONC 32.2 g/dl (32.0-36.5); MEAN CORPUSCULAR VOLUME 87.7 fl (80.0-96.0); MONO # 0.4 10^3/uL (0.0-0.8); MONO % 7.5 % (2.0-8.0); NEUTROPHILS # 2.4 10^3/uL (1.5-8.5); NEUTROPHILS % 44.1 % (36.0-66.0); PLATELET COUNT, AUTOMATED 187 10^3/uL (150-450); RED BLOOD COUNT 4.14 10^6/uL (4.00-5.40); WHITE BLOOD COUNT 5.5 10^3/uL (4.0-10.0)
[2021-04-29 14:40] LABS: MALB URINE SIEMENS 39.2 MG/L; MAU/CREAT RATIO 25.7 MCG/MG (0.0-30.0)
[2021-04-29 15:38] LABS: ALBUMIN 3.7 GM/DL (3.2-5.2); ALT/SGPT 17 U/L (12-78); BILIRUBIN,TOTAL 0.3 MG/DL (0.2-1.0); BLOOD UREA NITROGEN 12 MG/DL (7-18); CARBON DIOXIDE LEVEL 31 MEQ/L (21-32); CHLORIDE LEVEL 107 MEQ/L (98-107); CHOLESTEROL LEVEL 184 MG/DL (<200); CREATININE FOR GFR 0.84 MG/DL (0.55-1.30); GLOMERULAR FILTRATION RATE > 60.0 (>51); GLUCOSE, FASTING 95 MG/DL (70-100); HDL CHOLESTEROL 40 MG/DL (>40); LDL CHOLESTEROL 109 MG/DL (<100); NON-HDL-C 144 MG/DL; POTASSIUM SERUM 4.5 MEQ/L (3.5-5.1); SODIUM LEVEL 142 MEQ/L (136-145); TOTAL PROTEIN 7.7 GM/DL (6.4-8.2); TRIGLYCERIDES LEVEL 176 MG/DL (<150)
[2021-04-29 15:40] LABS: TOTAL 25(OH) VITAMIN D 47.6 NG/ML (30.0-100.0)
[2021-04-29 19:05] LABS: HEMOGLOBIN A1c 5.4 %
== END ==
LOC: M PLALAB 11:57
PROVIDERS: ATTEND Nurse Practitioner Family
DX: E78.5 Hyperlipidemia, unspecified (principal); E11.9 Type 2 diabetes mellitus without complications; I10 Essential (primary) hypertension

== ENCOUNTER 2021-07-07 18:38 | Emergency (ER) | payer OTHER ==
[~2021-07-07] VITALS: Ht 162.6 cm; Wt 86.9 kg
[2021-07-07] MEDS ORDERED: DUPI300I (18:50)
[2021-07-07] MEDS ORDERED: QUET1TAB17 (18:50)
[2021-07-07] MEDS ORDERED: ALBU8.5H (18:50)
[2021-07-07] MEDS ORDERED: AMOX875T2 (18:50)
[2021-07-07] MEDS ORDERED: ERGO500029 (18:50)
[2021-07-07 23:10] LABS: BASO % 0.4 % (0.0-1.0); EOS # 0.8 10^3/uL (0.0-0.5); EOS % 8.5 % (0.0-3.0); HEMATOCRIT 33.7 % (36.0-47.0); HEMOGLOBIN 10.8 g/dl (12.0-15.5); LYMPH # 2.4 10^3/uL (1.5-5.0); LYMPH % 24.2 % (24.0-44.0); MEAN CORPUSCULAR HEMOGLOBIN 28.1 pg (27.0-33.0); MEAN CORPUSCULAR VOLUME 87.8 fl (80.0-96.0); MONO # 0.8 10^3/uL (0.0-0.8); MONO % 8.1 % (2.0-8.0); NEUTROPHILS # 5.7 10^3/uL (1.5-8.5); NEUTROPHILS % 58.3 % (36.0-66.0); PLATELET COUNT, AUTOMATED 203 10^3/uL (150-450); RED BLOOD COUNT 3.84 10^6/uL (4.00-5.40); WHITE BLOOD COUNT 9.8 10^3/uL (4.0-10.0)
[2021-07-07 23:23] LABS: INR 0.99; PROTHROMBIN TIME 13.5 SECONDS (12.7-14.5)
[2021-07-07 23:24] LABS: PARTIAL THROMBOPLASTIN TIME 37.1 SECONDS (25.9-37.0)
[2021-07-08 00:01] LABS: ALBUMIN 3.1 GM/DL (3.2-5.2); ALT/SGPT 21 U/L (12-78); BILIRUBIN,DIRECT < 0.1 MG/DL (0.0-0.2); BILIRUBIN,TOTAL 0.2 MG/DL (0.2-1.0); BLOOD UREA NITROGEN 13 MG/DL (7-18); CALCIUM LEVEL 8.5 MG/DL (8.5-10.1); CARBON DIOXIDE LEVEL 29 MEQ/L (21-32); CHLORIDE LEVEL 109 MEQ/L (98-107); GLOMERULAR FILTRATION RATE > 60.0 (>51); GLUCOSE, FASTING 106 MG/DL (70-100); LIPASE 157 U/L (73-393); POTASSIUM SERUM 4.5 MEQ/L (3.5-5.1); SODIUM LEVEL 141 MEQ/L (136-145); TOTAL PROTEIN 7.7 GM/DL (6.4-8.2)
[2021-07-08 00:16] VITALS: BP 142/90
[2021-07-08] MEDS ORDERED: FLON1SPR NARES (00:52)
== END 2021-07-08 01:07 | disposition home or self-care (01) ==
LOC: M ED 18:38
DX: R04.0 Epistaxis (principal); J34.89 Other specified disorders of nose and nasal sinuses; I10 Essential (primary) hypertension; K76.0 Fatty (change of) liver, not elsewhere classified; J44.9 Chronic obstructive pulmonary disease, unspecified; K21.9 Gastro-esophageal reflux disease without esophagitis; M79.7 Fibromyalgia; F41.9 Anxiety disorder, unspecified; F32.A Depression, unspecified; F43.10 Post-traumatic stress disorder, unspecified; F90.9 Attention-deficit hyperactivity disorder, unspecified type; Z98.51 Tubal ligation status; M32.9 Systemic lupus erythematosus, unspecified; Z88.5 Allergy status to narcotic agent; Z79.899 Other long term (current) drug therapy

== ENCOUNTER → 2021-07-13 | Outpatient (CLI) | payer OTHER ==
[~2021-07-13] MED LIST changes: +ALBU8.5H; +AMOX875T2; +DUPI300I; +ERGO500029; +FLON1SPR NARES; +QUET1TAB17
[2021-07-13 13:40] LABS: BASO % 0.5 % (0.0-1.0); EOS # 0.6 10^3/uL (0.0-0.5); EOS % 7.5 % (0.0-3.0); HEMOGLOBIN 11.8 g/dl (12.0-15.5); LYMPH # 3.1 10^3/uL (1.5-5.0); MEAN CORPUSCULAR HEMOGLOBIN 29.6 pg (27.0-33.0); MEAN CORPUSCULAR HGB CONC 32.8 g/dl (32.0-36.5); MEAN CORPUSCULAR VOLUME 90.5 fl (80.0-96.0); MONO # 0.8 10^3/uL (0.0-0.8); MONO % 9.4 % (2.0-8.0); NEUTROPHILS # 3.6 10^3/uL (1.5-8.5); NEUTROPHILS % 43.9 % (36.0-66.0); PLATELET COUNT, AUTOMATED 242 10^3/uL (150-450); RED BLOOD COUNT 3.98 10^6/uL (4.00-5.40); WHITE BLOOD COUNT 8.2 10^3/uL (4.0-10.0)
== END ==
LOC: M PLALAB 09:05
PROVIDERS: ATTEND Nurse Practitioner Family
DX: J40 Bronchitis, not specified as acute or chronic (principal)

== ENCOUNTER → 2021-09-30 | Outpatient (CLI) | payer OTHER ==
[~2021-09-30] MED LIST changes: +ALBU2.5V10 INH; -ALBU83IN INH
[2021-09-30 14:17] LABS: BASO % 0.2 % (0.0-1.0); EOS # 0.2 10^3/uL (0.0-0.5); HEMATOCRIT 35.8 % (36.0-47.0); HEMOGLOBIN 11.8 g/dl (12.0-15.5); LYMPH # 2.3 10^3/uL (1.5-5.0); LYMPH % 25.2 % (24.0-44.0); MEAN CORPUSCULAR HEMOGLOBIN 29.1 pg (27.0-33.0); MEAN CORPUSCULAR VOLUME 88.2 fl (80.0-96.0); MONO # 0.6 10^3/uL (0.0-0.8); MONO % 6.5 % (2.0-8.0); NEUTROPHILS # 6.1 10^3/uL (1.5-8.5); NEUTROPHILS % 65.6 % (36.0-66.0); PLATELET COUNT, AUTOMATED 191 10^3/uL (150-450); RED BLOOD COUNT 4.06 10^6/uL (4.00-5.40); WHITE BLOOD COUNT 9.3 10^3/uL (4.0-10.0)
[2021-09-30 14:46] LABS: ERYTHROCYTE SEDIMENTATION RATE 35 mm/hr (0-30)
[2021-09-30 14:57] LABS: ALBUMIN 3.5 GM/DL (3.2-5.2); ALT/SGPT 24 U/L (12-78); BILIRUBIN,TOTAL 0.2 MG/DL (0.2-1.0); BLOOD UREA NITROGEN 16 MG/DL (7-18); CALCIUM LEVEL 9.5 MG/DL (8.5-10.1); CARBON DIOXIDE LEVEL 28 MEQ/L (21-32); CHLORIDE LEVEL 109 MEQ/L (98-107); COMPLEMENT C3 127 MG/DL (90-180); COMPLEMENT C4 24 MG/DL (10-40); CREATININE FOR GFR 0.87 MG/DL (0.55-1.30); GLOMERULAR FILTRATION RATE > 60.0 (>51); GLUCOSE, FASTING 130 MG/DL (70-100); POTASSIUM SERUM 4.5 MEQ/L (3.5-5.1); SODIUM LEVEL 141 MEQ/L (136-145); TOTAL PROTEIN 7.5 GM/DL (6.4-8.2)
[2021-10-03 11:07] LABS: ANTI DS-DNA AB Negative (Negative)
== END ==
LOC: M PLALAB 08:33
PROVIDERS: ATTEND Internal Medicine Rheumatology
DX: M32.9 Systemic lupus erythematosus, unspecified (principal)

== ENCOUNTER → 2021-11-24 | Outpatient (REF) | payer OTHER ==
[2021-11-24 12:49] LABS: APPEARANCE, URINE MANUAL CLEAR (CLEAR); COLOR, URINE MANUAL YELLOW (YELLOW)
[2021-11-24 12:51] LABS: BILIRUBIN, URINE MANUAL NEGATIVE (NEGATIVE); BLOOD URINE MANUAL NEGATIVE (NEGATIVE); GLUCOSE, URINE (UA) MANUAL NEGATIVE (NEGATIVE); KETONE, URINE MANUAL NEGATIVE (NEGATIVE); LEUKOCYTE ESTERASE, URINE MAN TRACE (NEGATIVE); NITRITE, URINE MANUAL NEGATIVE (NEGATIVE); PROTEIN, URINE MANUAL NEGATIVE (NEGATIVE); UROBILINOGEN, URINE MANUAL NORMAL (NORMAL)
[2021-11-24 13:06] LABS: BACTERIA, URINE SMALL AMOUNT; HYALINE CAST, URINE 0-1 /lpf (0-1); MUCUS, URINE SMALL AMOUNT (NEGATIVE); SQUAMOUS EPITHELIAL CELL URINE SMALL AMOUNT /hpf (SMALL AMT)
[2021-11-24 13:10] LABS: TOTAL PROTEIN,RANDOM URINE 7.9 MG/DL (0.0-12.0)
== END ==
LOC: M SFHCRHEU 11:11
PROVIDERS: ATTEND Internal Medicine Rheumatology
DX: M32.9 Systemic lupus erythematosus, unspecified (principal); Z79.899 Other long term (current) drug therapy; M79.7 Fibromyalgia; I73.00 Raynaud's syndrome without gangrene

== ENCOUNTER 2022-03-01 13:52 | Emergency (ER) | payer OTHER ==
[~2022-03-01] VITALS: Ht 162.6 cm; Wt 86.6 kg
[~2022-03-01 13:52] MED LIST changes: -DOXY-350 PO; +DOXY-444 PO
[2022-03-01 13:53] VITALS: BP 160/90
[2022-03-01 14:58] LABS: BASO % 0.4 % (0.0-1.0); EOS # 0.2 10^3/uL (0.0-0.5); EOS % 2.7 % (0.0-3.0); HEMATOCRIT 40.2 % (36.0-47.0); LYMPH # 2.1 10^3/uL (1.5-5.0); MEAN CORPUSCULAR HEMOGLOBIN 28.1 pg (27.0-33.0); MEAN CORPUSCULAR HGB CONC 32.3 g/dl (32.0-36.5); MEAN CORPUSCULAR VOLUME 86.8 fl (80.0-96.0); MONO # 0.4 10^3/uL (0.0-0.8); MONO % 4.9 % (2.0-8.0); NEUTROPHILS # 4.6 10^3/uL (1.5-8.5); NEUTROPHILS % 62.9 % (36.0-66.0); PLATELET COUNT, AUTOMATED 174 10^3/uL (150-450); RED BLOOD COUNT 4.63 10^6/uL (4.00-5.40); WHITE BLOOD COUNT 7.4 10^3/uL (4.0-10.0)
[2022-03-01 15:22] LABS: LIPASE 35 U/L (12-53)
[2022-03-01 15:24] LABS: ALBUMIN 3.9 G/DL (3.2-5.2); ALKALINE PHOSPHATASE 92 U/L (46-116); ALT/SGPT 20 U/L (7.0-40); AST/SGOT 23 U/L (<34); BILIRUBIN,DIRECT < 0.1 MG/DL (<0.4); BILIRUBIN,TOTAL 0.4 MG/DL (0.3-1.2); BLOOD UREA NITROGEN 8 MG/DL (9-23); CALCIUM LEVEL 9.6 MG/DL (8.5-10.1); CARBON DIOXIDE LEVEL 30 MMOL/L (20-31); CHLORIDE LEVEL 105 MMOL/L (98-107); CREATININE FOR GFR 0.75 MG/DL (0.55-1.30); GLOMERULAR FILTRATION RATE > 60.0 (>51); GLUCOSE, FASTING 108 MG/DL (60-100); SODIUM LEVEL 142 MMOL/L (136-145); TOTAL PROTEIN 8.5 G/DL (5.7-8.2)
== END 2022-03-01 19:01 | disposition left against medical advice (07) ==
LOC: M ED 13:52
DX: Z53.21 Procedure and treatment not carried out due to patient leaving prior to being seen by health care provider (principal)

== ENCOUNTER → 2022-03-15 | Outpatient (CLI) | payer OTHER ==
[2022-03-15 17:13] LABS: BASO % 0.5 % (0.0-1.0); EOS # 0.4 10^3/uL (0.0-0.5); EOS % 6.8 % (0.0-3.0); HEMOGLOBIN 12.3 g/dl (12.0-15.5); LYMPH # 2.3 10^3/uL (1.5-5.0); LYMPH % 41.3 % (24.0-44.0); MEAN CORPUSCULAR HEMOGLOBIN 28.4 pg (27.0-33.0); MEAN CORPUSCULAR HGB CONC 32.4 g/dl (32.0-36.5); MEAN CORPUSCULAR VOLUME 87.8 fl (80.0-96.0); MONO # 0.4 10^3/uL (0.0-0.8); MONO % 6.6 % (2.0-8.0); NEUTROPHILS # 2.5 10^3/uL (1.5-8.5); NEUTROPHILS % 44.6 % (36.0-66.0); PLATELET COUNT, AUTOMATED 184 10^3/uL (150-450); RED BLOOD COUNT 4.33 10^6/uL (4.00-5.40); WHITE BLOOD COUNT 5.6 10^3/uL (4.0-10.0)
[2022-03-15 17:30] LABS: TOTAL 25(OH) VITAMIN D 53.3 NG/ML (20.0-100.0)
[2022-03-15 17:35] LABS: CHOLESTEROL RISK RATIO 3.01 (<5); HDL CHOLESTEROL 35.8 MG/DL (>40); HEMOGLOBIN A1c 5.4 % (4.0-6.0); LDL CHOLESTEROL 17.4 MG/DL (<100)
== END ==
LOC: M PLALAB 15:26
PROVIDERS: ATTEND Nurse Practitioner Family
DX: I10 Essential (primary) hypertension (principal); E11.9 Type 2 diabetes mellitus without complications; E53.8 Deficiency of other specified B group vitamins; E55.9 Vitamin D deficiency, unspecified; E78.5 Hyperlipidemia, unspecified

== ENCOUNTER → 2022-04-08 | Outpatient (REF) | payer OTHER ==
[2022-04-08 13:54] LABS: C REACTIVE PROTEIN QUANTITATIV < 0.40 MG/DL (<1.0)
[2022-04-08 13:55] LABS: ALBUMIN 3.6 G/DL (3.2-5.2); ALKALINE PHOSPHATASE 108 U/L (46-116); ALT/SGPT 35 U/L (7.0-40); AST/SGOT 27 U/L (<34); BILIRUBIN,TOTAL 0.3 MG/DL (0.3-1.2); BLOOD UREA NITROGEN 14 MG/DL (9-23); CARBON DIOXIDE LEVEL 31 MMOL/L (20-31); CHLORIDE LEVEL 105 MMOL/L (98-107); COMPLEMENT C3 116.7 MG/DL (90.0-170.0); CREATININE FOR GFR 0.94 MG/DL (0.55-1.30); GLOMERULAR FILTRATION RATE > 60.0 (>51); GLUCOSE, FASTING 104 MG/DL (60-100); POTASSIUM SERUM 4.2 MMOL/L (3.5-5.1); SODIUM LEVEL 142 MMOL/L (136-145); TOTAL PROTEIN 7.1 G/DL (5.7-8.2)
[2022-04-08 14:19] LABS: APPEARANCE, URINE MANUAL CLEAR (CLEAR); BILIRUBIN, URINE MANUAL NEGATIVE (NEGATIVE); BLOOD URINE MANUAL NEGATIVE (NEGATIVE); COLOR, URINE MANUAL YELLOW (YELLOW); GLUCOSE, URINE (UA) MANUAL NEGATIVE (NEGATIVE); KETONE, URINE MANUAL NEGATIVE (NEGATIVE); LEUKOCYTE ESTERASE, URINE MAN POSITIVE (NEGATIVE); NITRITE, URINE MANUAL NEGATIVE (NEGATIVE); PROTEIN, URINE MANUAL NEGATIVE (NEGATIVE); UROBILINOGEN, URINE MANUAL NORMAL (NORMAL)
[2022-04-08 14:33] LABS: BACTERIA, URINE SMALL AMOUNT; HYALINE CAST, URINE NONE SEEN /lpf (0-1); MUCUS, URINE SMALL AMOUNT (NEGATIVE); RBC, URINE NONE SEEN /hpf (0-3); SQUAMOUS EPITHELIAL CELL URINE SMALL AMOUNT /hpf (SMALL AMT)
[2022-04-08 15:06] LABS: TOTAL PROTEIN,RANDOM URINE 16.1 MG/DL (0.0-14.0)
[2022-04-08 15:12] LABS: CREATININE,RANDOM URINE 226.8 MG/DL
[2022-04-13 14:08] LABS: ANTI DS-DNA AB Negative (Negative); COMPLEMENT TOTAL (CH50) > 60 U/mL (>41)
== END ==
LOC: M SFHCRHEU 11:13
PROVIDERS: ATTEND Internal Medicine Rheumatology
DX: M32.9 Systemic lupus erythematosus, unspecified (principal); Z79.899 Other long term (current) drug therapy; M79.7 Fibromyalgia; I73.00 Raynaud's syndrome without gangrene

== ENCOUNTER → 2022-05-11 | Outpatient (REF) | payer OTHER ==
[~2022-05-11] MED LIST changes: +MONT-5 PO; -SING10TA32 PO
== END ==
LOC: M SFHCWAGY 17:35
PROVIDERS: ATTEND Nurse Practitioner Family
DX: Z12.4 Encounter for screening for malignant neoplasm of cervix (principal)

== ENCOUNTER → 2022-05-24 | Outpatient (REF) | payer OTHER | LOC: M LAB REF 14:34 | PROVIDERS: ATTEND Physician Assistant Medical | DX: R19.8 Other specified symptoms and signs involving the digestive system and abdomen (principal) ==

== ENCOUNTER → 2022-06-02 | Outpatient (CLI) | payer OTHER | LOC: M WHC 12:53 | PROVIDERS: ATTEND Nurse Practitioner Family | DX: Z12.31 Encounter for screening mammogram for malignant neoplasm of breast (principal) ==

== ENCOUNTER → 2022-07-07 | Outpatient (CLI) | payer OTHER ==
[~2022-07-07] MED LIST changes: -AKWASOL OD; -ALBU8.5H; +ALBU8.5H INH; +ARTIDRO2 OD; +AZAT50TA37 PO; +BAYE81TA10 PO; +DUPI300P SC; +E-Z-GAS II EFFERVESCENT PACKET (SODIUM BICARB./CITRIC ACID/SIMETHICONE) As Ordered ONE; +E-Z-HD 98% w/w 340GM SUSP BTL As Ordered ONE; +E-Z-PAQUE 96% w/w SUSP 176GM BTL As Ordered ONE; -ERGO500029; +ERGO500029 PO; +ESZO1TAB4 PO; +EZET10TA21 PO; +GABA-282 PO; +MELO15TA28 PO; +MELO7.5T35 PO; +METF-838 PO; +METO1TAB32 PO; +TRAZ-189 PO; +VALS40TA9 PO; +ZOLP10TA2 PO
== END ==
LOC: M RAD 07:40
PROVIDERS: ATTEND Nurse Practitioner Family
DX: R13.10 Dysphagia, unspecified (principal); K21.9 Gastro-esophageal reflux disease without esophagitis

== ENCOUNTER → 2022-07-13 | Outpatient (CLI) | payer OTHER ==
[~2022-07-13] MED LIST changes: -E-Z-GAS II EFFERVESCENT PACKET (SODIUM BICARB./CITRIC ACID/SIMETHICONE) As Ordered ONE; -E-Z-HD 98% w/w 340GM SUSP BTL As Ordered ONE; -E-Z-PAQUE 96% w/w SUSP 176GM BTL As Ordered ONE
[2022-07-13 15:08] LABS: APPEARANCE, URINE CLEAR (CLEAR); BACTERIA, URINE AUTO NEGATIVE (NEGATIVE); BILIRUBIN, URINE AUTO NEGATIVE (NEGATIVE); BLOOD, URINE BLOOD NEGATIVE (NEGATIVE); COLOR, URINE YELLOW (YELLOW); GLUCOSE, URINE (UA) AUTO NEGATIVE (NEGATIVE); KETONE, URINE AUTO NEGATIVE (NEGATIVE); LEUKOCYTE ESTERASE, URINE AUTO TRACE (NEGATIVE); MUCUS, URINE SMALL (NEGATIVE); NITRITE, URINE AUTO NEGATIVE (NEGATIVE); PROTEIN, URINE AUTO 1+ mg/dL (NEGATIVE); RBC, URINE AUTO 1 /HPF (0-3); SPECIFIC GRAVITY URINE AUTO 1.021 (1.002-1.035); SQUAMOUS EPITHELIAL CELL UR AU 0 /HPF (0-6); UROBILINOGEN, URINE AUTO 0.2 mg/dL (0.0-2.0); WBC, URINE AUTO 1 /HPF (0-3)
[2022-07-13 15:14] LABS: BASO % 0.7 % (0.0-1.0); EOS # 0.5 10^3/uL (0.0-0.5); EOS % 8.6 % (0.0-3.0); HEMATOCRIT 37.2 % (36.0-47.0); HEMOGLOBIN 12.1 g/dl (12.0-15.5); LYMPH % 36.9 % (24.0-44.0); MEAN CORPUSCULAR HGB CONC 32.5 g/dl (32.0-36.5); MEAN CORPUSCULAR VOLUME 89.2 fl (80.0-96.0); MONO # 0.4 10^3/uL (0.0-0.8); MONO % 6.6 % (2.0-8.0); NEUTROPHILS # 2.6 10^3/uL (1.5-8.5); PLATELET COUNT, AUTOMATED 175 10^3/uL (150-450); RED BLOOD COUNT 4.17 10^6/uL (4.00-5.40); WHITE BLOOD COUNT 5.5 10^3/uL (4.0-10.0)
[2022-07-13 15:36] LABS: TOTAL PROTEIN,RANDOM URINE 27.3 MG/DL (0.0-14.0)
[2022-07-13 15:38] LABS: C REACTIVE PROTEIN QUANTITATIV < 0.40 MG/DL (<1.0)
[2022-07-13 15:39] LABS: COMPLEMENT C3 139.1 MG/DL (90.0-170.0)
[2022-07-13 15:40] LABS: ALBUMIN 3.9 G/DL (3.2-5.2); ALKALINE PHOSPHATASE 117 U/L (46-116); ALT/SGPT 22 U/L (7.0-40); AST/SGOT 22 U/L (<34); BILIRUBIN,TOTAL 0.3 MG/DL (0.3-1.2); BLOOD UREA NITROGEN 13 MG/DL (9-23); CALCIUM LEVEL 8.7 MG/DL (8.5-10.1); CARBON DIOXIDE LEVEL 30 MMOL/L (20-31); CHLORIDE LEVEL 104 MMOL/L (98-107); CREATININE FOR GFR 0.88 MG/DL (0.55-1.30); GLOMERULAR FILTRATION RATE > 60.0 (>51); GLUCOSE, FASTING 106 MG/DL (60-100); POTASSIUM SERUM 3.8 MMOL/L (3.5-5.1); SODIUM LEVEL 139 MMOL/L (136-145); TOTAL PROTEIN 7.9 G/DL (5.7-8.2)
[2022-07-13 15:41] LABS: CREATININE,RANDOM URINE 239.8 MG/DL
[2022-07-13 15:58] LABS: ERYTHROCYTE SEDIMENTATION RATE 32 mm/hr (0-30)
[2022-07-18 12:08] LABS: ANTI DS-DNA AB Negative (Negative); COMPLEMENT TOTAL (CH50) > 60 U/mL (>41)
== END ==
LOC: M LAB 13:35
PROVIDERS: ATTEND Internal Medicine Rheumatology
DX: M32.9 Systemic lupus erythematosus, unspecified (principal); Z79.899 Other long term (current) drug therapy; M79.7 Fibromyalgia; I73.00 Raynaud's syndrome without gangrene

== ENCOUNTER 2022-07-15 07:37 | Day surgery (SDC) | payer OTHER ==
[~2022-07-15] VITALS: Ht 162.6 cm; Wt 87.3 kg
[~2022-07-15 07:37] MED LIST changes: +NS 1,000 ML IV ONE
[2022-07-15] MEDS ORDERED: LIDOCAINE 2% 100MG/5ML SDV (FOR ANES.) As Ordered ONE (09:26)
[2022-07-15] MEDS ORDERED: fentaNYL 100 MCG/2 ML INJECTION As Ordered ONE (09:26)
[2022-07-15] MEDS ORDERED: propofoL 200 MG/20 ML VIAL As Ordered ONE (09:26)
[2022-07-15 10:20] VITALS: BP 128/74
== END 2022-07-15 10:30 | disposition home or self-care (01) ==
LOC: M OPP 07:37
PROVIDERS: ATTEND Internal Medicine Gastroenterology
DX: Z12.11 Encounter for screening for malignant neoplasm of colon (principal); Z86.010 Personal history of colon polyps; Z80.0 Family history of malignant neoplasm of digestive organs; K63.5 Polyp of colon; K64.8 Other hemorrhoids; K62.89 Other specified diseases of anus and rectum; R12 Heartburn; R10.9 Unspecified abdominal pain; G47.33 Obstructive sleep apnea (adult) (pediatric); Z79.02 Long term (current) use of antithrombotics/antiplatelets; Z79.51 Long term (current) use of inhaled steroids; Z79.82 Long term (current) use of aspirin; Z79.891 Long term (current) use of opiate analgesic; Z79.899 Other long term (current) drug therapy; Z88.5 Allergy status to narcotic agent
CPT/HCPCS: 43235; 45385; 88305; J3010

== ENCOUNTER → 2022-11-01 | Outpatient (CLI) | payer OTHER ==
[~2022-11-01] MED LIST changes: -NS 1,000 ML IV ONE
[2022-11-01 13:52] LABS: BASO % 0.8 % (0.0-1.0); EOS # 0.5 10^3/uL (0.0-0.5); EOS % 8.9 % (0.0-3.0); HEMATOCRIT 36.6 % (36.0-47.0); HEMOGLOBIN 11.8 g/dl (12.0-15.5); LYMPH # 2.1 10^3/uL (1.5-5.0); MEAN CORPUSCULAR HEMOGLOBIN 29.3 pg (27.0-33.0); MEAN CORPUSCULAR HGB CONC 32.2 g/dl (32.0-36.5); MEAN CORPUSCULAR VOLUME 90.8 fl (80.0-96.0); MONO # 0.5 10^3/uL (0.0-0.8); MONO % 8.7 % (2.0-8.0); NEUTROPHILS # 2.2 10^3/uL (1.5-8.5); NEUTROPHILS % 41.2 % (36.0-66.0); PLATELET COUNT, AUTOMATED 154 10^3/uL (150-450); RED BLOOD COUNT 4.03 10^6/uL (4.00-5.40); WHITE BLOOD COUNT 5.3 10^3/uL (4.0-10.0)
[2022-11-01 14:18] LABS: HEMOGLOBIN A1c 5.9 % (4.0-6.0)
[2022-11-01 14:20] LABS: CHOLESTEROL LEVEL 132 MG/DL (<200); CHOLESTEROL RISK RATIO 4.98 (<5); HDL CHOLESTEROL 26.5 MG/DL (>40); MAGNESIUM LEVEL 1.9 MG/DL (1.8-2.4); NON-HDL-C 105.5 MG/DL; TOTAL 25(OH) VITAMIN D 42.9 NG/ML (20.0-100.0); TRIGLYCERIDES LEVEL 759 MG/DL (<150); VITAMIN B12 LEVEL 659 PG/ML (211-911)
== END ==
LOC: M PLALAB 09:18
PROVIDERS: ATTEND Nurse Practitioner Family
DX: I10 Essential (primary) hypertension (principal); E11.9 Type 2 diabetes mellitus without complications; E78.5 Hyperlipidemia, unspecified; E55.9 Vitamin D deficiency, unspecified; E53.8 Deficiency of other specified B group vitamins

== ENCOUNTER → 2023-01-20 | Outpatient (CLI) | payer OTHER ==
[~2023-01-20] MED LIST changes: -LUNE2TAB23 PO; +LUNE2TAB28 PO
[2023-01-20 14:22] LABS: BASO % 0.4 % (0.0-1.0); EOS # 0.3 10^3/uL (0.0-0.5); EOS % 6.3 % (0.0-3.0); HEMATOCRIT 36.3 % (36.0-47.0); HEMOGLOBIN 12.1 g/dl (12.0-15.5); LYMPH # 1.9 10^3/uL (1.5-5.0); LYMPH % 39.8 % (24.0-44.0); MEAN CORPUSCULAR HEMOGLOBIN 29.9 pg (27.0-33.0); MEAN CORPUSCULAR HGB CONC 33.3 g/dl (32.0-36.5); MEAN CORPUSCULAR VOLUME 89.6 fl (80.0-96.0); MONO # 0.3 10^3/uL (0.0-0.8); MONO % 6.3 % (2.0-8.0); NEUTROPHILS # 2.3 10^3/uL (1.5-8.5); PLATELET COUNT, AUTOMATED 149 10^3/uL (150-450); RED BLOOD COUNT 4.05 10^6/uL (4.00-5.40); WHITE BLOOD COUNT 4.8 10^3/uL (4.0-10.0)
[2023-01-20 14:42] LABS: C REACTIVE PROTEIN QUANTITATIV < 0.40 MG/DL (<1.0)
[2023-01-20 14:43] LABS: ALBUMIN 3.7 G/DL (3.2-5.2); ALKALINE PHOSPHATASE 100 U/L (46-116); ALT/SGPT 23 U/L (7.0-40); AST/SGOT 24 U/L (<34); BILIRUBIN,TOTAL 0.2 MG/DL (0.3-1.2); BLOOD UREA NITROGEN 15 MG/DL (9-23); CARBON DIOXIDE LEVEL 31 MMOL/L (20-31); CHLORIDE LEVEL 104 MMOL/L (98-107); CREATININE FOR GFR 0.76 MG/DL (0.55-1.30); GLOMERULAR FILTRATION RATE > 60.0 (>51); GLUCOSE, FASTING 96 MG/DL (60-100); POTASSIUM SERUM 4.5 MMOL/L (3.5-5.1); SODIUM LEVEL 140 MMOL/L (136-145); TOTAL PROTEIN 7.9 G/DL (5.7-8.2)
[2023-01-20 14:44] LABS: COMPLEMENT C3 136.8 MG/DL (90.0-170.0); COMPLEMENT C4 29.3 MG/DL (12-36)
[2023-01-20 15:32] LABS: ERYTHROCYTE SEDIMENTATION RATE 51 mm/hr (0-30)
[2023-01-24 15:08] LABS: ANTI DS-DNA AB Negative (Negative); COMPLEMENT TOTAL (CH50) > 60 U/mL (>41)
== END ==
LOC: M PLALAB 11:09
PROVIDERS: ATTEND Internal Medicine Rheumatology
DX: M32.9 Systemic lupus erythematosus, unspecified (principal)

== ENCOUNTER → 2023-03-17 | Outpatient (REF) | payer OTHER ==
[2023-03-17 18:29] LABS: RSV AMPLIFICATION NEGATIVE (NEGATIVE)
== END ==
LOC: M SFHCPLAZ 17:06
PROVIDERS: ATTEND Nurse Practitioner Family
DX: J34.89 Other specified disorders of nose and nasal sinuses (principal)

== ENCOUNTER → 2023-04-28 | Outpatient (REF) | payer OTHER ==
[2023-04-28 16:11] LABS: APPEARANCE, URINE CLEAR (CLEAR); BACTERIA, URINE AUTO NEGATIVE (NEGATIVE); BILIRUBIN, URINE AUTO NEGATIVE (NEGATIVE); BLOOD, URINE BLOOD NEGATIVE (NEGATIVE); COLOR, URINE YELLOW (YELLOW); GLUCOSE, URINE (UA) AUTO NEGATIVE (NEGATIVE); KETONE, URINE AUTO NEGATIVE (NEGATIVE); LEUKOCYTE ESTERASE, URINE AUTO NEGATIVE (NEGATIVE); MUCUS, URINE SMALL (NEGATIVE); NITRITE, URINE AUTO NEGATIVE (NEGATIVE); PROTEIN, URINE AUTO NEGATIVE (NEGATIVE); RBC, URINE AUTO 1 /HPF (0-3); SPECIFIC GRAVITY URINE AUTO 1.017 (1.002-1.035); SQUAMOUS EPITHELIAL CELL UR AU 0 /HPF (0-6); UROBILINOGEN, URINE AUTO 0.2 mg/dL (0.0-2.0); WBC, URINE AUTO 1 /HPF (0-3)
== END ==
LOC: M SFHCRHEU 15:33
PROVIDERS: ATTEND Internal Medicine Rheumatology
DX: M32.9 Systemic lupus erythematosus, unspecified (principal); I73.00 Raynaud's syndrome without gangrene

== ENCOUNTER 2023-05-06 22:18 | Emergency (ER) | payer OTHER ==
[2023-05-06] MEDS ORDERED: ISOVUE-370 76% 100ML VIAL As Ordered ONE (22:25)
[2023-05-06 22:50] LABS: BASO % 0.5 % (0.0-1.0); EOS # 0.4 10^3/uL (0.0-0.5); EOS % 6.1 % (0.0-3.0); HEMATOCRIT 35.6 % (36.0-47.0); HEMOGLOBIN 12.6 g/dl (12.0-15.5); LYMPH # 2.6 10^3/uL (1.5-5.0); LYMPH % 41.8 % (24.0-44.0); MEAN CORPUSCULAR HEMOGLOBIN 32.1 pg (27.0-33.0); MEAN CORPUSCULAR HGB CONC 35.4 g/dl (32.0-36.5); MEAN CORPUSCULAR VOLUME 90.6 fl (80.0-96.0); MONO # 0.5 10^3/uL (0.0-0.8); NEUTROPHILS # 2.7 10^3/uL (1.5-8.5); NEUTROPHILS % 43.4 % (36.0-66.0); PLATELET COUNT, AUTOMATED 179 10^3/uL (150-450); RED BLOOD COUNT 3.93 10^6/uL (4.00-5.40); WHITE BLOOD COUNT 6.1 10^3/uL (4.0-10.0)
[2023-05-06 22:59] VITALS: TEMP 97.6
[2023-05-06 23:15] LABS: BLOOD UREA NITROGEN 14 MG/DL (9-23); CALCIUM LEVEL 8.6 MG/DL (8.5-10.1); CARBON DIOXIDE LEVEL 28 MMOL/L (20-31); CHLORIDE LEVEL 104 MMOL/L (98-107); CK-MB VALUE MASS 1.1 NG/ML (<3.6); CREATININE FOR GFR 0.85 MG/DL (0.55-1.30); GLOMERULAR FILTRATION RATE > 60.0 (>51); GLUCOSE, FASTING 104 MG/DL (60-100); POTASSIUM SERUM 3.7 MMOL/L (3.5-5.1); SODIUM LEVEL 138 MMOL/L (136-145)
[2023-05-06 23:19] LABS: CPK CREATINE PHOSPHOKINASE 158 U/L (34-145); MB/CK RELATIVE INDEX 0.69 (< OR =4)
[2023-05-07] MEDS: TENECTEPLASE 50 MG KIT (TNKase) IVP ONE (00:03)
[2023-05-07 00:46] VITALS: O2SAT 96
[2023-05-07 00:50] VITALS: BP 188/82
[2023-05-07 01:25] LABS: RSV AMPLIFICATION NEGATIVE (NEGATIVE)
[2023-05-07] MEDS ORDERED: SODIUM CHLORIDE 0.9% INJ 10 ML SYR IV ONE ×2 (06:00)
== END 2023-05-07 01:25 | disposition short-term general hospital (02) ==
LOC: M ED 22:18
DX: I63.50 Cerebral infarction due to unspecified occlusion or stenosis of unspecified cerebral artery (principal); E11.9 Type 2 diabetes mellitus without complications; I10 Essential (primary) hypertension; E78.5 Hyperlipidemia, unspecified; J45.909 Unspecified asthma, uncomplicated; K21.9 Gastro-esophageal reflux disease without esophagitis; F32.A Depression, unspecified; Z88.5 Allergy status to narcotic agent; Z79.52 Long term (current) use of systemic steroids; Z79.82 Long term (current) use of aspirin; Z79.02 Long term (current) use of antithrombotics/antiplatelets; Z79.811 Long term (current) use of aromatase inhibitors; Z79.4 Long term (current) use of insulin; Z79.899 Other long term (current) drug therapy
CPT/HCPCS: 70450; 70496; 70498; 71045; 80048; 82550; 82553; 85025; 85730; 87631; 93041; 94760; 96374; 99291; 99292; J3101; Q9967

== ENCOUNTER → 2023-08-30 | Outpatient (CLI) | payer OTHER ==
[~2023-08-30] MED LIST changes: +DOXY-440 PO; -DOXY-444 PO
== END ==
LOC: M PLAIMG 08:22
PROVIDERS: ATTEND Nurse Practitioner Family
DX: M54.2 Cervicalgia (principal); M43.16 Spondylolisthesis, lumbar region

== ENCOUNTER → 2023-09-15 | Outpatient (CLI) | payer OTHER ==
[2023-09-15 17:41] LABS: BASO % 0.4 % (0.0-1.0); EOS # 0.5 10^3/uL (0.0-0.5); EOS % 8.1 % (0.0-3.0); HEMATOCRIT 37.1 % (36.0-47.0); HEMOGLOBIN 12.4 g/dl (12.0-15.5); LYMPH # 2.4 10^3/uL (1.5-5.0); LYMPH % 35.7 % (24.0-44.0); MEAN CORPUSCULAR HEMOGLOBIN 29.3 pg (27.0-33.0); MEAN CORPUSCULAR HGB CONC 33.4 g/dl (32.0-36.5); MEAN CORPUSCULAR VOLUME 87.7 fl (80.0-96.0); MONO # 0.5 10^3/uL (0.0-0.8); MONO % 7.5 % (2.0-8.0); NEUTROPHILS # 3.2 10^3/uL (1.5-8.5); PLATELET COUNT, AUTOMATED 164 10^3/uL (150-450); RED BLOOD COUNT 4.23 10^6/uL (4.00-5.40); WHITE BLOOD COUNT 6.7 10^3/uL (4.0-10.0)
[2023-09-15 17:47] LABS: HEMOGLOBIN A1c 5.8 % (4.0-6.0)
[2023-09-15 18:01] LABS: CREATININE, URINE 83.6 MG/DL
[2023-09-15 18:03] LABS: ALKALINE PHOSPHATASE 118 U/L (46-116); ALT/SGPT 33 U/L (7.0-40); AST/SGOT 23 U/L (<34); BILIRUBIN,TOTAL 0.4 MG/DL (0.3-1.2); BLOOD UREA NITROGEN 16 MG/DL (9-23); CALCIUM LEVEL 9.4 MG/DL (8.5-10.1); CARBON DIOXIDE LEVEL 30 MMOL/L (20-31); CHLORIDE LEVEL 104 MMOL/L (98-107); CHOLESTEROL LEVEL 145 MG/DL (<200); CHOLESTEROL RISK RATIO 4.26 (<5); CREATININE FOR GFR 0.75 MG/DL (0.55-1.30); GLOMERULAR FILTRATION RATE > 60.0 (>51); GLUCOSE, FASTING 90 MG/DL (60-100); POTASSIUM SERUM 4.1 MMOL/L (3.5-5.1); SODIUM LEVEL 138 MMOL/L (136-145); TOTAL PROTEIN 8.1 G/DL (5.7-8.2); TRIGLYCERIDES LEVEL 412 MG/DL (<150)
[2023-09-15 18:04] LABS: FREE T4 0.85 NG/DL (0.89-1.76)
[2023-09-15 18:05] LABS: THYROID STIMULATING HORMONE 1.116 uIU/ML (0.55-4.78)
== END ==
LOC: M PLALAB 15:12
PROVIDERS: ATTEND Nurse Practitioner Family
DX: E78.5 Hyperlipidemia, unspecified (principal); E11.9 Type 2 diabetes mellitus without complications; E55.9 Vitamin D deficiency, unspecified; I10 Essential (primary) hypertension

== ENCOUNTER → 2023-10-09 | Outpatient (CLI) | payer OTHER ==
[2023-10-09 15:39] LABS: BLOOD UREA NITROGEN 11 MG/DL (9-23); CREATININE FOR GFR 0.73 MG/DL (0.55-1.30); GLOMERULAR FILTRATION RATE > 60.0 (>51)
== END ==
LOC: M LAB 13:33
PROVIDERS: ATTEND Physician Assistant Medical
DX: R10.33 Periumbilical pain (principal)

== ENCOUNTER → 2023-11-08 | Outpatient (CLI) | payer OTHER | LOC: M PLAIMG 10:32 | PROVIDERS: ATTEND Neurological Surgery | DX: M48.02 Spinal stenosis, cervical region (principal); M25.78 Osteophyte, vertebrae; G95.9 Disease of spinal cord, unspecified ==

== ENCOUNTER → 2024-01-11 | Outpatient (REF) | payer OTHER ==
[~2024-01-11] MED LIST changes: +GABA-1172 PO; +GABA-1490 PO; -GABA-282 PO; -GABA600T4 PO
== END ==
LOC: M SFHCPLAZ 14:57
PROVIDERS: ATTEND Physician Assistant Medical
DX: J40 Bronchitis, not specified as acute or chronic (principal)

== ENCOUNTER → 2024-03-26 | Outpatient (REF) | payer OTHER ==
[~2024-03-26] MED LIST changes: -ADV500INH INH; +ADVA1AER10 INH
[2024-03-29 13:09] LABS: AMPHETAMINE SCREEN, URINE Negative ng/mL (Cutoff=1000); BARBITURATES SCREEN, URINE Negative ng/mL (Cutoff=200); BENZODIAZEPINES, URINE SCREEN Negative ng/mL (Cutoff=200); CANNABINOID SCREEN, URINE See Final Results ng/mL (Cutoff=20); CANNABINOID, URINE Negative (Cutoff=20); COCAINE SCREEN, URINE Negative ng/mL (Cutoff=300); CREATININE, URINE 102.8 mg/dL (20.0-300.0); METHADONE, URINE SCREEN Negative ng/mL (Cutoff=300); OPIATE SCREEN, URINE Negative ng/mL (Cutoff=300); OXYCODONE, SCREEN, URINE Negative ng/mL (Cutoff=100); PCP SCREEN, URINE Negative ng/mL (Cutoff=25); SPECIFIC GRAVITY, URINE 1.013 (.); pH, URINE 5.9 (4.5-8.9)
== END ==
LOC: M SFHCPLAZ 17:13
PROVIDERS: ATTEND Nurse Practitioner Family
DX: G47.00 Insomnia, unspecified (principal)

== ENCOUNTER → 2024-04-02 | Outpatient (REF) | payer OTHER ==
[2024-04-02 15:55] LABS: LIPASE 53 U/L (12-53)
[2024-04-02 15:57] LABS: ALBUMIN 3.6 G/DL (3.2-5.2); ALKALINE PHOSPHATASE 137 U/L (35-104); ALT/SGPT 48 U/L (7.0-40); AMYLASE 48 U/L (30-118); AST/SGOT 40 U/L (<34); BILIRUBIN,DIRECT < 0.1 MG/DL (<0.4); BILIRUBIN,TOTAL 0.3 MG/DL (0.3-1.2); CARBON DIOXIDE LEVEL 28 MMOL/L (20-31); CHLORIDE LEVEL 107 MMOL/L (98-107); POTASSIUM SERUM 4.3 MMOL/L (3.5-5.1); SODIUM LEVEL 142 MMOL/L (136-145); TOTAL PROTEIN 8.2 G/DL (5.7-8.2)
== END ==
LOC: M LAB REF 14:56
PROVIDERS: ATTEND Internal Medicine Pulmonary Disease
DX: J45.50 Severe persistent asthma, uncomplicated (principal)

== ENCOUNTER → 2024-05-21 | Outpatient (REF) | payer OTHER | LOC: M SFHCPLAZ 12:33 | PROVIDERS: ATTEND Physician Assistant Medical | DX: B37.31 Acute candidiasis of vulva and vagina (principal) ==

== ENCOUNTER 2024-06-11 10:12 | Day surgery (SDC) | payer OTHER ==
[~2024-06-11] VITALS: Ht 162.6 cm; Wt 87.7 kg
[~2024-06-11 10:12] MED LIST changes: +CETI-24 PO; +VITA1CAP25 PO
[2024-06-11 12:27] VITALS: TEMP 96.5
[2024-06-11 12:42] VITALS: BP 143/79; O2SAT 97
[2024-06-11] MEDS ORDERED: LIDOCAINE 2% 100MG/5ML SDV (FOR ANES.) As Ordered ONE (12:50)
[2024-06-11] MEDS ORDERED: propofoL 200 MG/20 ML VIAL As Ordered ONE (12:50)
== END 2024-06-11 12:52 | disposition home or self-care (01) ==
LOC: M OPP 10:12
PROVIDERS: ATTEND Internal Medicine Gastroenterology
DX: R13.14 Dysphagia, pharyngoesophageal phase (principal); R13.12 Dysphagia, oropharyngeal phase; G47.30 Sleep apnea, unspecified; Z88.5 Allergy status to narcotic agent; Z79.51 Long term (current) use of inhaled steroids; Z79.82 Long term (current) use of aspirin; Z79.84 Long term (current) use of oral hypoglycemic drugs; Z79.899 Other long term (current) drug therapy

== ENCOUNTER → 2024-06-13 | Outpatient (REF) | payer OTHER ==
[2024-06-13 16:52] LABS: TOTAL PROTEIN,RANDOM URINE 24.5 MG/DL (0.0-14.0)
[2024-06-13 17:10] LABS: APPEARANCE, URINE CLEAR (CLEAR); BACTERIA, URINE AUTO NEGATIVE (NEGATIVE); BILIRUBIN, URINE AUTO NEGATIVE (NEGATIVE); BLOOD, URINE BLOOD NEGATIVE (NEGATIVE); COLOR, URINE YELLOW (YELLOW); GLUCOSE, URINE (UA) AUTO NEGATIVE (NEGATIVE); KETONE, URINE AUTO NEGATIVE (NEGATIVE); LEUKOCYTE ESTERASE, URINE AUTO NEGATIVE (NEGATIVE); MUCUS, URINE SMALL (NEGATIVE); NITRITE, URINE AUTO NEGATIVE (NEGATIVE); PROTEIN, URINE AUTO NEGATIVE (NEGATIVE); RBC, URINE AUTO 1 /HPF (0-3); SPECIFIC GRAVITY URINE AUTO 1.018 (1.002-1.035); SQUAMOUS EPITHELIAL CELL UR AU 2 /HPF (0-6); UROBILINOGEN, URINE AUTO 0.2 mg/dL (0.0-2.0); WBC, URINE AUTO 2 /HPF (0-3)
== END ==
LOC: M SFHCRHEU 10:00
PROVIDERS: ATTEND Internal Medicine Rheumatology
DX: M32.9 Systemic lupus erythematosus, unspecified (principal); Z79.899 Other long term (current) drug therapy; M79.7 Fibromyalgia; I73.00 Raynaud's syndrome without gangrene

== ENCOUNTER → 2024-08-01 | Outpatient (CLI) | payer OTHER ==
[~2024-08-01] MED LIST changes: -AMBI10TA PO; +ZOLP-533 PO
[2024-08-01 15:05] LABS: BASO % 0.5 % (0.0-1.0); EOS # 0.5 10^3/uL (0.0-0.5); EOS % 7.2 % (0.0-3.0); HEMATOCRIT 36.1 % (36.0-47.0); HEMOGLOBIN 11.9 g/dl (12.0-15.5); LYMPH # 2.1 10^3/uL (1.5-5.0); LYMPH % 32.6 % (24.0-44.0); MEAN CORPUSCULAR HEMOGLOBIN 28.8 pg (27.0-33.0); MEAN CORPUSCULAR VOLUME 87.4 fl (80.0-96.0); MONO # 0.6 10^3/uL (0.0-0.8); MONO % 9.4 % (2.0-8.0); NEUTROPHILS # 3.2 10^3/uL (1.5-8.5); NEUTROPHILS % 50.1 % (36.0-66.0); PLATELET COUNT, AUTOMATED 180 10^3/uL (150-450); RED BLOOD COUNT 4.13 10^6/uL (4.00-5.40); WHITE BLOOD COUNT 6.4 10^3/uL (4.0-10.0)
[2024-08-01 15:06] LABS: C REACTIVE PROTEIN QUANTITATIV < 0.50 MG/DL (<1.0)
[2024-08-01 15:08] LABS: ALBUMIN 3.5 G/DL (3.2-5.2); ALKALINE PHOSPHATASE 133 U/L (35-104); ALT/SGPT 44 U/L (7.0-40); AST/SGOT 40 U/L (<34); BILIRUBIN,TOTAL 0.2 MG/DL (0.3-1.2); BLOOD UREA NITROGEN 15 MG/DL (9-23); CALCIUM LEVEL 9.1 MG/DL (8.3-10.6); CARBON DIOXIDE LEVEL 28 MMOL/L (20-31); CHLORIDE LEVEL 105 MMOL/L (98-107); CREATININE FOR GFR 0.76 MG/DL (0.55-1.30); GLOMERULAR FILTRATION RATE 89.7 (>45); GLUCOSE, FASTING 134 MG/DL (74-106); POTASSIUM SERUM 3.9 MMOL/L (3.5-5.1); SODIUM LEVEL 142 MMOL/L (136-145); TOTAL PROTEIN 7.7 G/DL (5.7-8.2)
[2024-08-01 15:25] LABS: ERYTHROCYTE SEDIMENTATION RATE 48 mm/hr (0-30)
[2024-08-01 16:35] LABS: COMPLEMENT C4 26.3 MG/DL (12-36)
== END ==
LOC: M PLALAB 11:02
PROVIDERS: ATTEND Internal Medicine Rheumatology
DX: M32.9 Systemic lupus erythematosus, unspecified (principal); M79.7 Fibromyalgia; I73.00 Raynaud's syndrome without gangrene; Z79.899 Other long term (current) drug therapy

== ENCOUNTER → 2024-08-01 | Outpatient (CLI) | payer OTHER ==
[2024-08-01 14:11] LABS: APPEARANCE, URINE CLOUDY (CLEAR); BACTERIA, URINE AUTO NEGATIVE (NEGATIVE); BILIRUBIN, URINE AUTO NEGATIVE (NEGATIVE); BLOOD, URINE BLOOD NEGATIVE (NEGATIVE); COLOR, URINE COLORLESS (YELLOW); GLUCOSE, URINE (UA) AUTO NEGATIVE (NEGATIVE); KETONE, URINE AUTO NEGATIVE (NEGATIVE); LEUKOCYTE ESTERASE, URINE AUTO TRACE (NEGATIVE); MUCUS, URINE SMALL (NEGATIVE); NITRITE, URINE AUTO NEGATIVE (NEGATIVE); PROTEIN, URINE AUTO NEGATIVE (NEGATIVE); RBC, URINE AUTO 1 /HPF (0-3); SPECIFIC GRAVITY URINE AUTO 1.018 (1.002-1.035); SQUAMOUS EPITHELIAL CELL UR AU 2 /HPF (0-6); UROBILINOGEN, URINE AUTO 0.2 mg/dL (0.0-2.0); WBC, URINE AUTO 2 /HPF (0-3)
[2024-08-01 15:06] LABS: BASO % 0.6 % (0.0-1.0); EOS # 0.4 10^3/uL (0.0-0.5); EOS % 6.9 % (0.0-3.0); HEMATOCRIT 36.5 % (36.0-47.0); HEMOGLOBIN 11.7 g/dl (12.0-15.5); LYMPH # 2.1 10^3/uL (1.5-5.0); LYMPH % 32.1 % (24.0-44.0); MEAN CORPUSCULAR HEMOGLOBIN 28.1 pg (27.0-33.0); MEAN CORPUSCULAR HGB CONC 32.1 g/dl (32.0-36.5); MEAN CORPUSCULAR VOLUME 87.5 fl (80.0-96.0); MONO # 0.6 10^3/uL (0.0-0.8); MONO % 9.5 % (2.0-8.0); NEUTROPHILS # 3.2 10^3/uL (1.5-8.5); NEUTROPHILS % 50.6 % (36.0-66.0); PLATELET COUNT, AUTOMATED 189 10^3/uL (150-450); RED BLOOD COUNT 4.17 10^6/uL (4.00-5.40); WHITE BLOOD COUNT 6.4 10^3/uL (4.0-10.0)
[2024-08-01 15:08] LABS: CHOLESTEROL LEVEL 128 MG/DL (<200); HDL CHOLESTEROL 32.8 MG/DL (>40); NON-HDL-C 95.2 MG/DL; THYROID STIMULATING HORMONE 1.221 uIU/ML (0.55-4.78); TRIGLYCERIDES LEVEL 440 MG/DL (<150)
[2024-08-01 15:09] LABS: FREE T4 0.95 NG/DL (0.89-1.76); VITAMIN B12 LEVEL 778 PG/ML (211-911)
[2024-08-01 15:16] LABS: HEMOGLOBIN A1c 6.2 % (4.0-6.0)
== END ==
LOC: M PLALAB 10:59
PROVIDERS: ATTEND Nurse Practitioner Family
DX: E11.9 Type 2 diabetes mellitus without complications (principal); N89.8 Other specified noninflammatory disorders of vagina; E78.5 Hyperlipidemia, unspecified; E53.8 Deficiency of other specified B group vitamins; I10 Essential (primary) hypertension; E55.9 Vitamin D deficiency, unspecified

== ENCOUNTER → 2024-11-01 | Outpatient (CLI) | payer OTHER ==
[~2024-11-01] MED LIST changes: -PROZ20CA11 PO; +PROZ20CA12 PO
== END ==
LOC: M PLAIMG 10:49
PROVIDERS: ATTEND Nurse Practitioner Family
DX: R10.84 Generalized abdominal pain (principal)

== ENCOUNTER → 2024-11-12 | Outpatient (CLI) | payer OTHER ==
[2024-11-12 11:23] LABS: BASO # 0.0 10^3/uL (0.0-0.2); BASO % 0.5 % (0.0-1.0); EOS # 0.4 10^3/uL (0.0-0.5); EOS % 6.5 % (0.0-3.0); LYMPH # 1.8 10^3/uL (1.5-5.0); LYMPH % 30.7 % (24.0-44.0); MONO # 0.5 10^3/uL (0.0-0.8); MONO % 8.7 % (2.0-8.0); NEUTROPHILS # 3.2 10^3/uL (1.5-8.5); NEUTROPHILS % 53.3 % (36.0-66.0); PLATELET COUNT, AUTOMATED 195 10^3/uL (150-450)
[2024-11-12 11:26] LABS: ALT/SGPT 45 U/L (7.0-40); AST/SGOT 44 U/L (<34); C REACTIVE PROTEIN QUANTITATIV < 0.50 MG/DL (<1.0); CALCIUM LEVEL 9.1 MG/DL (8.3-10.6); CARBON DIOXIDE LEVEL 28 MMOL/L (20-31); CHLORIDE LEVEL 106 MMOL/L (98-107); CHOLESTEROL LEVEL 109 MG/DL (<200); CHOLESTEROL RISK RATIO 3.86 (<5); CREATININE FOR GFR 0.77 MG/DL (0.55-1.30); GLOMERULAR FILTRATION RATE 88.3 (>45); LDL CHOLESTEROL 30.4 MG/DL (<100); NON-HDL-C 80.8 MG/DL; POTASSIUM SERUM 4.1 MMOL/L (3.5-5.1); SODIUM LEVEL 143 MMOL/L (136-145); TRIGLYCERIDES LEVEL 252 MG/DL (<150)
[2024-11-12 11:28] LABS: FREE T4 0.96 NG/DL (0.89-1.76)
[2024-11-12 11:29] LABS: VITAMIN B12 LEVEL 900 PG/ML (211-911)
[2024-11-12 11:30] LABS: ERYTHROCYTE SEDIMENTATION RATE 48 mm/hr (0-30)
[2024-11-12 11:43] LABS: CREATININE, URINE 196.8 MG/DL; MALB URINE SIEMENS 25.0 MG/L; MAU/CREAT RATIO 12.7 MCG/MG (0.0-30.0)
[2024-11-12 12:26] LABS: ESTIMATED AVERAGE GLUCOSE 137.0 MG/DL (60-110)
== END ==
LOC: M PLALAB 08:04
PROVIDERS: ATTEND Nurse Practitioner Family
DX: E11.9 Type 2 diabetes mellitus without complications (principal); E55.9 Vitamin D deficiency, unspecified; M32.9 Systemic lupus erythematosus, unspecified; R53.83 Other fatigue; E78.2 Mixed hyperlipidemia; E78.5 Hyperlipidemia, unspecified

== ENCOUNTER → 2024-11-12 | Outpatient (REF) | payer OTHER ==
[2024-11-12 15:37] LABS: COMPLEMENT C4 33.2 MG/DL (12-36)
[2024-11-12 15:38] LABS: C REACTIVE PROTEIN QUANTITATIV < 0.50 MG/DL (<1.0)
[2024-11-15 11:02] LABS: ANTI DS-DNA AB Negative (Negative)
[2024-11-15 16:42] LABS: COMPLEMENT TOTAL (CH50) > 60 U/mL (31-60)
== END ==
LOC: M SFHCRHEU 10:30
PROVIDERS: ATTEND Internal Medicine Rheumatology
DX: M32.9 Systemic lupus erythematosus, unspecified (principal); Z79.899 Other long term (current) drug therapy; M79.7 Fibromyalgia; I73.00 Raynaud's syndrome without gangrene; R10.84 Generalized abdominal pain

== ENCOUNTER → 2024-12-12 | Outpatient (CLI) | payer OTHER ==
[~2024-12-12] MED LIST changes: -EZET10TA21 PO; +EZET10TA57 PO; +ZOLP10TA11 PO; -ZOLP10TA2 PO
== END ==
LOC: M SOG 07:20
PROVIDERS: ATTEND Physician Assistant
DX: M25.532 Pain in left wrist (principal); R20.0 Anesthesia of skin